=== PATIENT | female | born 1980 | race Caucasian/White ===

== ENCOUNTER 2023-02-09 20:13 | Outpatient (REF) | payer BC, MEDICAID, SELFPAY ==
[2023-02-12 09:09] LABS: Age Gdln ACOG Testing Note (.); HPV Aptima Negative (Negative); IGP, Aptima HPV, rfx 16/18,45 Note (.)
== END 2023-02-09 20:14 | disposition home or self-care (01) ==
LOC: LAB 20:13
PROVIDERS: PCP Internal Medicine; Visit Provider Physician Assistant
DX: Z12.4 Encounter for screening for malignant neoplasm of cervix (principal); Z11.51 Encounter for screening for human papillomavirus (HPV)
CPT/HCPCS: 87624; G0145

== ENCOUNTER 2023-09-07 14:41 | Outpatient (OUT) | payer BC, SELFPAY ==
--- NOTE | 2023-09-07 14:56 | CA_ITS ---
[facility] Test Date: 2023-09-22 Pat Name: GORDON REYNA Department: Room: - Gender: Female [employer]: : 1980 Requested By: MARISELA FAUSTIN Order Number: [id number] Reading MD: NOE GARCÍA Interpretive Statements Predominant rhythm is sinus with average rate of 81 bpm Tachycardia - max rate of 115 bpm - longest episode of 5min 11sec with rates between 112-115 bpm Bradycardia - min rate of 53 bpm - longest episode of 7sec with rates between 53-54 bpm Ventricular ectopy - 401 total (<1% ) Patient triggered events: 32 - no symptoms recorded - associated with NSR - associated with PVCs IMpression: Predominant rhythm is sinus with average rate of 81 bpm Fastest rate of 115 bpm and slowest rate of 53 bpm 401 PVC No atrial fibrillation No pauses or blocks Electronically Signed On 09-23-2023 7:08:00 EST by NOE GARCÍA
== END 2023-09-07 14:42 | disposition home or self-care (01) ==
LOC: CARD 14:41
PROVIDERS: PCP Internal Medicine; Visit Provider Internal Medicine
DX: R00.2 Palpitations (principal); I47.10 Supraventricular tachycardia, unspecified; I34.1 Nonrheumatic mitral (valve) prolapse
CPT/HCPCS: 93242

== ENCOUNTER 2024-05-05 19:24 | Outpatient (REF) | payer BC, SELFPAY ==
--- OUTSIDE RECORDS SUMMARY | 2024-05-05 19:28 | XMS_ITS | CCD ---
Author Organization [facility] Care Team Providers Care Pre Assembly Wirer Name Role Phone POOL, MANDI E Unavailable Unavailable MURO, KO B Unavailable Unavailable POOL, MANDI E Unavailable Unavailable MURO, KO B Unavailable Unavailable POOL, MANDI E Unavailable Unavailable MURO, KO B Unavailable Unavailable POOL, MANDI E Unavailable Unavailable MURO, KO B Unavailable Unavailable POOL, MANDI E Unavailable Unavailable MURO, KO B Unavailable Unavailable HILL BERGMAN, LANG F Unavailable Unavail able HILL BERGMAN, LANG F Unavailable Unavail able MURO, KO B Unavailable Unavailable POOL, MANDI E Unavailable Unavailable MURO, KO B Unavailable Unavailable GUICHO CHRISTIANSEN Admitting Unavailable GUICHO CHRISTIANSEN Consulting Unavailable GUICHO CHRISTIANSEN Attending Unavailable BHASKAR, DR ANTONIO Primary Care Unavailable BHASKAR, DR ANTONIO Primary Care Unavailable GÓMEZ, DR PARKER Admitting Unavailable GÓMEZ, DR PARKER Attending Unavailable ROSIE ABARCA Consulting Unavailable ZIGGY, DR WILLIAMSON Admitting Unavailable ZIGGY, DR WILLIAMSON Consulting Unavailable BHASKAR, DR ANTONIO Primary Care Unavailable ZIGGY, DR WILLIAMSON Attending Unavailable ZIGGY, DR WILLIAMSON Admitting Unavailable ZIGGY, DR WILLIAMSON Consulting Unavailable BHASKAR, DR ANTONIO Primary Care Unavailable ZIGGY, DR WILLIAMSON Attending Unavailable ZIGGY, DR WILLIAMSON Admitting Unavailable ZIGGY, DR WILLIAMSON Consulting Unavailable BHASKAR, DR ANTONIO Primary Care Unavailable ZIGGY, DR WILLIAMSON Attending Unavailable AGLUCY RENO Consulting Unavailable MAKSIM RODRÍGUEZ Consulting Unavailable ZIGGY, DR WILLIAMSON Admitting Unavailable BHASKAR, DR ANTONIO Primary Care Unavailable ZIGGY, DR WILLIAMSON Attending Unavailable ZIGGY, DR WILLIAMSON Admitting Unavailable ZIGGY, DR WILLIAMSON Consulting Unavailable BHASKAR, DR ANTONIO Primary Care Unavailable ZIGGY, DR WILLIAMSON Attending Unavailable NICOL BRITO Attending Unavailable NICOL BRITO Admitting Unavailable NICOL BRITO Consulting Unavailable BHASKAR, DR ANTONIO Primary Care Unavailable YO, DR ALLA Gu Attending Unavailable HEMKARENA, DR ALLA Gu Admitting Unavailable BHASKAR, DR ANTONIO Primary Care Unavailable JYOTI, DR MELINDA Teran Consulting Unavailable YO, DR ALLA Gu Consulting Unavailable ZIGGY, DR WILLIAMSON Attending Unavailable ZIGGY, DR WILLIAMSON Admitting Unavailable BHASKAR, DR ANTONIO Primary Care Unavailable LAUREL, DR LISETTE Navarro Consulting Unavailable ZIGGY, DR WILLIAMSON Consulting Unavailable Bhaskar, II Ko Primary Care Provider HARLEY Thacker Attending Provider Zuleima Thacker Unavailable Bhaskar, II Ko Primary Care Provider [phone] MICHAEL Naranjo Attending Provider DO Marlin Eisenberg Attending Provider BLANCHE SHABAZZ Attending Unavailable KO MURO Attending Unavailable ALLA RAM Attending Unavailable Marlin Eisenberg Admitting Unavailable Marlin Eisenberg Attending Unavailable Ko Muro Primary [facility] Unavailable Vin Naranjo Admitting Unavailable Vin Naranjo Attending Unavailable Ko Muro [facility] Unavailable Medications Current Medications Medication Drug Class(es) Dates Sig (Normalized) Sig (Original) ALPRAZolam 0.25 mg oral tablet (4 sources) Benzodiazepine Start: 10-20-2023 take 1 tablet by mouth once daily at bedtime Alprazolam (Xanax) 0.25 mg tablet Active 0.25 MG PO Daily at bedtime October 20, 2023 12:00am Xanax Active loratadine 10 mg oral tablet (1 source) take 1 tablet by mouth once daily Loratadine 10 MG take 1 tablet by mouth once daily Oral for 30 Active 24 hr metoprolol succinate 50 mg extended release oral tablet (6 sources) beta-Adrenergic Davian Start: 11-20-2023 take 50 mg by mouth once daily Metoprolol Succinate Active 50 MG PO Daily November 20, 2023 12:00am Start: 06-22-2018 End: 10-20-2023 take 50 mg by mouth every six hours Metoprolol Tartrate Discontinued 50 MG PO Q6H June 22, 2018 1:00am October 20, 2023 3:08pm Metoprolol Succi simba Active Wrist Splint/Right XL - (1 source) Start: 08-01-2022 Wrist Splint/R ight XL - as directed Jul, Active zolpidem tartrate 5 mg oral tablet (4 sources) gamma-Aminobuty izzy Acid-ergic Agonist Start: 10-20-2023 take 1 tablet by mouth once daily at bedtime Zolpidem (Ambien) 5 mg tablet Active 5 MG PO Daily at bedtime October 20, 2023 12:00am may repeat once if no response in 30-60 minutes Ambien Active Completed/Discontinued Medications Medication Drug Class(es) Dates Sig (Normalized) Sig (Original) acetaminophen 325 mg / HYDROcodone bitartrate 5 mg oral tablet (9 sources) Opioid Agonist Start: 07-08-2018 End: 07-15-2018 take 1 tablet by mouth every six hours Hydrocodone-Acetami nophen Discontinued 1 TAB PO Q6H 28 7 July 08, 2018 July 15, 2018 1:02am Start: 06-22-2018 Hydrocodone-Ac etaminophen Active 1 TAB PO As Directed June 22, 2018 1:00am adapalene 0.001 mg/mg topical gel (5 sources) Retinoid Start: 06-22-2018 End: 07-08-2018 Adapalene Discontinued 1 APPLIC TOPICAL Daily at bedtime June 22, 2018 1:00am July 08, 2018 8:35am Adapalene 0.1 % apply to affected area ON FACE at bedtime if needed External for 30 Active ibuprofen 200 mg oral tablet (4 sources) Nonsteroidal Anti-inflammatory Drug Start: 06-22-2018 End: 10-20-2023 take 600 mg by mouth three times daily Ibuprofen Discontinued 600 MG PO Three times daily June 22, 2018 1:00am October 20, 2023 3:08pm sertraline 25 mg oral tablet (3 sources) Serotonin Reuptake Inhibitor Start: 10-20-2023 End: 11-20-2023 take 25 mg by mouth once daily Sertraline Discontinued 25 MG PO Daily October 20, 2023 12:00am November 20, 2023 7:22am Problems Active Problems Problem Classification Problem Date Documented Da te Episodic/Chronic Anxiety disorders (1 source) Anxiety disorder, unspecified; Translations: [ANXIETY DISORDER UNSPECIFIED] Onset: 03-12-2022 Chronic Esophageal disorders (1 source) Gastro-esophageal reflux disease without esophagitis; Translations: [GERD WITHOUT ESOPHAGITIS] Onset: 03-12-2022 Chronic Genitourinary congenital anomalies (3 sources) Aplasia of body of uterus; Translations: [Agenesis and aplasia of uterus] 10-20-2023 Chronic Menstrual disorders (7 sources) Amenorrhea, unspecified; Translations: [Excessive and frequent menstruation with irregular cycle] Onset: 01-29-2017 Chronic Neoplasms of unspecified nature or uncertain behavior (1 source) Neoplastic disease; Translations: [Neoplasm of unspecified behavior of bone, soft tissue, and skin] Episodic Other female genital disorders (5 sources) Unspecified dyspareunia; Translations: [UNSPECIFIED DYSPAREUNIA] Onset: 03-05-2022 Chronic Other female genital disorders (4 sources) Abnormal uterine and vaginal bleeding, unspecified; Translations: [ABNORMAL UTERINE VAGINAL BLEED UNS] Onset: 11-04-2021 Chronic Other gastrointestinal disorders (3 sources) Constipation alternates with diarrhea; Translations: [Other specified symptoms and signs involving the digestive system and abdomen] 10-20-2023 Episodic Other gastrointestinal disorders (3 sources) H/O: abdominal hernia; Translations: [Personal history of other diseases of the digestive system] 10-20-2023 Episodic Other gastrointestinal disorders (1 source) Diarrhea, unspecified; Translations: [Diarrhea, unspecified] Onset: 11-20-2023 Episodic Other nervous system disorders (1 source) Carpal tunnel syndrome, right upper limb Chronic Other non-traumatic joint disorders (1 source) Pain in right wrist Episodic Substance-related disorders (1 source) Nicotine dependence, cigarettes, uncomplicated; Translations: [NICOTINE DEPEND CIGARETTES UNCOMP] Onset: 03-05-2022 Chronic Unclassified (4 sources) 13 weeks gestation of ; Translations: [27 weeks gestation of ] Onset: 02-24-2017 Unclassified (1 source) PERSONAL HISTORY OF COVID-19; Translations: [PERSONAL HISTORY OF COVID-19] Onset: 03-12-2022 Unclassified (1 source) CONTACT W/AND (SUSP) EXPOS COVID-19; Translations: [CONTACT W/AND (SUSP) EXPOS COVID-19] Onset: 03-02-2022 Unclassified (1 source) COUGH, UNSPECIFIED; Translations: [COUGH, UNSPECIFIED] Onset: 08-07-2021 Viral infection (1 source) COVID-19; Translations: [COVID-19] Onset: 07-23-2021 Past or Other Problems Problem Classification Problem Date Documented Da te Episodic/Chronic Abdominal pain (7 sources) Lower abdominal pain; Translations: [Lower abdominal pain, unspecified] Onset: 10-29-2023 10-20-2023 Episodic Contraceptive and procreative management (4 sources) Encounter for sterilization; Translations: [ENCOUNTER FOR STERILIZATION] Onset: 02-28-2022 Episodic Genitourinary symptoms and ill-defined conditions (2 sources) Dysuria; Translations: [Other symptoms and signs involving the genitourinary system] Onset: 09-30-2017 Episodic Nonspecific chest pain (4 sources) Chest pain, unspecified; Translations: [CHEST PAIN UNSPECIFIED] Onset: 07-31-2021 Episodic Normal and/or delivery (5 sources) Encounter for supervision of normal , unspecified, first trimester; Translations: [Encounter for full-term uncomplicated delivery] Onset: 01-29-2017 Episodic Other aftercare (1 source) Other salvage determiner (current) drug therapy; Translations: [OTH LONG-TERM CURRENT DRUG THERAPY] Onset: 03-12-2022 Episodic Other complications of (3 sources) Outcome of delivery, unspecified; Translations: [Supervision of other high risk pregnancies, third trimester] Onset: 06-10-2017 Episodic Other connective tissue disease (4 sources) Pain in right leg; Translations: [PAIN IN RIGHT LEG] Onset: 03-11-2022 Episodic Other gastrointestinal disorders (4 sources) Other specified symptoms and signs involving the digestive system and abdomen; Translations: [Other symptoms involving digestive system] Onset: 10-29-2023 10-20-2023 Episodic Other lower respiratory disease (1 source) Personal history of pneumonia (recurrent); Translations: [PERSONAL HX OF PNEUMONIA RECURRENT] Onset: 03-12-2022 Episodic Other upper respiratory infections (4 sources) Acute upper respiratory infection, unspecified; Translations: [ACUTE UP RESPIRATORY INFECTION UNS] Onset: 07-16-2021 Episodic Ovarian cyst (1 source) Other ovarian cyst, right side; Translations: [OTHER OVARIAN CYST RIGHT SIDE] Onset: 11-20-2021 Episodic Residual codes; unclassified (1 source) Other specified postprocedural states; Translations: [[facility] SPECIFIED POSTPROCEDURAL STATES] Onset: 03-12-2022 Episodic Results Test Name Value Interpretation Reference Range Facility HCG ( test) Alan d Ql (U)Ordered By: Marlin Eisenberg on 11-20-2023 HCG ( test) Ql (U) Negative [facility] HCG,Urineon 11-20-2023 Beta HCG ( test) Ql (U) Negative Normal [facility] Comment on above: Result Comment: PERF ORMED BY: [place] [address] PATHOLOGIST [employer] SHOBHA LANDIN M.D. Performed By: #### U HCG #### [address] Niranjan 11-20-2023 L Specimen: [id number] Received: 11/20/23 Status: ISSAC Capellan Num: [id number] Spec Type: Surgical Subm Dr: Marlin Eisenberg DO Tissues: A Colon Biopsy (RANDOM RT) B Colon Biopsy (RANDOM LT) C Colon Biopsy (SIGMOID POLYP) Procedures: HE/6, Gross/Micro L4/3 Age/ Patient Sex Location Account Attending Physician Gordon Reyna 43/F [id number] Marlin Eisenberg DO SPEC NUM: [id number] RECD: 11/20/23 STATUS: ISSAC CAPELLAN NUM: [id number] GOVIND: 11/20/23- SUBM DR: Marlin Eisenberg DO ENTERED: 11/20/[address] [facility] [address]: SPEC TYPE: Surgical DEPT: S ORDERED: HE/6, Gross/Micro L4/3 ORDERED: HE/6, Gross/Micro L4/3 Pathological Diagnosis A. Right colon, biopsies: - No active colitis, features of microscopic (lymphocytic) colitis, collagenous colitis or other diagnostic abnormalities. B. Left colon, biopsies: - No active colitis, features of microscopic (lymphocytic) colitis, collagenous colitis or other diagnostic abnormalities. C. Sigmoid polyp, polypectomy: - Hyperplastic polyp. Gross Description A. Received in formalin, labeled with the patient's name and random right colon BX are 3 mera mucosal tissue fragments ranging from 0.4 x 0.3 x 0.1 cm to 0.3 x 0.3 x 0.1 cm, entirely submitted in A1. B. Received in formalin, labeled with the patient's name and random left colon BX are 3 mera mucosal tissue fragments ranging from 0.6 x 0.3 x 0.1 cm to 0.4 x 0.3 x 0.1 cm, entirely submitted in B1. C. Received in formalin labeled with the patient's name and sigmoid polyp is a 0.3 x 0.2 x 0.2 cm mera polypoid tissue fragment, entirely submitted in C1. ---- Specimen: [id number] Received: 11/20/23 Status: ISSAC Capellan Num: [id number] Spec Type: Surgical Subm Dr: Marlin Eisenberg DO Tissues: A Colon Biopsy (RANDOM RT) B Colon Biopsy (RANDOM LT) C Colon Biopsy (SIGMOID POLYP) Procedures: HE/6, Irving/Jim L4/3 ---- Patient: Gordon Reyna [id number] (Continued) ---- Specimen: [id number] Received: 11/20/23 (Continued) Gross Description (Continued) Signed (signature on file) Lisette Cosby MD 11/23/23 1437 ---- Specimen: Received: 11/20/23 Status: ISSAC Matajohn Num: [id number] Spec Type: Surgical Subm Dr: Marlin Eisenberg DO Tissues: A Colon Biopsy (RANDOM RT) B Colon Biopsy (RANDOM LT) C Colon Biopsy (SIGMOID POLYP) Procedures: HE/Anders, Gross/Micro L4/3 ---- Patient: Gordon Reyna [id number] (Continued) ---- Specimen: Received: 11/20/23 (Continued) Gross Description (Continued) Clinical history: Constipation/diarrhea. Rule out microscopic colitis CPT Codes 96935u8 ---- ---- Specimen: [id number] Received: 11/20/23 Status: ISSAC Marilia Num: [id number] Spec Type: Surgical Subm Dr: Marlin Eisenberg DO Tissues: A Colon Biopsy (RANDOM RT) B Colon Biopsy (RANDOM LT) C Colon Biopsy (SIGMOID POLYP) Procedures: MICHELLE/Irving Mcnamara/Jim L4/3 ---- Patient: Gordon Reyna [id number] (Continued) ---- Signed (signature on file) Lisette Cosby MD 11/23/23 5118 Normal [facility] CT abdomen pelvis w mraisol CT abdomen pelvis w con [facility] [place] [address] [place] [address] CT Scan Report Signed Patient: Gordon Reyna MR#: [id number] : 1980 Acct:[id number] Age/Sex: 43 / F ADM Date: 10/29/23 Loc: CT Room: Type: [facility] Attending Dr: Vin Naranjo APRN Copies to: Vin Naranjo APRN Ordering Provider: Vin Naranjo APRN Date of Service: 10/29/23 CT/CT abdomen pelvis w con: R10.30 - Lower abdominal pain, unspecified CT ABDOMEN AND PELVIS WITH INTRAVENOUS CONTRAST: CLINICAL HISTORY: Bilateral lower abdominal pain. COMPARISON: None TECHNIQUE: Spiral images were obtained through the abdomen and pelvis following the administration of intravenous contrast. This CT exam was performed using one or more following dose reduction techniques: Automated exposure control, adjustment of the mA and/or kV according to patient size, or use of iterative reconstruction technique. FINDINGS: Lung Bases: [Mild bibasilar atelectasis/scarring.] Organs:Liver gallbladder portal vein spleen pancreas adrenal glands kidneys and aorta all appear unremarkable.[ GI: Stomach is grossly unremarkable. Small bowel appears nondilated. Appendix is normal. No acute colonic abnormality.[ Pelvis:[Urinary bladder is grossly unremarkable. Uterus is grossly unremarkable. No adnexal mass. Right ovarian cyst measuring 3.4 cm.] Peritoneum/Retroperito neum:No free air, free fluid or lymphadenopathy.[ Abd wall/Bones:Abdominal wall demonstrated no acute findings. Osseous structures demonstrate no acute bony process.[ CT/CT abdomen pelvis w con IMPRESSION: No acute findings. 3.4 cm right ovarian cyst. Impression dictated by: Tee Hall Jr., D.OWestley10/29/2023 2:04 PM Dictation Location: [id number] Transcribed By: [place] 10/29/23 1404 Dictated By: Tee Hall Jr, DO 10/29/23 1402 Signed By: 10/29/23 140 Normal [facility] XR wrist RT min 3V*on 2022 XR wrist RT min 3V* [facility] Other XR wrist RT min 3V* [facility] [place] [facility] Other XR wrist RT min 3V* [address] Other XR wrist RT min 3V* [place] [address] [facility] Other XR wrist RT min 3V* XRay Report [facility] Other XR wrist RT min 3V* Signed [facility] Other XR wrist RT min 3V* Patient: Gordon Reyna MR#: [id number] [facility] Other XR wrist RT min 3V* : 1980 Acct:[id number] [facility] Other XR wrist RT min 3V* Age/Sex: 41 / F ADM Date: 08/01/22 [facility] Other XR wrist RT min 3V* Loc: XDUCLY Room: Type: [facility] Other XR wrist RT min 3V* Attending Dr: Zuleima SOUZA [facility] Other XR wrist RT min 3V* Copies to: HARLEY Nichole [facility] Other XR wrist RT min 3V* Ordering Provider: HARLEY Nichole [facility] Other XR wrist RT min 3V* Date of Service: 08/01/22 [facility] Other XR wrist RT min 3V* XR/XR wrist RT min 3V*: Right wrist pain [facility] Other XR wrist RT min 3V* XR wrist RT min 3V* 08/01/2022 5:40 PM [facility] Other XR wrist RT min 3V* SIGNS AND SYMPTOMS: Fall with pain along the palmar aspect of the right wrist [facility] Other XR wrist RT min 3V* PROTOCOL: Frontal, lateral, and oblique radiographs of the right breast [facility] Other XR wrist RT min 3V* COMPARISON: None [facility] Other XR wrist RT min 3V* FINDINGS: [facility] Other XR wrist RT min 3V* The radiocarpal join t is preserved. There is no fracture or dislocation. No significant soft tissue [facility] Other XR wrist RT min 3V* swelling. [facility] Other XR wrist RT min 3V* XR/XR wrist RT min 3V* [facility] Other XR wrist RT min 3V* IMPRESSION: [facility] Other XR wrist RT min 3V* No acute bony injury or significant degenerative change. [facility] Other XR wrist RT min 3V* Impression dictated by: Maurilio Driver M.D.08/01/2022 5:57 PM [facility] Other XR wrist RT min 3V* Dictation Location: [place] [address] [facility] Other XR wrist RT min 3V* Transcribed By: JOEL 08/01/221756 [facility] Other XR wrist RT min 3V* Dictated By: Maurilio Driver II, MD 08/01/221754 [facility] Other XR wrist RT min 3V* Signed By: [facility] Other XR wrist RT min 3V* 08/01/221756 [facility] Other ESTRONEon 04-30-2022 Estrone, Serum 47 pg/mL Normal 27-231 [facility] Comment on above: Result Comment: Rang e Adult (Premenopausal) 27 - 231 Menstrual Cycle (1-10 days) 19 - 149 Menstrual Cycle (11-20 days) 32 - 176 Menstrual Cycle (21-30 days) 37 - 200 Performed By: #### R SPLUS #### [facility] [address] [place] [address] Dr. Johnny Johnson TESTOSTERONE, FREE,DIRECT, T OTALon 04-30-2022 Free Testosterone(Direct ) 3.2 pg/mL Normal 0.0-4.2 [facility] Comment on above: Result Comment: Perf ormed at: BN Performed By: #### R SPLUS #### [facility] [address] [place] [address] Dr. Johnny Johnson Testosterone [Mass/Vol] 41 ng/dL Normal 8-60 [facility] Comment on above: Result Comment: Perf ormed at: CB Performed By: #### R SPLUS #### [facility] [address] [place] [address] Dr. Johnny Johnson SEROTONINon 04-29-2022 Serotonin, Serum 185 ng/mL Normal 31-207 [facility] Comment on above: Performed By: #### R SPLUS #### [facility] [address] [place] [address] Dr. Johnny Johnson VIT D 1 25 DIHYDROXYon 04-28 Calcitriol(1,25 di-OH Vit D) 33.4 pg/mL Normal 24.8-81.5 [facility] Comment on above: Result Comment: Pl ease note reference interval change Performed By: #### H CGSUB #### [facility] [address] [place] [address] Dr. Johnny Johnson CORTISOLon 04-26-2022 Cortisol 18.0 ug/dL Normal [facility] Comment on above: Result Comment: Chris isol AM 6.2 - 19.4 Cortisol PM 2.3 - 11.9 Performed By: #### H CGSUB #### [facility] [address] [place] [address] Dr. Johnny Johnson DHEA-SULFATEon 04-26-2022 DHEA-Sulfate 124.0 ug/dL Normal 57.3-279.2 [facility] Comment on above: Performed By: #### D NAYLA #### [facility] [address] [place] [address] Dr. Johnny Johnson ESTRADIOLon 04-26-2022 Estradiol 111.0 pg/mL Normal [facility] Comment on above: Result Comment: Adul t Female: Follicular phase 12.5 - 166.0 Ovulation phase 85.8 - 498.0 Luteal phase 43.8 - 211.0 Postmenopausal <6.0 - 54.7 1st trimester 215.0 - >4300.0 Stacie ECLIA methodology Performed By: #### E CONNOR #### [facility] [address] [place] [address] Dr. Johnny Johnson INSULINon 04-26-2022 Insulin 12.0 uIU/mL Normal 2.6-24.9 [facility] Comment on above: Performed By: #### H CGSUB #### [facility] [address] [place] [address] Dr. Johnny Johnson PROGESTERONEon 04-26-2022 Progesterone 0.4 ng/mL Normal [facility] Comment on above: Result Comment: Foll icular phase 0.1 - 0.9 Luteal phase 1.8 - 23.9 Ovulation phase 0.1 - 12.0 First trimester 11.0 - 44.3 Second trimester 25.4 - 83.3 Third trimester 58.7 - 214.0 Postmenopausal 0.0 - 0.1 Performed By: #### P ARCHIEES #### [facility] [address] [place] [address] Dr. Johnny Johnson GLUCOSE BLOODon 04-25-2022 Glucose [Mass/Vol] 95 mg/dL Normal 74-106 [facility] Comment on above: Performed By: #### G MONO #### [facility] [address] [place] [address] Dr. Johnny Johnson HCG-BETA SUBUNIT QUANTon hCG,Beta Subunit,Qnt,Serum <1 Normal [facility] Comment on above: Result Comment: Fema le (Non-) 0 - 5 (Postmenopausal) 0 - 8 . Female () Weeks of Gestation 3 6 - 71 4 10 - 750 5 655 - 1282 6 085 - 39039 7 [phone] -[id number] 8 28694 -[phone] 9 50465 -812159 10 25910 -692047 12 57862 -784409 14 85305 - 67234 15 33574 - 33786 16 8385 - 52257 17 0698 - 16888 18 1569 - 51829 Stacie ECLIA methodology Performed By: #### H CGSUB #### [facility] [address] [place] [address] Dr. Johnny Johnsno CBC AUTO DIFFon 02-26-2022 BASO # 0.0 103/ul Normal 0.0-0.1 [facility] Comment on above: Performed By: #### R SPLUS #### [facility] [address] [place] [address] Dr. Johnny Johnson Basophils/100 WBC (Bld) 0.7 % Normal 0.2-2.0 [facility] Comment on above: Performed By: #### R SPLUS #### [facility] [address] [place] [address] Dr. Johnny Johnson EO # 0.1 103/ul Normal 0.0-0.7 [facility] Comment on above: Performed By: #### R SPLUS #### [facility] [address] [place] [address] Dr. Johnny Johnson Eosinophils/100 WBC (Bld) 1.7 % Normal 0.9-7.0 [facility] Comment on above: Performed By: #### R SPLUS #### [facility] [address] [place] [address] Dr. Johnny Johnson Erythrocyte distribution width (RBC) [Ratio] 13.4 % Normal 11.0-15.0 [facility] Comment on above: Performed By: #### R SPLUS #### [facility] [address] [place] [address] Dr. Johnny Johnson Hematocrit (Bld) [Volume fraction] 42.4 % Normal 36.0-48.0 [facility] Comment on above: Performed By: #### R SPLUS #### [facility] [address] [place] [address] Dr. Johnny Johnson Hemoglobin (Bld) [Mass/Vol] 14.0 g/dL Normal 12.0-16.0 [facility] Comment on above: Performed By: #### R SPLUS #### [facility] [address] [place] [address] Dr. Johnny Johnson IG # 0.01 10e3/ul Normal 0.00-0.03 [facility] Comment on above: Performed By: #### R SPLUS #### [facility] [address] [place] [address] Dr. Johnny Johnson IG % 0.2 % Normal 0.0-0.5 [facility] Comment on above: Performed By: #### R SPLUS #### [facility] Laboratory [address] [place] [address] Dr. Johnny Johnson LYMPH # 2.4 103/ul Normal 1.2-3.8 [facility] Comment on above: Performed By: #### R SPLUS #### [facility] Laboratory [address] [place] [address] Dr. Johnny Johnson Lymphocytes/100 WBC (Bld) 41.4 % Normal 20.5-60.0 [facility] Comment on above: Performed By: #### R SPLUS #### [facility] Laboratory [address] [place] [address] Dr. Johnny Johnson MANUAL DIFF REQ NO Normal [facility] Comment on above: Performed By: #### R SPLUS #### [facility] Laboratory [address] [place] [address] Dr. Johnny Johnson MCH (RBC) [Entitic mass] 29.9 pg Normal 26.7-34.0 [facility] Comment on above: Performed By: #### R SPLUS #### [facility] Laboratory [address] [place] [address] Dr. Johnny Johnson MCHC (RBC) [Mass/Vol] 33.0 g/dL Normal 29.9-35.2 [facility] Comment on above: Performed By: #### R SPLUS #### [facility] Laboratory [address] [address] [address] Johnny Johnson MCV (RBC) [Entitic vol] 90.6 fL Normal 81.0-99.0 [facility] Comment on above: Performed By: #### R SPLUS #### [facility] Laboratory [address] [address] [address] Johnny Johnson MONO # 0.4 103/ul Normal 0.3-0.8 [facility] Comment on above: Performed By: #### R SPLUS #### [facility] Laboratory [address] [address] [address] Johnny Johnson Monocytes/100 WBC (Bld) 6.6 % Normal 1.7-12.0 [facility] Comment on above: Performed By: #### R SPLUS #### [facility] Laboratory [address] [place] [address] Dr. Johnny Johnson NEUT # 2.9 103/ul Normal 1.4-6.5 [facility] Comment on above: Performed By: #### R SPLUS #### [facility] Laboratory [address] [place] [address] Dr. Johnny Johnson Neutrophils/100 WBC (Bld) 49.4 % Normal 43.0-75.0 [facility] Comment on above: Performed By: #### R SPLUS #### [facility] Laboratory [address] [place] [address] Dr. Johnny Johnson Platelet mean volume (Bld) [Entitic vol] 10.5 fL Normal 9.5-13.5 [facility] Comment on above: Performed By: #### R SPLUS #### [facility] Laboratory [address] [place] [address] Dr. Johnny Johnson PLT 221 103/ul Normal 150-450 [facility] Comment on above: Performed By: #### R SPLUS #### [facility] Laboratory [address] [place] [address] Dr. Johnny Johnson RBC 4.68 106/ul Normal 4.20-5.40 [facility] Comment on above: Performed By: #### R SPLUS #### [facility] Laboratory [address] [place], [place] [address] Dr. Johnny Johnson WBC 5.9 103/ul Normal 4.0-11.0 [facility] Comment on above: Performed By: #### R LIT #### [facility] [address] [place], [place] [address] Dr. Johnny Johnson Covid-19 PCR ([facility])on SARS-CoV-2 (COVID-19) RNA ANATOLY+probe Ql (Unsp spec) Not detected Normal NOT DETECTED [facility] Comment on above: Result Comment: This test is not yet approved or cleared by the [place] FDA. When there are no FDA-approved or cleared tests available, and other criteria are met, FDA can make tests available under an emergency access mechanism called an Emergency Use Authorization (EUA). The EUA for this test is supported by the Bottom[employer] Operator of Health and Human Service's (HHS's) declaration that circumstances exist to justify the emergency use of in vitro diagnostics for the detection and/or diagnosis of the virus that causes COVID-19. This EUA will remain in effect (meaning this test can be used) for the duration of the COVID-19 declaration justifying emergency of IVDs, unless it is terminated or revoked by FDA (after which the test may no longer be used). When diagnostic testing is negative, the possibility of a false negative should be considered in the context of a patient's recent exposures and the presence of clinical signs and symptoms consistent with SARS-CoV-2. Performed By: #### R LIT #### [facility] Laboratory [address] [place] [address] [id number] [address] Johnny Johnson US PELVIS AND TRANSVAGon US PELVIS AND TRANSVAG EXAMINATION: US PELVIS AND TRANSVAG HISTORY: Excessive menstruation with irregular cycle COMPARISON: 09/05/2019 FINDINGS: Transabdominal and transvaginal images The uterus is normal in size, contour and echotexture measuring 9.8 x 4.3 x 6.1 cm, anteverted. The endometrium measures 6.2 mm, normal. The right ovary is normal in size and contour measuring 3.9 x 2.3 x 3.9 cm. Area of anechoic echogenicity measuring 2.7 x 2.1 x 1.9 cm. Normal color and Doppler flow. Normal resistive index of 0.53. Left ovary is normal in appearance measuring 3.1 x 1.9 x 1.5 cm. Normal color Doppler flow. Normal resistive index of 0.62. IMPRESSION: 2.7 cm right ovarian simple cyst No ultrasound explanation for the patient's menorrhagia Electronically authenticated by: LISETTE HAIRSTON Date: 2021-11-18 17:12 Normal [facility] CBC AUTO DIFFon 11-15-2021 BASO # 0.0 103/ul Normal 0.0-0.1 [facility] Comment on above: Performed By: #### H CGSUB #### [facility] Laboratory [address] [place] [address] Dr. Johnny Johnson Basophils/100 WBC (Bld) 0.3 % Normal 0.2-2.0 [facility] Comment on above: Performed By: #### H CGSUB #### [facility] Laboratory [address] [place] [address] Dr. Johnny Johnson EO # 0.1 103/ul Normal 0.0-0.7 [facility] Comment on above: Performed By: #### H CGSUB #### [facility] Laboratory [address] [place] [address] Dr. Johnny Johnson Eosinophils/100 WBC (Bld) 1.1 % Normal 0.9-7.0 [facility] Comment on above: Performed By: #### H CGSUB #### [facility] Laboratory [address] [place] [address] Dr. Johnny Johnson Erythrocyte distribution width (RBC) [Ratio] 13.1 % Normal 11.0-15.0 [facility] Comment on above: Performed By: #### H CGSUB #### [facility] Laboratory [address] [place] [address] Dr. Johnny Johnson Hematocrit (Bld) [Volume fraction] 40.2 % Normal 36.0-48.0 [facility] Comment on above: Performed By: #### H CGSUB #### [facility] Laboratory [address] [place] [address] Dr. Johnny Johnson Hemoglobin (Bld) [Mass/Vol] 13.1 g/dL Normal 12.0-16.0 [facility] Comment on above: Performed By: #### H CGSUB #### [facility] [address] [place] [address] Dr. Johnny Johnson IG # 0.02 10e3/ul Normal 0.00-0.03 [facility] Comment on above: Performed By: #### H CGSUB #### [facility] [address] [place] [address] Dr. Johnny Johnson IG % 0.2 % Normal 0.0-0.5 [facility] Comment on above: Performed By: #### H CGSUB #### [facility] [address] [place] [address] Dr. Johnny Johnson LYMPH # 2.2 103/ul Normal 1.2-3.8 [facility] Comment on above: Performed By: #### H CGSUB #### [facility] [address] [place] [address] Dr. Johnny Johnson Lymphocytes/100 WBC (Bld) 25.1 % Normal 20.5-60.0 [facility] Comment on above: Performed By: #### H CGSUB #### [facility] [address] [place] [address] Dr. Johnny Johnson MANUAL DIFF REQ NO Normal [facility] Comment on above: Performed By: #### H CGSUB #### [facility] [address] [place] [address] Dr. Johnny Johnson MCH (RBC) [Entitic mass] 30.0 pg Normal 26.7-34.0 [facility] Comment on above: Performed By: #### H CGSUB #### [facility] Laboratory [address] [place] [address] Dr. Johnny Johnson MCHC (RBC) [Mass/Vol] 32.6 g/dL Normal 29.9-35.2 [facility] Comment on above: Performed By: #### H CGSUB #### [facility] Laboratory [address] [place] [address] Dr. Johnny Johnson MCV (RBC) [Entitic vol] 92.0 fL Normal 81.0-99.0 [facility] Comment on above: Performed By: #### H CGSUB #### [facility] Laboratory [address] [place] [address] Dr. Johnny Johnson MONO # 0.6 103/ul Normal 0.3-0.8 [facility] Comment on above: Performed By: #### H CGSUB #### [facility] Laboratory [address] [place] [address] Dr. Johnny Johnson Monocytes/100 WBC (Bld) 6.5 % Normal 1.7-12.0 [facility] Comment on above: Performed By: #### H CGSUB #### [facility] Laboratory [address] [place] [address] Dr. Johnny Johnson NEUT # 5.9 103/ul Normal 1.4-6.5 [facility] Comment on above: Performed By: #### H CGSUB #### [facility] [address] [place] [address] Dr. Johnny Johnson Neutrophils/100 WBC (Bld) 66.8 % Normal 43.0-75.0 [facility] Comment on above: Performed By: #### H CGSUB #### [facility] Laboratory [address] [place] [address] Dr. Johnny Johnson Platelet mean volume (Bld) [Entitic vol] 10.7 fL Normal 9.5-13.5 [facility] Comment on above: Performed By: #### H CGSUB #### [facility] Laboratory [address] [place] [address] Dr. Johnny Johnson PLT 222 103/ul Normal 150-450 [facility] Comment on above: Performed By: #### H CGSUB #### [facility] [address] [place] [address] Dr. Johnny Johnson RBC 4.37 106/ul Normal 4.20-5.40 [facility] Comment on above: Performed By: #### H CGSUB #### [facility] [address] [place] [address] Dr. Johnny Johnson WBC 8.8 103/ul Normal 4.0-11.0 [facility] Comment on above: Performed By: #### H CGSUB #### [facility] Laboratory [address] [place] [address] Dr. Johnny Johnson PREG QUANT HCGon 11-15-2021 HCG QUANT <1 Normal [facility] Comment on above: Performed By: #### T SH, PREGQNT #### [facility] Laboratory [address] [place] [address] Dr. Johnny Johnson HCG RANGE SEE BELOW Normal [facility] Comment on above: Result Comment: 5-50 0-1 WEEK 40-300 1-2 WEEKS 100-1,000 2-3 WEEKS 500-6,000 3-4 WEEKS 5,000-200,000 1-2 MONTHS 10,000-100,000 2-3 MONTHS 3,000-50,000 2ND TRIMESTER 1,000-50,000 3RD TRIMESTER Performed By: #### T SH, PREGQNT #### [facility] [address] [place] [address] Dr. Johnny Johnson PROTIMEon 11-15-2021 INR Coag (PPP) [Relative time] 0.99 {INR} Normal [facility] Comment on above: Performed By: #### P TT, PT #### [facility] Laboratory [address] [place] [address] Dr. Johnny Johnson INR GUIDELINES SEE BELOW Normal The [facility] Comment on above: Result Comment: JEANCARLOS RED INR: 2.0 - 3.0 CONDITIONS NOT LISTED BELOW 2.5 - 3.5 FOR PROSTHETIC HEART VALVE REPLACEMENT 2.5 - 3.5 RECURRENT THROMBOSIS Performed By: #### P TT, PT #### [facility] [address] [place] [address] Dr. Johnny Johnson PT Coag (PPP) [Time] 10.7 s Normal 9.0-11.6 [facility] Comment on above: Performed By: #### P TT, PT #### [facility] [address] [place] [address] Dr. Johnny Johnson PTTon 11-15-2021 aPTT Coag (Bld) [Time] 27.6 s Normal 22.3-36.2 [facility] Comment on above: Performed By: #### P TT, PT #### [facility] [address] [place] [address] Dr. Johnny Johnson TSHon 11-15-2021 TSH 2.349 uIU/mL Normal 0.470-4.680 [facility] Comment on above: Performed By: #### T SH, PREGQNT #### [facility] [address] [place] [address] Dr. Johnny Johnson TSH RANGE SEE BELOW Normal [facility] Comment on above: Result Comment: <0.3 4 UIU/ml HYPERTHYROID 0.34-5.60 UIU/ml EUTHYROID >5.60 UIU/ml HYPOTHYROID Performed By: #### T SH, PREGQNT #### [facility] Laboratory [address] [place] [address] Dr. Johnny Johnson CBC AUTO DIFFon 11-04-2021 BASO # 0.0 103/ul Normal 0.0-0.1 [facility] Comment on above: Performed By: #### R SPLUS #### [facility] Laboratory [address] [place] [address] Dr. Johnny Johnson Basophils/100 WBC (Bld) 0.4 % Normal 0.2-2.0 [facility] Comment on above: Performed By: #### R SPLUS #### [facility] [address] [place] [address] Dr. Johnny Johnson EO # 0.1 103/ul Normal 0.0-0.7 [facility] Comment on above: Performed By: #### R SPLUS #### [facility] [address] [place] [address] Dr. Johnny Johnson Eosinophils/100 WBC (Bld) 0.9 % Normal 0.9-7.0 [facility] Comment on above: Performed By: #### R SPLUS #### [facility] Laboratory [address] [place] [address] Dr. Johnny Johnson Erythrocyte distribution width (RBC) [Ratio] 13.1 % Normal 11.0-15.0 [facility] Comment on above: Performed By: #### R SPLUS #### [facility] [address] [address] [address] Johnny Johnson Hematocrit (Bld) [Volume fraction] 43.0 % Normal 36.0-48.0 [facility] Comment on above: Performed By: #### R SPLUS #### [facility] [address] [address] [address] Johnny Johnson Hemoglobin (Bld) [Mass/Vol] 13.8 g/dL Normal 12.0-16.0 [facility] Comment on above: Performed By: #### R SPLUS #### [facility] [address] [address] [address] Johnny Johnson IG # 0.02 10e3/ul Normal 0.00-0.03 [facility] Comment on above: Performed By: #### R SPLUS #### [facility] [address] [place] [address] Dr. Johnny Johnson IG % 0.3 % Normal 0.0-0.5 [facility] Comment on above: Performed By: #### R SPLUS #### [facility] [address] [address] [address] Johnny Johnson LYMPH # 2.0 103/ul Normal 1.2-3.8 [facility] Comment on above: Performed By: #### R SPLUS #### [facility] [address] [address] [address] Johnny Johnson Lymphocytes/100 WBC (Bld) 27.1 % Normal 20.5-60.0 [facility] Comment on above: Performed By: #### R SPLUS #### [facility] [address] [address] [address] Johnny Johnson MANUAL DIFF REQ NO Normal [facility] Comment on above: Performed By: #### R SPLUS #### [facility] [address] [place] [address] Dr. Johnny Johnson MCH (RBC) [Entitic mass] 29.3 pg Normal 26.7-34.0 [facility] Comment on above: Performed By: #### R SPLUS #### [facility] [address] [address] [address] Johnny Johnson MCHC (RBC) [Mass/Vol] 32.1 g/dL Normal 29.9-35.2 [facility] Comment on above: Performed By: #### R SPLUS #### [facility] [address] [place] [address] Dr. Johnny Johnson MCV (RBC) [Entitic vol] 91.3 fL Normal 81.0-99.0 [facility] Comment on above: Performed By: #### R SPLUS #### [facility] [address] [place] [address] Dr. Johnny Johnson MONO # 0.5 103/ul Normal 0.3-0.8 [facility] Comment on above: Performed By: #### R SPLUS #### [facility] [address] [place] [address] Dr. Johnny Johnson Monocytes/100 WBC (Bld) 6.4 % Normal 1.7-12.0 [facility] Comment on above: Performed By: #### R SPLUS #### [facility] [address] [place] [address] Dr. Johnny Johnson NEUT # 4.8 103/ul Normal 1.4-6.5 [facility] Comment on above: Performed By: #### R SPLUS #### [facility] [address] [place] [address] Dr. Johnny Johnson Neutrophils/100 WBC (Bld) 64.9 % Normal 43.0-75.0 [facility] Comment on above: Performed By: #### R SPLUS #### [facility] [address] [place] [address] Dr. Johnny Johnson Platelet mean volume (Bld) [Entitic vol] 10.9 fL Normal 9.5-13.5 [facility] Comment on above: Performed By: #### R SPLUS #### [facility] [address] [place] [address] Dr. Johnny Johnson PLT 218 103/ul Normal 150-450 [facility] Comment on above: Performed By: #### R SPLUS #### [facility] [address] [address] [address] Johnny Johnson RBC 4.71 106/ul Normal 4.20-5.40 [facility] Comment on above: Performed By: #### R SPLUS #### [facility] [address] [address] [address] Johnny Johnson WBC 7.5 103/ul Normal 4.0-11.0 [facility] Comment on above: Performed By: #### R SPLUS #### [facility] [address] [place] [address] Dr. Johnny Johnson URon 11-04-2021 , QUAL Negative Normal NEGATIVE [facility] Comment on above: Performed By: #### H CGSUB #### [facility] [address] [place] [address] Dr. Johnny Johnson PROF CHEM 8 (BAS METB)on Anion gap [Moles/Vol] 17.4 mmol/L Normal [facility] Comment on above: Performed By: #### R SPLUS #### [facility] [address] [place] [address] Dr. Johnny Johnson Calcium [Mass/Vol] 8.6 mg/dL Normal 8.5-10.1 [facility] Comment on above: Performed By: #### R SPLUS #### [facility] [address] [place] [address] Dr. Johnny Johnson Chloride [Moles/Vol] 104 mmol/L Normal 98-107 [facility] Comment on above: Performed By: #### R SPLUS #### [facility] Laboratory [address] [place] [address] Dr. Johnny Johnson CO2 [Moles/Vol] 21.4 mmol/L Critically low 22.0-30.0 [facility] Comment on above: Performed By: #### R SPLUS #### [facility] [address] [place] [address] Dr. Johnny Johnson Creatinine [Mass/Vol] 0.62 mg/dL Normal 0.52-1.04 [facility] Comment on above: Performed By: #### R SPLUS #### [facility] [address] [address] [address] Johnny Johnson EGFR-AF WALLISIAN >60 Normal >=60 [facility] Comment on above: Performed By: #### R SPLUS #### [facility] [address] [address] [address] Johnny Johnson EGFR-NON AF WALLISIAN >60 Normal >=60 [facility] Comment on above: Performed By: #### R SPLUS #### [facility] [address] [address] [address] Johnny Johnson Glucose [Mass/Vol] 101 mg/dL Normal 74-106 [facility] Comment on above: Performed By: #### R SPLUS #### [facility] [address] [address] [address] Johnny Johnson Potassium [Moles/Vol] 3.8 mmol/L Normal 3.4-5.0 [facility] Comment on above: Performed By: #### R SPLUS #### [facility] [address] [address] [address] Johnny Johnson Sodium [Moles/Vol] 139 mmol/L Normal 137-145 [facility] Comment on above: Performed By: #### R SPLUS #### [facility] [address] [address] [address] Johnny Johnson Urea nitrogen [Mass/Vol] 9.0 mg/dL Normal 7.0-18.0 [facility] Comment on above: Performed By: #### R SPLUS #### [facility] [address] [address] [address] Johnny Johnson Urea nitrogen/Creatinine [Mass ratio] 14.5 mg/mg Normal [facility] Comment on above: Performed By: #### R SPLUS #### [facility] Laboratory [address] [place] [address] Dr. Johnny Johnson XR CHEST 2 Von 07-31-2021 XR CHEST 2 V EXAMINATION: XR CHES T 2 V HISTORY: Chest pain COMPARISON: No relevant comparison available. FINDINGS: LUNGS: No significant pulmonary parenchymal abnormalities. VASCULATURE: No increased pulmonary vasculature. PLEURA: No pneumothorax, effusion, or pleural thickening. CARDIAC: No cardiomegaly or cardiac silhouette abnormality. MEDIASTINUM: No visible mass or adenopathy. BONES: No fracture or visible bone lesion. OTHER: Negative. IMPRESSION: 1. No acute cardiopulmonary process. Electronically authenticated by: MELINDA MONTES Date: 2021-07-31 14:00 Normal [facility] RESPIRATORY PANEL PLUSon Adenovirus Not detected Normal NOT DETECTED The [facility] Comment on above: Performed By: #### R SPLUS #### [facility] [address] [place] [address] Dr. Johnny Hollingsworth. Parapertusis Not detected Normal NOT DETECTED [facility] Comment on above: Performed By: #### R SPLUS #### [facility] [address] [place] [address] Dr. Johnny Hollingsworth. Pertussis Not detected Normal NOT DETECTED [facility] Comment on above: Performed By: #### R SPLUS #### [facility] [address] [place] [address] Dr. Johnny Johnson Chlamydia Pneumoniae Not detected Normal NOT DETECTED [facility] Comment on above: Performed By: #### R SPLUS #### [facility] [address] [place] [address] Dr. Johnny Johnson Coronavirus 229E Not detected Normal NOT DETECTED [facility] Comment on above: Performed By: #### R SPLUS #### [facility] [address] [place] [address] Dr. Johnny Johnson Coronavirus HKU1 Not detected Normal NOT DETECTED [facility] Comment on above: Performed By: #### R SPLUS #### [facility] [address] [place] [address] Dr. Johnny Johnson Coronavirus NL63 Not detected Normal NOT DETECTED [facility] Comment on above: Performed By: #### R SPLUS #### [facility] [address] [place] [address] Dr. Johnny Johnson Coronavirus OC43 Not detected Normal NOT DETECTED [facility] Comment on above: Performed By: #### R SPLUS #### [facility] [address] [address] [address] Johnny Johnson Influenza A H1 2009 Not detected Normal NOT DETECTED [facility] Comment on above: Performed By: #### R SPLUS #### [facility] [address] [address] [address] Johnny Johnson Influenza A H3 Not detected Normal NOT DETECTED [facility] Comment on above: Performed By: #### R SPLUS #### [facility] [address] [address] [address] Johnny Johnson Influenza B Not detected Normal NOT DETECTED [facility] Comment on above: Performed By: #### R SPLUS #### [facility] [address] [address] [address] Johnny Johnson Metapneumovirus Not detected Normal NOT DETECTED [facility] Comment on above: Performed By: #### R SPLUS #### [facility] [address] [place] [address] Dr. Johnny Johnson Mycoplas. Pneumoniae Not detected Normal NOT DETECTED [facility] Comment on above: Performed By: #### R SPLUS #### [facility] [address] [address] [address] Johnny Johnson Parainfluenza 1 Not detected Normal NOT DETECTED [facility] Comment on above: Performed By: #### R SPLUS #### [facility] [address] [place] [address] Dr. Johnny Johnson Parainfluenza 2 Not detected Normal NOT DETECTED [facility] Comment on above: Performed By: #### R SPLUS #### [facility] [address] [address] [address] Johnny Johnson Parainfluenza 3 Not detected Normal NOT DETECTED [facility] Comment on above: Performed By: #### R SPLUS #### [facility] [address] [place] [address] Dr. Johnny Johnson Parainfluenza 4 Not detected Normal NOT DETECTED [facility] Comment on above: Performed By: #### R SPLUS #### [facility] [address] [address] [address] Johnny Johnson Rhino/Enterovirus Not detected Normal NOT DETECTED [facility] Comment on above: Performed By: #### R SPLUS #### [facility] [address] [place] [address] Dr. Johnny Johnson RP2 Header 1 RESPIRATORY PANEL: VIRUSES Normal [facility] Comment on above: Performed By: #### R SPLUS #### [facility] [address] [place] [address] Dr. Johnny Johnson RP2 Header 2 RESPIRATORY PANEL: BACTERIA Normal [facility] Comment on above: Performed By: #### R SPLUS #### [facility] [address] [place] [address] Dr. Johnny Johnson RSV Not detected Normal NOT DETECTED The [facility] Comment on above: Performed By: #### R SPLUS #### [facility] [address] [place] [address] Dr. Johnny Johnson SARS-CoV-2 (COVID-19) RNA ANATOLY+probe Ql (Unsp spec) Detected Critically abnormal NOT DETECTED [facility] Comment on above: Performed By: #### R SPLUS #### [facility] [address] [place] [address] Dr. Johnny Johnson Cult,Urine,CCon 10-01-2017 Cult,Urine,CC Specimen Description .URINE Performed at [address] [place] [address] [phone] Special Requests NOT REPORTEDCulture NO GROWTH Performed at [address] [id number] [phone] Report Status FINAL 10/01/[address] [facility] Comment on above: Performed By: #### P RENAT ####[address] [phone] [place] [address] Discharge Summaryon 09-01-19 18 HIM IP Note OR Network Security Officer Normal [facility] Plan of Careon 09-01-2017 HIM IP Note OR Network Security Officer Normal [facility] HIM IP Note OR Network Security Officer Normal [facility] Progress Noteon 09-01-2017 HIM IP Note OR Network Security Officer Normal [facility] Labor and Delivery Noteon HIM IP Note OR Network Security Officer Normal [facility] Plan of Careon 08-31-2017 HIM IP Note OR Network Security Officer Normal [facility] Progress Noteon 08-31-2017 HIM IP Note OR Network Security Officer Normal [facility] HIM IP Note OR Network Security Officer Normal [facility] HIM IP Note OR Network Security Officer Normal [facility] HIM IP Note OR Network Security Officer Normal [facility] HIM IP Note OR Network Security Officer Normal [facility] RhIg Workup (RhoGam)on 08-31 RhIg Workup (RhoGam) Blood Component Type MANUFACTURED PRODUCT Units Ordered 0001 ABO/Rh(D) A NEGATIVE Antibody Screen NEGATIVE History Check ANEGATIVE Rhig Eligibility OK TO TRANSFUSE Brittney NEGATIVE Du Antigen NOT TESTED Unit Number [id number] Blood Component Type RHIG Unit Division 00 Status of Unit TRANSFUSED Transfusion Status OK TO TRANSFUSEPerformed at [address], [place] [id number] [phone] Normal [facility] Comment on above: Performed By: #### H IVCMB ####[address] [id number] CBC with Diffon 2017 Abs. Basophil 0.00 k/uL Normal 0.0-0.2 [facility] Comment on above: Result Comment: Perf ormed at [address], [place] [id number] [phone] Performed By: #### C PDAU ####[address] [place] [address] Abs.Neutrophil (Seg) 8.10 k/uL High 1.8-7.[address] [facility] Comment on above: Performed By: #### C PDAU ####[address] [place] [address] Basophils/100 WBC Auto (Bld) 0 % Normal 0-[address] [facility] Comment on above: Performed By: #### C PDAU ####[address] [place] [address] Eosinophils 0.10 10*3/uL Normal 0.0-0.4 [facility] Comment on above: Performed By: #### C PDAU ####[address] [place] [address] Eosinophils/100 leukocytes 1 % Normal 0-[address] [facility] Comment on above: Performed By: #### C PDAU ####[address] [place] [address] Erythrocyte distribution width Auto Ratio (RBC) 14.5 % Normal 12.1-15.[address] [facility] Comment on above: Performed By: #### C PDAU ####[address] [place] [address] Erythrocytes (RBC) 4.70 10*6/uL Normal 4.0-5.2 [facility] Comment on above: Performed By: #### C PDAU ####[address] [place] [address] Hematocrit (HCT) 40.9 % Normal 36-46 [facility] Comment on above: Performed By: #### C PDAU ####[address] [place] [address] Hemoglobin mass conc (Bld) 13.6 g/dL Normal 12.0-16.[address] [facility] Comment on above: Performed By: #### C PDAU ####[address] [place] [address] Lymphocytes 1.70 10*3/uL Normal 1.0-4.8 [facility] Comment on above: Performed By: #### C PDAU ####[address] [place] [address] Lymphocytes/100 leukocytes 17 % Low 24-[address] [facility] Comment on above: Performed By: #### C PDAU ####[address] [place] [address] MCH 28.8 pg Normal 26-[address] [facility] Comment on above: Performed By: #### C PDAU ####[address] [place] [address] MCHC mass conc (RBC) 33.2 g/dL Normal 31-[address] [facility] Comment on above: Performed By: #### C PDAU ####[address] [place] [address] MCV 87.0 fL Normal 80-[address] [facility] Comment on above: Performed By: #### C PDAU ####[address] [place] [address] Monocytes 0.50 10*3/uL Normal 0.0-1.[address] [facility] Comment on above: Performed By: #### C PDAU ####[address] [place] [address] Monocytes/100 leukocytes 5 % Normal 0-[address] [facility] Comment on above: Performed By: #### C PDAU ####[address] [place] [address] Neutrophil (Seg) 77 % High 36-66 [facility] Comment on above: Performed By: #### C PDAU ####[address] [place] [address] Platelet mean volume (PMV) 10.5 fL Normal 6.0-12.[address] [facility] Comment on above: Performed By: #### C PDAU ####[address] [place] [address] Platelets 169 10*3/uL Normal 140-[address] [facility] Comment on above: Performed By: #### C PDAU ####[address] [place] [address] WBC (Leukocytes) 10.4 10*3/uL Normal 3.5-11.[address] [facility] Comment on above: Performed By: #### C PDAU ####[address] [place] [address] Auto Diff Performed NOT REPORTED Normal [facility] Comment on above: Performed By: #### C PDAU ####[address] [place] [address] Erythrocyte morphology NOT REPORTED Normal [facility] Comment on above: Performed By: #### C PDAU ####[address] [place] [address] Erythrocytes (RBC) NOT REPORTED Normal [facility] Comment on above: Performed By: #### C PDAU ####[address] [place] [address] Granulocytes/100 WBC (Bld) NOT REPORTED Normal 0.00-0.[address] [facility] Comment on above: Performed By: #### C PDAU ####[address] [place] [address] Immature granulocytes #/vol (Bld) NOT REPORTED Normal [address] [facility] Comment on above: Performed By: #### C PDAU ####[address] [place] [address] Platelets NOT REPORTED Normal [facility] Comment on above: Performed By: #### C PDAU ####[address] [place] [address] WBC Morphology NOT REPORTED Normal [facility] Comment on above: Performed By: #### C PDAU ####[address] [place] [address] Drug Scr, Abuse, Uron 2017 Amphetamine(s),Ur Negative Normal NEG [facility] Comment on above: Performed By: #### C PDAU ####[address] [place] [address] Barbiturate(s),Ur Negative Normal NEG [facility] Comment on above: Performed By: #### C PDAU ####[address] [place] [address] Base excess Negative Normal NEG [facility] Comment on above: Performed By: #### C PDAU ####[address] [place] [address] Benzodiazepine(s) Negative Normal NEG [facility] Comment on above: Performed By: #### C PDAU ####[address] [place] [address] Buprenorphrine, Ur Negative Normal NEG [facility] Comment on above: Result Comment: Perf ormed at [address] [place] [address] Performed By: #### C PDAU ####[address] [place] [address] Cannabinoid(s),Ur Negative Normal [facility] Comment on above: Performed By: #### C PDAU ####[address] [place] [address] Methamphetamine, Ur Negative Normal NEG [facility] Comment on above: Performed By: #### C PDAU ####[address] [place] [address] Opiate(s), Ur Negative Normal NEG [facility] Comment on above: Performed By: #### C PDAU ####[address] [place] [address] Oxycodone, Urine Negative Normal NEG [facility] Comment on above: Performed By: #### C PDAU ####[address] [place] [address] Phencyclidine, Ur Negative Normal NEG [facility] Comment on above: Performed By: #### C PDAU ####[address] [place] [address] Propoxyphene,Urine Negative Normal NEG [facility] Comment on above: Performed By: #### C PDAU ####[address] [place] [address] Urine, methadone presence Negative Normal NEG [facility] Comment on above: Performed By: #### C PDAU ####[address] [place] [address] Urine, tricyclic antidepressants Negative Normal NEG [facility] Comment on above: Result Comment: Drug screen results are to be used for medical purposes only. All positive results are unconfirmed. Testing for employment or legal uses should be sent to a reference laboratory for confirmation. Performed By: #### C PDAU ####[address] [place] [address] Interpretive Info NOT REPORTED Normal [facility] Comment on above: Performed By: #### C PDAU ####[address] [place] [address] MDMA, Urine NOT REPORTED Normal NEG [facility] Comment on above: Performed By: #### C PDAU ####[address] [place] [address] History and Physicalon 08-30 HIM IP Note OR Network Security Officer Normal [facility] Progress Noteon 2017 HIM IP Note OR Network Security Officer Normal [facility] HIM IP Note OR Network Security Officer Normal [facility] HIM IP Note OR Network Security Officer [facility] Urinalysis, Routineon 2017 Acetaminophen mass conc Negative Normal NEG [facility] Comment on above: Performed By: #### C PDAU ####[address] [place] [address] Bilirubin (direct) Negative Normal NEG [facility] Comment on above: Performed By: #### C PDAU ####[address] [place] [address] Hemoglobin mass conc (Bld) 2+ Abnormal NEG [facility] Comment on above: Performed By: #### C PDAU ####[address] [place] [address] Nitrite,Ur Negative Normal NEG [facility] Comment on above: Performed By: #### C PDAU ####[address] [place] [address] Turbidity CLEAR Normal CLEAR [facility] Comment on above: Performed By: #### C PDAU ####[address] [place] [address] Urine, color YELLOW Normal YEL [facility] Comment on above: Performed By: #### C PDAU ####[address] [place] [address] Urine, glucose presence Negative Normal NEG [facility] Comment on above: Performed By: #### C PDAU ####[address] [place] [address] Urine, leukocyte esterase presence Negative Normal NEG [facility] Comment on above: Result Comment: Perf ormed at [facility] [address] [place] [address] Performed By: #### C PDAU ####[address] [place] [address] Urine, pH 6.5 [pH] Normal 5.0-9.[address] [facility] Comment on above: Performed By: #### C PDAU ####[address] [place] [address] Urine, protein presence Negative Normal NEG [facility] Comment on above: Performed By: #### C PDAU ####[address] [place] [address] Urine, specific gravity 1.010 Normal 1.010-1.[address] [facility] Comment on above: Performed By: #### C PDAU ####[address] [place] [address] Urobilinogen,Ur Normal Normal NORM [facility] Comment on above: Performed By: #### C PDAU ####[address] [place] [address] Comment NOT REPORTED Normal [facility] Comment on above: Performed By: #### C PDAU ####[address] [place] [address] Urinalysis,Microon 8 ----- Normal [facility] Comment on above: Performed By: #### C PDAU ####[address] [place] [address] Urine WBC's 0 TO 2 Normal 0-[address] [facility] Comment on above: Performed By: #### C PDAU ####[address] [place] [address] Urine, epithelial cells in sediment 0 TO 2 Normal 0-[address] [facility] Comment on above: Result Comment: Perf ormed at [address] [place] [address] Performed By: #### C PDAU ####[address] [place] [address] Urine, erythrocytes 0 TO 2 Normal 0-[address] [facility] Comment on above: Performed By: #### C PDAU ####[address] [place] [address] Epithelial, Renal NOT REPORTED Normal [address] [facility] Comment on above: Performed By: #### C PDAU ####[address] [place] [address] Mucus Strands NOT REPORTED Normal [facility] Comment on above: Performed By: #### C PDAU ####[address] [place] [address] Other Observations NOT REPORTED Normal NREQ [facility] Comment on above: Performed By: #### C PDAU ####[address] [place] [address] Trichomonas NOT REPORTED Normal NONE [facility] Comment on above: Performed By: #### C PDAU ####[address] [place] [address] Urine, amorphous sediment presence in sediment NOT REPORTED Normal [facility] Comment on above: Performed By: #### C PDAU ####[address] [place] [address] Urine, bacteria in sediment NOT REPORTED Normal NONE [facility] Comment on above: Performed By: #### C PDAU ####[address] [place] [address] Urine, casts in sediment NOT REPORTED Normal [facility] Comment on above: Performed By: #### C PDAU ####[address] [place] [address] Urine, crystals in sediment NOT REPORTED Normal [facility] Comment on above: Performed By: #### C PDAU ####[address] [place] [address] Urine, yeast presence in sediment NOT REPORTED Normal [facility] Comment on above: Performed By: #### C PDAU ####[address] [place] [address] Rule Out Grp.B Strepon 08-14 Rule Out Grp.B Strep Specimen Description .Vag/Rectal Performed at [address] [place] [address] Special Requests NOT REPORTEDCulture NEGATIVE FOR GROUP B STREPTOCOCCI Performed at [address] [place], [place] [id number] [phone] Report Status FINAL 08/14/2017 [facility] Comment on above: Performed By: #### R OGBS ####[address] [phone] [place] [address] Progress Noteon 08-11-2017 HIM IP Note OR Network Security Officer Normal [facility] Glucose Richard Scr 50gon 2016 Glucose mass conc 128 mg/dL Normal 70-135 [facility] Comment on above: Result Comment: Perf ormed at [address] [place] [address] Performed By: #### H GB, GLUSC ####[address] [place] [address] Glu Administered via Glucola Normal [facility] Comment on above: Performed By: #### H GB, GLUSC ####[address] [place] [address] Hemoglobinon 06-10-2017 Hemoglobin mass conc (Bld) 12.6 g/dL Normal 12.0-16.[address] [facility] Comment on above: Result Comment: Perf ormed at [address] [place], [place] [id number] [phone] Performed By: #### H GB, GLUSC ####[address] [place] [address] RhIg Workup (RhoGam)on 06-10 RhIg Workup (RhoGam) Blood Component Type MANUFACTURED PRODUCT Units Ordered 1 ABO/Rh(D) A NEGATIVE Antibody Screen NEGATIVE History Check ANEGATIVE Unit Number [id number] Blood Component Type RHIG Unit Division 00 Status of Unit TRANSFUSED Transfusion Status OK TO TRANSFUSEPerformed at [address] [place] [address] [facility] Comment on above: Performed By: #### T RHIGW ####[address] [place] [address] Chlamydia/GC DNA, Uron 02-26 Chlamydia Probe, Ur Negative Normal NEG [facility] Comment on above: Result Comment: CHLA MYDIA TRACHOMATIS DNA not detected by nucleic acid amplification. Performed By: #### U CGP ####[address] [address] Gonorrhea Probe, Ur Negative Normal NEG [facility] Comment on above: Result Comment: NEIS SERIA GONORRHOEAE DNA not detected by nucleic acid amplification.Performed at [address] [address] Performed By: #### U CGP ####[address] [address] Cult,Urine,CCon 01-31-2017 Cult,Urine,CC Specimen Description .URINE Performed at [address] [place] [address] Special Requests CCMS Performed at [address] [place] [address] Culture NO SIGNIFICANT GROWTH Performed at [address] [address] Report Status FINAL 01/30/[address] [facility] Comment on above: Performed By: #### C CHALINO ####[address] [phone] [place] [address] HIV Ag/Abon 01-30-2017 HIV Ag/Ab NONREACTIVE Normal NR [facility] Comment on above: Result Comment: No l aboratory evidence of HIV infection. If acute HIV infection is suspected, consider testing for HIV-1 RNA.This is an FDA approved immunoassay that detects HIV-1 and HIV-2 antibodies and HIV-1 p24 antigen to screen for infection with HIV-1 or HIV-2.Performed at [address] [address] Performed By: #### H IVCMB ####[address] [address] Profileon 7 T.pallidum Ab Screen NONREACTIVE Normal NR [facility] Comment on above: Result Comment: T. p allidum antibodies are not detected.There is no serological evidence of infection with T. pallidum (early primary syphilis cannot be excluded). Retest in 2-4 weeks if syphilis is clinically suspect.Performed at [address] [address] Performed By: #### P RENAT ####[address] [phone] [address] [place] [place] [id number] Hep B Surf Ag NONREACTIVE Normal NR [facility] Comment on above: Result Comment: Perf ormed at [address] [address] Performed By: #### P RENAT ####[address] [phone] [place] [address] Rubella Ab, IgG 213.4 IU/mL Normal [facility] Comment on above: Result Comment: REFE RENCE RANGE:<5.0 NON-REACTIVE (non- immune)5.0 TO 9.9 EQUIVOCAL>=10.0 REACTIVE (immune)NOTE: NEW REFERENCE RANGEPerformed at [address] [address] Performed By: #### P RENAT ####[address] [phone] [place] [address] Profileon 7 Abs. Basophil 0.00 k/uL Normal 0.0-0.2 [facility] Comment on above: Result Comment: Perf ormed at [address] [place] [address] Performed By: #### P RENAT ####[address] [phone] [place] [address] Abs.Neutrophil (Seg) 5.90 k/uL Normal 1.8-7.[address] [facility] Comment on above: Result Comment: Perf ormed at [address] [place] [address] Performed By: #### P RENAT ####[address] [phone] [place] [address] Basophils/100 WBC Auto (Bld) 0 % Normal [facility] Comment on above: Result Comment: Perf ormed at [address] [place] [address] Performed By: #### P RENAT ####[address] [phone] [place] [address] Eosinophils 0.10 10*3/uL Normal 0.0-0.4 [facility] Comment on above: Result Comment: Perf ormed at [address] [place] [address] Performed By: #### P RENAT ####[address] [phone] [place] [address] Eosinophils/100 leukocytes 1 % Normal [facility] Comment on above: Result Comment: Perf ormed at [address] [place] [address] Performed By: #### P RENAT ####[address] [phone] [place] [address] Erythrocyte distribution width Auto Ratio (RBC) 13.4 % Normal 12.1-15.[address] [facility] Comment on above: Result Comment: Perf ormed at [address] [place] [address] Performed By: #### P RENAT ####[address] [phone] [place] [address] Erythrocytes (RBC) 4.78 10*6/uL Normal 4.0-5.2 [facility] Comment on above: Result Comment: Perf ormed at [address] [place] [address] Performed By: #### P RENAT ####[address] [phone] [place] [address] Hematocrit (HCT) 42.6 % Normal 36-46 [facility] Comment on above: Result Comment: Perf ormed at [address] [place] [address] Performed By: #### P RENAT ####[address] [phone] [place] [address] Hemoglobin mass conc (Bld) 14.2 g/dL Normal 12.0-16.[address] [facility] Comment on above: Result Comment: Perf ormed at [address] [place] [address] Performed By: #### P RENAT ####[address] [place] [phone] [place] [address] Lymphocytes 1.90 10*3/uL Normal 1.0-4.8 [facility] Comment on above: Result Comment: Perf ormed at [address] [place] [address] Performed By: #### P RENAT ####[address] [phone] [place] [address] Lymphocytes/100 leukocytes 22 % Normal [facility] Comment on above: Result Comment: Perf ormed at [address] [place] [address] Performed By: #### P RENAT ####[address] [phone] [place] [address] MCH 29.6 pg Normal 26-[address] [facility] [facility] Comment on above: Result Comment: Perf ormed at [address] [place] [address] Performed By: #### P RENAT ####[address] [phone] [place] [address] MCHC mass conc (RBC) 33.3 g/dL Normal 31-[address] [facility] Comment on above: Result Comment: Perf ormed at [address] [place] [address] Performed By: #### P RENAT ####[address] [phone] [place] [address] MCV 89.1 fL Normal 80-[address] [facility] Comment on above: Result Comment: Perf ormed at [address] [place] [address] Performed By: #### P RENAT ####[address] [phone] [place] [address] Monocytes 0.40 10*3/uL Normal 0.0-1.[address] [facility] Comment on above: Result Comment: Perf ormed at [address] [place] [address] Performed By: #### P RENAT ####[address] [phone] [place] [address] Monocytes/100 leukocytes 5 % Normal [facility] Comment on above: Result Comment: Perf ormed at [address] [place] [address] Performed By: #### P RENAT ####[address] [phone] [place] [address] Neutrophil (Seg) 72 % Normal [facility] Comment on above: Result Comment: Perf ormed at [address] [place] [address] Performed By: #### P RENAT ####[address] [phone] [place] [address] , [place] [address] Platelets 206 10*3/uL Normal 140-[address] [facility] Comment on above: Result Comment: Perf ormed at [address] [place] [address] Performed By: #### P RENAT ####[address] [phone] [place] [address] WBC (Leukocytes) 8.4 10*3/uL Normal 3.5-11.0 [facility] Comment on above: Result Comment: Perf ormed at [address] [place] [address] Performed By: #### P RENAT ####[address] [phone] [place] [address] , [place] [address] Auto Diff Performed NOT REPORTED Normal [facility] Comment on above: Performed By: #### P RENAT ####[address] [phone] [place] [address] , [place] [address] Erythrocyte morphology NOT REPORTED Normal [facility] Comment on above: Performed By: #### P RENAT ####[facility] [address] [place] [phone] [place] [address] Platelet mean volume (PMV) NOT REPORTED Normal 6.0-12.[address] [facility] Comment on above: Performed By: #### P RENAT ####[address] [phone] [place] [address] Platelets NOT REPORTED Normal [facility] Comment on above: Performed By: #### P RENAT ####[address] [phone] [place] [address] WBC Morphology NOT REPORTED Normal [facility] Comment on above: Performed By: #### P RENAT ####[address] [phone] [place] [address] Type + Scrnon 01-29 Type + Scrn ABO/Rh(D) A NEGATIVE Antibody Screen NEGATIVE Performed at [address] [place] [address] [facility] Comment on above: Performed By: #### P RTYS ####[address] [place] [address] Toxicology Scree, Urineon Amphetamine(s),Ur Negative Normal NEG [facility] Comment on above: Performed By: #### C PDAU ####[address] [place] [address] Barbiturate(s),Ur Negative Normal NEG [facility] Comment on above: Performed By: #### C PDAU ####[address] [place] [address] Base excess Negative Normal NEG [facility] Comment on above: Performed By: #### C PDAU ####[address] [place] [address] Benzodiazepine(s) Negative Normal NEG [facility] Comment on above: Performed By: #### C PDAU ####[address] [place] [address] Buprenorphrine, Ur Negative Normal NEG [facility] Comment on above: Result Comment: Perf ormed at [facility] of [address] [place] [address] Performed By: #### C PDAU ####[address] [place] [address] Cannabinoid(s),Ur Negative Normal NEG [facility] Comment on above: Performed By: #### C PDAU ####[address] [place] [address] Methamphetamine, Ur Negative Normal NEG [facility] Comment on above: Performed By: #### C PDAU ####[address] [place] [address] Opiate(s), Ur Negative Normal NEG [facility] Comment on above: Performed By: #### C PDAU ####[address] [place] [address] Oxycodone, Urine Negative Normal NEG [facility] Comment on above: Performed By: #### C PDAU ####[address] [place] [address] Phencyclidine, Ur Negative Normal NEG [facility] Comment on above: Performed By: #### C PDAU ####[address] [place] [address] Propoxyphene,Urine Negative Normal NEG [facility] Comment on above: Performed By: #### C PDAU ####[address] [place] [address] Urine, methadone presence Negative Normal NEG [facility] Comment on above: Performed By: #### C PDAU ####[address] [place] [address] Urine, tricyclic antidepressants Negative Normal NEG [facility] Comment on above: Result Comment: Drug screen results are to be used for medical purposes only. All positive results are unconfirmed. Testing for employment or legal uses should be sent to a reference laboratory for confirmation. Performed By: #### C PDAU ####[address] [place] [address] Interpretive Info NOT REPORTED Normal [facility] Comment on above: Performed By: #### C PDAU ####[facility] [place] , [place] [address] MDMA, Urine NOT REPORTED Normal NEG [facility] Comment on above: Performed By: #### C PDAU ####[address] [place] [address] Vital Signs Date Time Vital Sign Value Performing Clinician Facility 11-20-2023 08:46-0400 Diastolic blood pressure 71 mm[Hg] II Ko Muro Work Phone: [facility] 11-20-2023 08:46-0400 Heart rate 69 /min II Koyuliana Muro Work Phone: [facility] 11-20-2023 08:46-0400 Respiratory rate 16 /min II Koyuliana Muro Work Phone: [facility] 11-20-2023 08:46-0400 SaO2% (BldA) [Mass fraction] 99 % II Ko Muro Work Phone: [facility] 11-20-2023 08:46-0400 Systolic blood pressure 116 mm[Hg] II Koyuliana Muro Work Phone: [facility] 11-20-2023 07:22-0400 Body height 165.1 cm II Ko Muro Work Phone: [facility] 11-20-2023 07:22-0400 Body weight 77.11 kg II Koyuliana Muro Work Phone: [facility] 10-20-2023 15:05-0400 Body height 165.1 cm [facility] 10-20-2023 15:05-0400 Body mass index (BMI) [Ratio] 28.3 kg/m2 [facility] 10-20-2023 15:05-0400 Body weight 77.11 kg [facility] 08-01-2022 18:10-0500 Body height 165.1 cm Zuleima Thacker Other [facility] Other 08-01-2022 18:10-0500 Body mass index (BMI) [Ratio] 28.29 kg/m2 Zuleima Kirstie Other [facility] Other 08-01-2022 18:10-0500 Body temperature 97.6 [degF] Zuleima Kirstie Other [facility] Other 08-01-2022 18:10-0500 Body weight 77.11 kg Zuleima Buttmond Other [facility] Other 08-01-2022 18:10-0500 Diastolic blood pressure 79 mm[Hg] Zuleima Kirstie Other [facility] Other 08-01-2022 18:10-0500 Respiratory rate 18 /min Zuleima Kirstie Other [facility] Other 08-01-2022 18:10-0500 SaO2% (BldA) [Mass fraction] 99 % Zuleima Kirstie Other [facility] Other 08-01-2022 18:10-0500 Systolic blood pressure 130 mm[Hg] Zuleima Kirstie Other [facility] Other Encounters Encounter Date Encounter Type Care Provider Facility Start: 02-09-2024 End: 02-09-2024 ambulatory ALLA RAM Not Available Start: 11-20-2023 Non-patient / Non-visit II Maurilio Muro Work Phone: [facility] Work Phone: Start: 11-20-2023 End: 11-20-2023 Admission to same day surgery center II Ko Muro Work Phone: [facility] Work Phone: Start: 11-20-2023 End: 11-20-2023 ambulatory II Ko Muro Work Phone: [facility] Work Phone: Start: 10-29-2023 End: 10-29-2023 Patient encounter procedure II Ko Muro Work Phone: [facility] [place] Work Phone: Start: 10-29-2023 End: 10-29-2023 ambulatory II Ko Muro Work Phone: [facility] Work Phone: Start: 10-20-2023 End: 10-20-2023 ambulatory [facility] Work Phone: Start: 10-20-2023 End: 10-20-2023 Patient encounter procedure [facility] Work Phone: Start: 08-26-2023 End: 08-26-2023 ambulatory KO MURO Not Available Start: 08-06-2023 End: 08-06-2023 ambulatory BLANCHE SHABAZZ Not Available Start: 08-01-2022 End: 08-01-2022 Patient encounter procedure II Ko Muro Work Phone: [facility] Work Phone: Start: 08-01-2022 End: 08-01-2022 ambulatory II Ko Muro Work Phone: [facility] Work Phone: Start: 08-01-2022 Office outpatient ne w 20 minutes Zuleima Thacker [facility] Start: 04-25-2022 End: 04-26-[address] NBA SCHERER Facility:[facility]1 Start: 04-22-[address] NBA SCHERER Facility :[facility]1 Start: 03-11-2022 End: 03-11-[address] KO MURO Facility:[facility] Start: 03-02-2022 Encounter for preprocedural laboratory examination DR NBA SCHERER [facility] Start: 02-28-2022 End: 02-28-[address] NBA SCHERER Facility:[facility]1 Start: 02-26-2022 End: 02-27-[address] NBA SCHERER Facility:[facility] Start: 02-26-2022 End: 02-27-2022 Encounter for preprocedural laboratory examination DR NBA SCHERER Facility:[facility]1 Start: 02-25-2022 Encounter for preprocedural cardiovascular examination DR NBA SCHERER [facility] Start: 02-20-2022 End: 02-21-[address] NBA SCHERER Facility:[facility]1 Start: 02-20-2022 End: 02-21-2022 Encounter for preprocedural cardiovascular examination DR NBA SCHERER Facility:[facility]1 Start: 11-15-2021 End: 11-16-[address] NBA SCHERER Facility:[facility] Start: 11-04-2021 End: 11-04-2021 ambulatory GUICHO CHRISTIANSEN Facility:[facility]1 Start: 07-31-2021 End: 08-01-[address] ALLA RAM Facility:[facility]1 Start: 07-16-2021 End: 07-16-2021 ambulatory NICOL BRITO Facility:[facility]1 Start: 09-30-2017 End: 10-01-2017 Ambulatory MANDI E POOL [facility] Start: 2017 End: 09-01-2017 Evaluation and management of inpatient LANG ALEJANDRE [facility] Start: 08-10-2017 End: 08-11-2017 [facility] Start: 06-11-2017 End: 06-12-2017 [facility] Start: 06-10-2017 End: 06-11-2017 [facility] Start: 02-24-2017 End: 02-25-2017 Ambulatory MANDI E POOL [facility] Start: 01-29-2017 End: 01-30-2017 Ambulatory MANDI E POOL [facility] Procedures Date Procedure Procedure Detail Performing Clinician Start: 11-20-2023 Colonoscopy II Ko Muro Work Phone: Start: 10-29-2023 Computed tomography of abdomen and pelvis with contrast II Ko Muro Work Phone: Start: 08-01-2022 Plain X-ray of right wrist II Ko Muro Work Phone: Start: 09-30-2017 URINE CULTURE CLEAN CATCH MANDI POOL Start: 09-01-2017 DISCHARGE PATIENT KATHL EEN POOL Start: 08-31-2017 RHOGAM KATHL EEN POOL Start: 08-31-2017 ADVANCE DIET RICHARDE RATED (NURSING COMMUNICATION) MANDI POOL Start: 08-31-2017 AMBULATE PATIENT KATHLE EN POOL Start: 08-31-2017 ASSESS MANDI P OOL Start: 08-31-2017 DIET GENERAL MANDI P OOL Start: 08-31-2017 ICE TO AFFECTED AREA KA ALLISONLEEN POOL Start: 08-31-2017 NOTIFY PHYSICIAN (SPECIFY) MANDI POOL Start: 08-31-2017 SALINE LOCK IV MANDI POOL Start: 08-31-2017 STRAIGHT CATH MANDI POOL Start: 08-31-2017 VITAL SIGNS MANDI P OOL Start: 08-31-2017 FULL CODE MANDI P OOL Start: 08-31-2017 TRANSFER PATIENT KATHLE EN POOL Start: 2017 CBC WITH AUTO DIFFERENTIAL MANDI POOL Start: 2017 PATIENT STATUS (DIRECT) MANDI POOL Start: 2017 nonstress test KA THLEEN POOL Start: 2017 Microscopic urinalysis MANDI POOL Start: 2017 Urinalysis MANDI P OOL Start: 2017 URINE DRUG SCREEN KATHL EEN POOL Start: 08-10-2017 STREP B SCREEN, VAGI NAL / RECTAL MANDI POOL Start: 06-10-2017 Blood count hemoglobin MANDI POOL Start: 06-10-2017 GLUCOSE TOLERANCE, 1 HOUR MANDI POOL Start: 06-10-2017 RHOGAM ANTEPARTUM KATHL EEN POOL Start: 02-24-2017 C.TRACHOMATIS N.GONORRHOEAE DNA, URINE MANDI POOL Start: 01-29-2017 HIV SCREEN MANDI P OOL Start: 01-29-2017 TYPE AND SCREEN MANDI POOL Start: 01-29-2017 URINE CULTURE CLEAN CATCH MANDI POOL Start: 01-29-2017 URINE DRUG SCREEN, COMPREHENSIVE MANDI POOL Start: 01-29-2017 PROFILE I JAVON BHARDWAJ POOL H/O: tubal ligation History of b ilateral tubal ligation Plan of Treatment Date Care Activity Detail Author Start: 11-20-[address] [facility] [address] Abdomen and Pelvi s W contrast IV [facility] Patient Education Hemorrhoids (D C) Colon Polypectomy (DC) [facility] Work Phone: Payers Date Payer Category Payer Self-pay [id number] 2023 Unknown [id number] 2022 Medicaid [id number] 2017 Private Health Insurance [id number] 2015 Unknown [id number] 1982 Unknown [id number] 1982 Unknown [id number] .[id number] 1982 Unknown [id number] [id number] 1982 Unknown [id number] .[id number] 1982 Unknown [id number] 2.1.617751.3.579.2.59 1982 Unknown [id number] 1982 Unknown [id number] 1982 Unknown [id number] 2.16.840.1.510292.3.579.2.593 1982 Unknown [id number] 2.16.840.1.268435.3.579.2.593 1982 Unknown [id number] 2.16.840.1.662868.3.579.2.593 1982 Unknown [id number] 2.16.840.1.147717.3.579.2.125 9 1982 Unknown [id number] 2.16.840.1.142163.3.579.2.125 9 1982 Unknown [id number] 2.16.840.1.303873.3.579.2.125 9 1959 Self-pay [id number] 1959 Unknown [id number] 1959 Unknown [id number] Medicaid [place] Advantage [id number] Unknown [id number] [id number] Unknown [id number] [id number] Social History Date Type Detail Facility Start: 07-08-2018 End: 11-20-2023 Tobacco smoking status RIIS Smoker (finding) [facility] Start: 1980 Sex Assigned At Female F [facility] Sex Assigned At Sex Assigned At [facility] [place] Other Goals Date Patient Goal Desired Activity /State Procedure note 11-20-2023 Note Date & Type Note Facility 11-20-2023 Procedure note [facility] Evaluation note 08-01-2022 Note Date & Type Note Facility 08-01-2022 Evaluation note Encounter Date Diagnosis Assessment Notes Jul, Right wrist pain (ICD-10 - M25.531) Jul, Carpal tunnel syndrome, right (ICD-10 - G56.01) Carpal tunnel syndrome home care material was printed Drink plenty fluids, get plenty of rest. Wear the wrist splint is much as possible. Take ibuprofen as needed for pain. Follow-up with your family physician or an orthopedic physician if no improvement in 5 to 7 days. [facility] Other Clinical Note 02-28-2022 Note Date & Type Note Facility 02-28-2022 Note OPERATIVE NOTE OPERATION DATE: 02/28/2022 PROCEDURE: Yue endometrial ablation with hysteroscopy with bilateral laparoscopic salpingectomy. PREOPERATIVE DIAGNOSIS: Menorrhagia, dysmenorrhea, desires permanent sterilization, multiparity. POSTOPERATIVE DIAGNOSIS: Menorrhagia, dysmenorrhea, desires permanent sterilization, multiparity. ANESTHESIA: General. SURGEON: Nba Scherer D.O. CLINICAL TRANSFORMATION SPECIALIST: MO Graham URINE OUTPUT: Yellow and clear. SPECIMEN: Bilateral tubes. FINDINGS: Normal appearing ovary, uterus and tubes. Normal appearing uterine thickness. No gross evidence of polyps, fibroids or malignancy. PROCEDURE NOTE: The patient was taken back to the OR where she was prepped and draped in the normal sterile fashion after being placed in the dorsal lithotomy position, after being placed under general anesthesia without difficulty. a weighted speculum was then placed into the vagina. The anterior lip was grasped with a single tooth tenaculum. The patient was then sounded to approximately 8 cm. The patient was gently sounded using Hegar dilators and the hysteroscope was passed through the cervix into the uterus where both ostia were seen. No gross evidence of polyps, fibroids or malignancy. The cervical length was noted to be 4 cm. The Yue ablation apparatus was set to approximately 4 cm in length. This was placed in through the cervix and into the uterus. After the seal was tested, at that time the total ablation of 120 seconds was performed with the Yue without difficulty. All instruments were removed from the vagina. A wet sponge stick was placed into the patient's vagina. Attention was then turned to the patient's abdomen, where a scalpel was used to make a small infraumbilical incision. The S retractors were then used to dissect the underlying layers until the fascia could be seen. The fascia was then grasped with Bryant clamps and tented up. A knife was then used to make a small incision to the fascia. The muscle was identified, at that time two sutures of #0 Vicryl on a GI needle was then used and placed through the fascia. The peritoneum was then identified and entered bluntly. The 10-4 Jeaneth was then placed into the patient's abdomen. This was confirmed with direct visualization of the bowel, using the laparoscope. The patient's abdomen was then insufflated using approximately 4 liters of CO2 gas. Survey of the patient's abdomen demonstrated normal appearing ovaries, uterus and tubes. A second and third lateral ports, which was 7-8 in size and 5 mm in size, was then placed laterally after incision was made in the skin under direct visualization. The patient's tube on the patient's right side was identified. The tube was then tented up using a grasper. The LigaSure was used to transect and coagulate the mesosalpinx from the fimbriated end to the insertion at the uterus, the tube was amputated and removed in its entirety. Excellent hemostasis was noted. This was performed on the contralateral side as well. The lateral ports were then moved under direct visualization with excellent hemostasis. The abdomen was desufflated. All instruments were removed from the patient's abdomen. The fascia was closed using the #0 Vicryl on GI needle. The skin was closed using 4- 0 Vicryl subcuticularly. All instruments were removed from the patient's vagina as well. The patient was taken out of the dorsal lithotomy position and placed in the supine position and taken to recovery in stable condition. Sponge, lap and needle counts were correct x2. Omental adhesions were removed from the anterior abdominal wall using the LigaSure. ??? [facility] Evaluation note Note Date & Type Note Facility Evaluation note No assessment information availa [facility] Work Phone: Evaluation note Note Date & Type Note Facility Evaluation note Diagnosis Onset Date Alternating constipation and diarrhea acute Lower abdominal pain acute [facility] Work Phone: History and physical note Note Date & Type Note Facility History and physical note Note Date/Time November 20, 2023 7:46am [facility] [address] [place] [address] Gastroenterology H&P Signed Patient: Gordon Reyna MR#: [id number] : 1980 Acct:[id number] Age/Sex: 43 / F Adm Date: 4 Loc: Room: Type: [facility] Attending Dr: Marlin Eisenberg DO Copies to: DO Ko Noyola II, MD~ Date of Service: 11/20/2023 HISTORY & PHYSICAL: Patient's history with special attention to the cardiovascular, pulmonary systems and the current problem was reviewed with the patient immediately prior to the procedure. Present medications and doses reviewed in the EMR. Allergies and pertinent laboratory tests were also reviewedat this time in the EMR. The physical examination, as below, was then performed. Indication, assessment and HPI: 3-year-old female who presents for colonoscopy for irregular bowel movements alternating between diarrhea and constipation. No prior colonoscopy. Family history of GI malignancy? No PHYSICAL EXAMINATION General appearance: cooperative, NAD Skin: No jaundice, no rash or lesions Head: NCAT Eyes: Anicteric Neck: Supple Lungs: Normal respiratory effort, no use of accessory muscles Abdomen: Soft, nondistended Neuro: No focal deficits, Ox3. REVIEW OF SYSTEMS Constitutional: Denies malaise, fevers Cardiovascular: Denies chest pain, palpitations Respiratory: Denies shortness of breath, wheezing Gastrointestinal: As per HPI Genitourinary: Denies dysuria, polyuria Musculoskeletal: Denies joint swelling, joint stiffness Neurological: Denies confusion, numbness, tingling Endocrine: Denies fatigue Written informed consent obtained from the patient. Risks (including but not limited to perforation, infection, bloating, bleeding, need for emergent surgeryand loss of life), benefits and alternatives explained and questions answered. The patient verbalized understanding. Based on history patient is an appropriate candidate for the procedure. Marlin Eisenberg DO Documented By: Marlin Eisenberg DO 11/20/23 0745 Signed By: <Electronically signed by Marlin Eisenberg DO> 11/20/23 0746 [facility] Work Phone: History general Narrative - Reported Note Date & Type Note Facility History general Narrative - Reported Type Medical History mitral valve prolapse Medical History anxiety Medical History tachycardia Surgical History wisdom teeth Surgical History cyst removed from right arm [facility] Other Summary Purpose Family History No Family History Records Found Relationship Condition Age at Onset Recorded Date/T bruna Not Specified Diabetes mellitus Unknown Heart disease Unknown Hypertension Unknown Relationship Condition Age at Onset Recorded Date/T bruna grandparent Diabetes mellitus Unknown Not Specified Heart disease Unknown grandparent Hypertension Unknown Advance Directives No Advanced Directives Records Found Advance Directive Response Recorded Date/ Time Advance Directives No May 1:02pm Advance Directive Response Recorded Date/ Time Advance Directives No May 2:02pm Chief Complaint and Reason for Visit Chief Complaint REF BY DR. ZIGGY LOMELI IN BOWEL HABIT/PELVIC PAIN Reason for Visit Alternating constipa tion and diarrhea Lower abdominal pain Chief Complaint REF BY DR. ZIGGY LOMELI IN BOWEL HABIT/PELVIC PAIN R10.30 R19.8 Reason for Visit Alternating constipa tion and diarrhea Lower abdominal pain Chief Complaint REF BY DR. ZIGGY LOMELI IN BOWEL HABIT/PELVIC PAIN R10.30 R19.8 alternating diarrhea and constipation alternating diarrhea and constipation Reason for Visit Alternating constipa tion and diarrhea Lower abdominal pain Additional Source Comments INFORMATION SOURCE (unrecogn ized section and content) DATE CREATED AUTHOR 01/15/2018 [facility] DATE CREATED AUTHOR AUTHOR'S ORGANIZ ATION 07/03/2022 [facility] DATE CREATED AUTHOR AUTHOR'S ORGANIZ ATION 02/13/2024 [facility] EPIC DATE CREATED AUTHOR AUTHOR'S ORGANIZ ATION 02/14/2024 [facility] Care Teams (unrecognized sec tion and content) Team Status: Inactive Member Role Status Dates Ko Muro II MD Primary Care Provider Active HARLEY Mora Attending Provider Active Team Status: Active Member Role Status Dates Ko Muro II MD Primary Care Provider Active Team Status: Inactive Member Role Status Dates Ko Muro II MD Primary Care Provider Active Start: October 20, 2023 End: October 20, 2023 Vin Naranjo APRN Attending Provider Active Start: October 20, 2023 End: October 20, 2023 Team Status: Inactive Member Role Status Dates Ko Muro II MD Primary Care Provider Active Start: October 29, 2023 End: October 29, 2023 Vin Naranjo APRN Attending Provider Active Start: October 29, 2023 End: October 29, 2023 Team Status: Inactive Member Role Status Dates Ko Muro II MD Primary Care Provider Active Start: November 20, 2023 End: November 20, 2023 Marlin Eisenberg DO Attending Provider Active St art: November 20, 2023 End: November 20, 2023 Team Status: Active Member Role Status Dates Ko Muro II MD Primary Care Provider Active Start: November 20, 2023 Marlin Eisenberg DO Attending Provider, Other Provider Active Start: November 20, 2023 Goals (unrecognized section and content) Goals may be documented in a n alternate sectionNo InformationGoals may be documented in an alternate sectionGoals may be documented in an alternate section REASON FOR VISIT (unrecogniz ed section and content) RIGHT WRIST INJURY X2 WEEKS FOR RECORDS PERTAINING TO PATIENTS WHO ARE OR HAVE BEEN ENROLLED IN A CHEMICAL DEPENDENCY/SUBSTANCEABUSE PROGRAM, SOME INFORMATION MAY BE OMITTED. This clinical summary was aggregated from multiple sources. Caution should be exercised in using it in the provision of clinical care. This summary normalizes information from multiple sources, and as a consequence, information in this document may materially change the coding, format and clinical context of patient data. In addition, data may be omitted in some cases. CLINICAL DECISIONS SHOULD BE BASED ON THE PRIMARY CLINICAL RECORDS. [employer] provides no warranty or guarantee of the accuracy or completeness of information in this document.
== END 2024-05-05 19:25 | disposition home or self-care (01) ==
LOC: LAB 19:24
PROVIDERS: PCP Internal Medicine; Visit Provider Physician Assistant
DX: Z01.419 Encounter for gynecological examination (general) (routine) without abnormal findings (principal)
CPT/HCPCS: 87624; 88175

== ENCOUNTER 2024-05-24 14:36 | Outpatient (OUT) | payer BC, SELFPAY ==
--- NOTE | 2024-05-24 14:38 | MM_ITS ---
Patient Name: GORDON REYNA MR#: [id number] : 1980 Exam Date: 05/24/2024 Ordering Doctor: DR MARISELA FAUSTIN M.D. RADIOLOGY REPORT PROCEDURE: MM TOMOSYNTHESIS SCREENING BI COMPARISON: MG MAMM JENNI DIAG W CAD, 07/11/2019. MM TOMOSYNTHESIS SCREENING BI, 02/16/2023. INDICATIONS: Screening Calculator Name NCI Breast Cancer Risk Assessment Tool 5 Year Breast Cancer Risk 0.60% Lifetime Breast Cancer Risk 10.10% Personal Breast Cancer No Personal Ovarian Cancer No Treatments None Family Cancers None LOCATION: [facility] BREAST COMPOSITION: There are scattered areas of fibroglandular density. FINDINGS: DIAGNOSTIC CATEGORY 2--BENIGN FINDING. NO CHANGE FROM COMPARISON. Scattered benign-appearing calcifications are present. Scattered benign-appearing lymph nodes are present. RIGHT BREAST: No significant suspicious finding. LEFT BREAST: No significant suspicious finding. RECOMMENDATIONS: ROUTINE MAMMOGRAM AND CLINICAL EVALUATION IN 12 MONTHS. PLEASE NOTE: A NORMAL MAMMOGRAM DOES NOT EXCLUDE THE POSSIBILITY OF BREAST CANCER. A CLINICALLY SUSPICIOUS PALPABLE LUMP SHOULD BE BIOPSIED. Dictated by: Chai Jaimes MD on 06/07/2024 at 09:44 Approved by: Chai Jaimes MD on 06/07/2024 at 09:45
--- OUTSIDE RECORDS SUMMARY | 2024-05-24 14:41 | XMS_ITS | CCD ---
Author Organization [facility] Care Team Providers Care Clinical Trainer Name Role Phone POOL, MANDI E Unavailable [...] Unavailable GUICHO CHRISTIANSEN Attending Unavailable BHASKAR, DR CONNELL Primary Care Unavailable BHASKAR, DR CONNELL Primary Care Unavailable GÓMEZ, DR PARKER Admitting Unavailable GÓMEZ, DR PARKER Attending Unavailable ROSIE ABARCA Consulting Unavailable ZIGGY, DR WILLIAMSON Admitting Unavailable ZIGGY, DR WILLIAMSON Consulting Unavailable BHASKAR, DR CONNELL Primary Care Unavailable ZIGGY, DR WILLIAMSON Attending Unavailable ZIGGY, DR WILLIAMSON Admitting Unavailable ZIGGY, DR WILLIAMSON Consulting Unavailable BHASKAR, DR CONNELL Primary Care Unavailable ZIGGY, DR WILLIAMSON Attending Unavailable ZIGGY, DR WILLIAMSON Admitting Unavailable ZIGGY, DR WILLIAMSON Consulting Unavailable BHASKAR, DR CONNELL Primary Care Unavailable ZIGGY, DR WILLIAMSON Attending Unavailable LUCY CARRIZALES Consulting Unavailable MAKSIM RODRÍGUEZ Consulting Unavailable ZIGGY, DR WILLIAMSON Admitting Unavailable BHASKAR, DR CONNELL Primary Care Unavailable ZIGGY, DR WILLIAMSON Attending Unavailable ZIGGY, DR WILLIAMSON Admitting Unavailable ZIGGY, DR WILLIAMSON Consulting Unavailable BHASKAR, DR CONNELL Primary Care Unavailable ZIGGY, DR WILLIAMSON Attending Unavailable NICOL BRITO Attending Unavailable NICOL BRITO Admitting Unavailable NICOL BRITO Consulting Unavailable BHASKAR, DR CONNELL Primary Care Unavailable HEMKARENA, DR ELANA Gu Attending Unavailable HEMKARENA, DR ELANA Gu Admitting Unavailable BHASKAR, DR CONNELL Primary Care Unavailable JYOTI, DR MELINDA Teran Consulting Unavailable HEMKARENA, DR ELANA Gu Consulting Unavailable ZIGGY, DR WILLIAMSON Attending Unavailable ZIGGY, DR WILLIAMSON Admitting Unavailable BHASKAR, DR CONNELL Primary Care Unavailable [place], DR LISETTE Navarro Consulting Unavailable ZIGGY, DR WILLIAMSON Consulting Unavailable Muro, GEOVANY Connell Primary Care Provider HARLEY Thacker Attending Provider [phone] Zuleima Thacker Unavailable Bhaskar, GEOVANY Connell Primary Care Provider [phone] MICHAEL Naranjo Attending Provider LyDO Marlin Attending Provider Marlin Eisenberg Admitting Unavailable Marlin Eisenberg Attending Unavailable Ko Muro Primary [facility] [place] Unavailable Vin Naranjo Admitting Unavailable Vin Naranjo Attending Unavailable Ko Muro [facility] Unavailable Ko Muro MD Primary Care Provider Ko Muro MD Unavailable [phone] BLANCHE SHABAZZ Attending Unavailable KO MURO Attending Unavailable ELANA RAM Attending Unavailable JOSELYN ABARCA Attending Unavailable ELANA RAM Attending Unavailable Allergies Allergy Classification Reported Allergen(s) Allergy Type Date of Onset Reaction(s) Facility (6 sources) busPIRone Drug Allergy 2 Unknown [facility] Work Phone: (6 sources) varenicline Drug Allergy 3 [facility] Work Phone: (6 sources) Other Propensity to adverse reactions 2 Unknown [facility] Medications Current Medications Medication Drug Class(es) Dates Sig (Normalized) Sig (Original) acetaminophen 325 mg / HYDROcodone bitartrate 5 mg oral tablet (16 sources) Opioid Agonist Start: 04-11-2024 End: 06-15-2024 take 1 tablet by mouth every six hours for pain HYDROcodone-aceta minophen ([place]ancock) 5-325 MG tablet Indications: Spinal stenosis in cervical region Take 1 tablet by mouth every 6 (six) hours if needed for severe pain 120 tablet 05/16/2024 06/15/2024 Active Start: 07-08-2018 End: 07-15-2018 take 1 tablet by mouth every six hours Hydrocodone-Acetaminophen Discontinued 1 TAB PO Q6H 28 July 08, 2018 July 15, 2018 1:02am Start: 06-22-2018 Hydrocodone-Ac etaminophen Active 1 TAB PO As Directed June 22, 2018 1:00am ALPRAZolam 0.25 mg oral tablet (12 sources) Benzodiazepine Start: 04-11-2024 End: 06-15-2024 take 1 tablet by mouth once ALPRAZolam (Xanax) 0.25 MG tablet Indications: Generalized anxiety disorder (CMS/HCC) Take 1 tablet (0.25 mg) by mouth every 12 (twelve) hours if needed for anxiety 60 tablet 05/16/2024 06/15/2024 Active Start: 10-20-2023 take 1 tablet by bolivar th once daily at bedtime Alprazolam (Xanax) 0.25 mg tablet Active 0.25 MG PO Daily at bedtime October 20, 2023 12:00am Xanax Active cetirizine hydrochloride 10 mg oral tablet (6 sources) Histamine-1 Receptor Antagonist Start: 03-21-2024 take 1 tablet by mouth once daily cetirizine (ZyrTEC) 10 MG tablet Indications: Seasonal allergies TAKE 1 TABLET BY MOUTH DAILY at the same time each day 100 tablet 3 03/21/2024 Active loratadine 10 mg oral tablet (1 source) take 1 tablet by mouth once daily Loratadine 10 MG take 1 tablet by mouth once daily Oral for 30 Active 24 hr metFORMIN hydrochloride 500 mg extended release oral tablet (5 sources) Biguanide Start: 05-05-2024 End: 08-03-2024 take 1 tablet by mouth every twenty-four hours at mealtime metFORMIN XR (Glucophage-XR) 500 MG 24 hr tablet Indications: Encounter for weight management Take 1 tablet (500 mg) by mouth in the evening. Take with meals Do not crush, chew, or split. 90 tablet 1 05/05/2024 08/03/2024 Active 24 hr metoprolol succinate 50 mg extended release oral tablet (12 sources) beta-Adrenergic Davian Start: 12-09-2023 take 3 tablets by mouth once daily metoprolol succinate XL (Toprol-XL) 50 MG 24 hr tablet Indications: Supraventricular tachycardia (CMS/HCC) take 3 tablet by mouth once daily 180 tablet 3 12/09/2023 Active Start: 11-20-2023 take 50 mg by mouth once daily Metoprolol Succinate Active 50 MG PO Daily November 20, 2023 12:00am Start: 06-22-2018 End: 10-20-2023 take 50 mg by mouth every six hours Metoprolol Tartrate Discontinued 50 MG PO Q6H June 22, 2018 1:00am October 20, 2023 3:08pm Metoprolol Succi simba Active 12 hr orphenadrine citrate 100 mg extended release oral tablet (6 sources) Muscle Relaxant Start: 03-14-2024 take 1 tablet by mouth twice daily as needed for muscle spasms orphenadrine (Norflex) 100 MG 12 hr tablet Indications: Spinal stenosis in cervical region Take 1 tablet (100 mg) by mouth 2 (two) times a day as needed for muscle spasms Do not crush, chew, or split. 60 tablet 1 03/14/2024 Active Wrist Splint/Right XL - (1 source) Start: 08-01-2022 Wrist Splint/R ight XL - as directed Jul, Active zolpidem tartrate 10 mg oral tablet (10 sources) gamma-Aminobutyr ic Acid-ergic Agonist Start: 03-14-2024 zolpidem (Ambien) 10 MG tablet Indications: Primary insomnia Take 1 tablet (10 mg) by mouth as needed at bedtime for sleep 30 tablet 2 03/14/2024 Active Start: 10-20-2023 take 1 tablet by bolivar th once daily at bedtime Zolpidem (Ambien) 5 mg tablet Active 5 MG PO Daily at bedtime October 20, 2023 12:00am may repeat once if no response in 30-60 minutes Ambien Active Completed/Discontinued Medications Medication Drug Class(es) Dates Sig (Normalized) Sig (Original) adapalene 0.001 mg/mg topical gel (5 sources) Retinoid Start: 06-22-2018 End: 07-08-2018 Adapalene Discontinued 1 APPLIC TOPICAL Daily at bedtime June 22, 2018 1:00am July 08, 2018 8:35am Adapalene 0.1 % apply to affected area ON FACE at bedtime if needed External for 30 Active doxycycline hyclate 100 mg oral capsule (4 sources) Tetracycline-class Drug Start: 05-05-2024 End: 05-16-2024 doxycycline (Vibramycin) 100 MG capsule Indications: Cervicitis and endocervicitis Take 1 capsule (100 mg) by mouth in the morning and 1 capsule (100 mg) before bedtime. Do all this for 7 days. Take with at least 8 ounces (large glass) of water, do not lie down for 30 minutes after. 14 capsule 05/05/2024 05/16/2024 Discontinued (Therapy completed) fluconazole 150 mg oral tablet (4 sources) Azole Antifungal Start: 05-13-2024 End: 05-16-2024 fluconazole (Diflucan) 150 MG tablet Indications: Candidiasis Take 1 tablet (150 mg) by mouth Daily for 1 day, THEN 1 tablet (150 mg) Daily for 1 day. Take doses 3 days apart. 2 tablet 05/13/2024 05/16/2024 Discontinued (Therapy completed) ibuprofen 200 mg oral tablet (4 sources) Nonsteroidal Anti-inflammatory Drug Start: 06-22-2018 End: 10-20-2023 take 600 mg by mouth three times daily Ibuprofen Discontinued 600 MG PO Three times daily June 22, 2018 1:00am October 20, 2023 3:08pm naloxone hydrochloride 40 mg/ml nasal spray (3 sources) Opioid Antagonist Start: 07-14-2022 End: 05-05-2024 naloxone (Narcan) 4 mg/0.1 mL nasal spray Administer 4 mg into affected nostril(s) if needed. 07/14/2022 05/05/2024 Discontinued 24 hr nicotine 0.875 mg/hr transdermal system (3 sources) Cholinergic Nicotinic Agonist Start: 04-27-2023 End: 05-05-2024 apply 1 dose transdermal route every twenty-four hours nicotine (Nicoderm CQ) 21 MG/24HR patch Indications: Tobacco dependence Place 1 patch over 24 hours on the skin 1 (one) time each day at the same time. 42 patch 04/27/2023 05/05/2024 Discontinued sertraline 25 mg oral tablet (3 sources) Serotonin Reuptake Inhibitor Start: 10-20-2023 End: 11-20-2023 take 25 mg by mouth once daily Sertraline Discontinued 25 MG PO Daily October 20, 2023 12:00am November 20, 2023 7:22am Problems Active Problems Problem Classification Problem Date Documented Da te Episodic/Chronic Abdominal pain (9 sources) Lower abdominal pain; Translations: [Lower abdominal pain, unspecified] Onset: 4 10-20-2023 Episodic Administrative/social admission (2 sources) Patient encounter status; Translations: [Persons encountering health services in other specified circumstances] 05-05-2024 Episodic Anxiety disorders (20 sources) Anxiety disorder, unspecified; Translations: [Generalized anxiety disorder] Onset: 2 12-16-2022 Chronic Cardiac dysrhythmias (12 sources) Supraventricular tachycardia; Translations: [Supraventricular tachycardia] Onset: 3 12-24-2022 Chronic Esophageal disorders (1 source) Gastro-esophageal reflux disease without esophagitis; Translations: [GERD WITHOUT ESOPHAGITIS] Onset: 2 Chronic Genitourinary congenital anomalies (5 sources) Aplasia of body of uterus; Translations: [Agenesis and aplasia of uterus] Onset: 4 10-20-2023 Chronic Heart valve disorders (6 sources) Mitral valve prolapse; Translations: [Nonrheumatic mitral (valve) prolapse] Onset: 3 04-08-2023 Chronic Inflammatory diseases of female pelvic organs (2 sources) Cervicitis and endocervicitis; Translations: [Inflammatory disease of cervix uteri] 05-05-2024 Episodic Malaise and fatigue (6 sources) Fatigue; Translations: [Chronic fatigue, unspecified] Onset: 3 12-24-2022 Chronic Menstrual disorders (7 sources) Amenorrhea, unspecified; Translations: [Excessive and frequent menstruation with irregular cycle] Onset: Chronic Mood disorders (6 sources) Moderate major depression ; Translations: [Major depressive disorder, single episode, moderate] Onset: 3 12-24-2022 Chronic Neoplasms of unspecified nature or uncertain behavior (1 source) Neoplastic disease; Translations: [Neoplasm of unspecified behavior of bone, soft tissue, and skin] Episodic Nonspecific chest pain (12 sources) Chest pain, unspecified; Translations: [Chest pain] Onset: 2 Episodic Osteoarthritis (6 sources) Arthritis; Translations: [Unspecified osteoarthritis, unspecified site] Onset: 3 12-24-2022 Chronic Other ear and sense organ disorders (6 sources) Hearing loss; Translations: [Unspecified hearing loss, unspecified ear] Onset: 3 12-24-2022 Chronic Other female genital disorders (5 sources) Unspecified dyspareunia; Translations: [UNSPECIFIED DYSPAREUNIA] Onset: 2 Chronic Other female genital disorders (4 sources) Abnormal uterine and vaginal bleeding, unspecified; Translations: [ABNORMAL UTERINE VAGINAL BLEED UNS] Onset: 2 Chronic Other female genital disorders (6 sources) Abnormal uterine bleeding; Translations: [Other specified abnormal uterine and vaginal bleeding] Onset: 3 12-24-2022 Chronic Other female genital disorders (6 sources) Abnormal vaginal bleeding; Translations: [Abnormal uterine and vaginal bleeding, unspecified] Onset: 1 04-08-2023 Chronic Other gastrointestinal disorders (5 sources) Constipation alternates with diarrhea; Translations: [Other specified symptoms and signs involving the digestive system and abdomen] Onset: 4 10-20-2023 Episodic Other gastrointestinal disorders (5 sources) H/O: abdominal hernia; Translations: [Personal history of other diseases of the digestive system] Onset: 4 10-20-2023 Episodic Other gastrointestinal disorders (1 source) Diarrhea, unspecified; Translations: [Diarrhea, unspecified] Onset: 4 Episodic Other nervous system disorders (1 source) Carpal tunnel syndrome, right upper limb Chronic Other non-traumatic joint disorders (1 source) Pain in right wrist Episodic Other upper respiratory disease (6 sources) Seasonal allergy; Translations: [Other seasonal allergic rhinitis] Onset: 3 12-24-2022 Chronic Spondylosis; intervertebral disc disorders; other back problems (6 sources) Degeneration of cervical intervertebral disc; Translations: [Other cervical disc degeneration, unspecified cervical region] Onset: 3 12-24-2022 Chronic Spondylosis; intervertebral disc disorders; other back problems (8 sources) Spinal stenosis in cervical region; Translations: [Spinal stenosis, cervical region] Onset: 3 12-24-2022 Episodic Substance-related disorders (7 sources) Nicotine dependence, cigarettes, uncomplicated; Translations: [Tobacco dependence syndrome] Onset: 2 12-24-2022 Chronic Unclassified (4 sources) 13 weeks gestation of ; Translations: [27 weeks gestation of ] Onset: 7 Unclassified (1 source) PERSONAL HISTORY OF COVID-19; Translations: [PERSONAL HISTORY OF COVID-19] Onset: 2 Unclassified (1 source) CONTACT W/AND (SUSP) EXPOS COVID-19; Translations: [CONTACT W/AND (SUSP) EXPOS COVID-19] Onset: 2 Unclassified (1 source) COUGH, UNSPECIFIED; Translations: [COUGH, UNSPECIFIED] Onset: 2 Viral infection (1 source) COVID-19; Translations: [COVID-19] Onset: 1 Past or Other Problems Problem Classification Problem Date Documented Da te Episodic/Chronic Abdominal hernia (6 sources) Umbilical hernia; Translations: [Umbilical hernia without obstruction or gangrene] Onset: 12-24-2022 12-24-2022 Episodic Cardiac dysrhythmias (12 sources) Palpitations; Translations: [Palpitations] Onset: 10-22-2021 04-08-2023 Episodic Contraceptive and procreative management (4 sources) Encounter for sterilization; Translations: [ENCOUNTER FOR STERILIZATION] Onset: 02-28-2022 Episodic Genitourinary symptoms and ill-defined conditions (2 sources) Dysuria; Translations: [Other symptoms and signs involving the genitourinary system] Onset: 09-30-2017 Episodic Mood disorders (6 sources) Mood disorders Onset: 12-24-2022 12-24-2022 Normal and/or delivery (5 sources) Encounter for supervision of normal , unspecified, first trimester; Translations: [Encounter for full-term uncomplicated delivery] Onset: 01-29-2017 Episodic Other aftercare (1 source) Other long wall mining machine tender (current) drug therapy; Translations: [OTH TABLE WORKER PACKAGER CURRENT DRUG THERAPY] Onset: 03-12-2022 Episodic Other complications of (3 sources) Outcome of delivery, unspecified; Translations: [Supervision of other high risk pregnancies, third trimester] Onset: 06-10-2017 Episodic Other connective tissue disease (4 sources) Pain in right leg; Translations: [PAIN IN RIGHT LEG] Onset: 03-11-2022 Episodic Other connective tissue disease (6 sources) Ganglion cyst of right wrist; Translations: [Ganglion, right wrist] Onset: 12-24-2022 12-24-2022 Episodic Other ear and sense organ disorders (6 sources) Bilateral tinnitus; Translations: [Tinnitus, bilateral] Onset: 12-24-2022 12-24-2022 Episodic Other gastrointestinal disorders (4 sources) Other specified symptoms and signs involving the digestive system and abdomen; Translations: [Other symptoms involving digestive system] Onset: 10-29-2023 10-20-2023 Episodic Other lower respiratory disease (1 source) Personal history of pneumonia (recurrent); Translations: [PERSONAL HX OF PNEUMONIA RECURRENT] Onset: 03-12-2022 Episodic Other lower respiratory disease (6 sources) Cough; Translations: [Cough] Onset: 04-08-2023 04-08-2023 Episodic Other nutritional; endocrine; and metabolic disorders (6 sources) Overweight; Translations: [Overweight] Onset: 12-24-2022 12-24-2022 Episodic Other screening for suspected conditions (not mental disorders or infectious disease) (8 sources) Echocardiogram abnormal; Translations: [Abnormal findings on diagnostic imaging of heart and coronary circulation] Onset: 04-08-2023 04-08-2023 Episodic Other upper respiratory infections (4 sources) Acute upper respiratory infection, unspecified; Translations: [ACUTE UP RESPIRATORY INFECTION UNS] Onset: 07-16-2021 Episodic Ovarian cyst (1 source) Other ovarian cyst, right side; Translations: [OTHER OVARIAN CYST RIGHT SIDE] Onset: 11-20-2021 Episodic Residual codes; unclassified (1 source) Other specified postprocedural states; Translations: [OTH SPECIFIED POSTPROCEDURAL STATES] Onset: 03-12-2022 Episodic Residual codes; unclassified (6 sources) Insomnia; Translations: [Insomnia, unspecified] Onset: 12-24-2022 12-24-2022 Episodic Residual codes; unclassified (6 sources) Family history of cardiac disorder; Translations: [Family history of ischemic heart disease and other diseases of the circulatory system] Onset: 02-09-2024 02-09-2024 Episodic Results Test Name Value Interpretation Reference Range Facility IGP,APTIMA HPV,AGE GDLNon AGE GDLN ACOG TESTING Note . [facility] Comment on above: TESTS RESULT FLAG UN ITS REF RANGE LAB Clinician Provided Cytology Information Source.............Cervix;Endocervix No. of containers..01 ThinPrep Vial Age Algo ACOG Shanae... 32 FLAG LEGEND: L-Low Normal,H-High Normal,LL-Alert Low,HH-Alert High <-Panic Low,>-Panic High,A-Abnormal,AA-Critical Abnormal Performed at: 01 =[address] [place] [address] Claire Pinedo MD, HPV APTIMA Negative Negative [facility] Comment on above: This nucleic acid am plification test detects fourteen high- risk HPV types (16,18,31,33,35,39,45,51,52,56,58,59,66,68) without differentiation. Performed at: =[address] [id number] Manager Furniture: Claire Pinedo MD, Phone: [phone] Performed at: [address] [id number] Manager Furniture: Claire Pinedo MD, Phone: [phone] IGP, APTIMA HPV, RFX 16/18,45 Note . [facility] Comment on above: TESTS RESULT FLAG UN ITS REF RANGE LAB DIAGNOSIS: 02 NEGATIVE FOR INTRAEPITHELIAL LESION OR MALIGNANCY. REACTIVE CELLULAR CHANGES AND/OR REPAIR ARE PRESENT. Specimen adequacy: 02 Satisfactory for evaluation. Endocervical and/or squamous metaplastic cells (endocervical component) are present. Performed by: Jyoti Garner, Back Order Clerk (ASCP) Electronically si... Ingris Piper MD, Pathologist . 02 Note: Note 02 The Pap smear is a screening test designed to aid in the detection of premalignant and malignant conditions of the uterine cervix. It is not a diagnostic procedure and should not be used as the sole means of detecting cervical cancer. Both false-positive and false-negative reports do occur. Test Methodology: Note 02 This liquid based ThinPrep(R) pap test was screened with the use of an image guided system. HPV Genotype Reflex Note 02 Criteria not met, HPV Genotype not performed. FLAG LEGEND: L-Low Normal,H-High Normal,LL-Alert Low,HH-Alert High <-Panic Low,>-Panic High,A-Abnormal,AA-Critical Abnormal Performed at: [address] [facility] [address] [place] [address] Claire Pinedo MD, BRUSH-SPATULA CERVIX ENDOCERVIX [facility] Healthcar e HCG ( test) IA.rapi d Ql (U)Ordered By: Marlin Eisenberg on 11-20-2023 HCG ( test) Ql (U) Negative [facility] HCG,Urineon 11-20-2023 Beta HCG ( test) Ql (U) Negative Normal [facility] Comment on above: Result Comment: PERF ORMED BY: [place] [address] PATHOLOGIST NETWORK DIAGNOSTIC SUPPORT SPECIALIST SHOBHA LANDIN M.D. Performed By: #### U HCG #### [address] Niranjan 11-20-2023 L Specimen: [id number] Received: 11/20/23 Status: ISSAC Capellan Num: [id number] Spec Type: Surgical Subm Dr: Marlin Eisenberg DO Tissues: A Colon Biopsy (RANDOM RT) B Colon Biopsy (RANDOM LT) C Colon Biopsy (SIGMOID POLYP) Procedures: HE/6, Gross/Micro L4/3 Age/ Patient Sex Location Account Attending Physician Kate Hazel 43/F [id number] Marlin Eisenberg DO SPEC NUM: RECD: 11/20/23 STATUS: ISSAC CAPELLAN NUM: [id number] GOVIND: 11/20/23- SUBM DR: Marlin Eisenberg DO ENTERED: 11/20/[address]: SPEC TYPE: Surgical DEPT: S ORDERED: [...] fragment, entirely submitted in C1. ---- Specimen: [id number] Received: 11/20/23 Status: ISSAC [place]ellan Num: [id number] Spec Type: Surgical Subm Dr: Marlin Eisenberg, Tissues: A Colon Biopsy (RANDOM RT) B Colon Biopsy (RANDOM LT) C Colon Biopsy (SIGMOID POLYP) Procedures: HE/6, Gross/Micro L4/3 ---- Patient: Kate Hazel [id number] (Continued) ---- Specimen: [id number] Received: 11/20/23 (Continued) Gross Description (Continued) Signed (signature on file) Lisette Cosby MD 11/23/23 1437 ---- Specimen: [id number] Received: 11/20/23 Status: ISSAC [place]ellan Num: [id number] Spec Type: Surgical Subm Dr: Marlin Eisenberg DO Tissues: A Colon Biopsy (RANDOM RT) B Colon Biopsy (RANDOM LT) C Colon Biopsy (SIGMOID POLYP) Procedures: HE/6, Gross/Micro L4/3 ---- Patient: Kate Hazel [id number] (Continued) ---- Specimen: [id number] Received: 11/20/23 (Continued) Gross Description (Continued) Clinical history: Constipation/diarrhea. Rule out microscopic colitis CPT Codes 90938a0 ---- ---- Specimen: [id number] Received: 11/20/23 Status: ISSAC Capellan Num: [id number] Spec Type: Surgical Subm Dr: Marlin Eisenberg DO Tissues: A Colon Biopsy (RANDOM RT) B Colon Biopsy (RANDOM LT) C Colon Biopsy (SIGMOID POLYP) Procedures: HE/6, Gross/Micro L4/3 ---- Patient: Kate Hazel [id number] (Continued) ---- Signed (signature on file) Lisette Cosby MD 11/23/23 8211 Normal [facility] CT abdomen pelvis w marisol CT abdomen pelvis w [address] [address] [address] Scan Report Signed Patient: Kate Hazel MR#: [id number] : 1980 Acct:[id number] Age/Sex: 43 / F ADM Date: 10/29/23 Loc: CT Room: Type: [facility] Attending Dr: Vin Naranjo APRN Copies to: [...] Hall Jr., D.OWestley10/29/2023 2:04 PM Dictation Location: [place] [address] Transcribed By: [facility] 10/29/23 1404 Dictated By: Tee Hall Jr, DO 10/29/23 1402 Signed By: 10/29/23 1404 Normal [facility] XR wrist RT min 3V*on 2022 XR wrist RT min 3V* [facility] [employer] Other XR wrist RT min 3V* [facility] [employer] Other XR wrist RT min 3V* [address] [facility] [employer] Other XR wrist RT min 3V* [place] [address] [place] [employer] Other XR wrist RT min 3V* XRay Report Babak [employer] Other XR wrist RT min 3V* Signed [employer] Other XR wrist RT min 3V* Patient: Kate Hazel MR#: [id number] [employer] Other XR wrist RT min 3V* : 1980 Acct:[id number] [employer] Other XR wrist RT min 3V* Age/Sex: 41 / F ADM Date: 08/01/22 [employer] Other XR wrist RT min 3V* Loc: XDUCLY Room: Type: [facility] [employer] Other XR wrist RT min 3V* Attending Dr: Zuleima SOUZA [employer] Other XR wrist RT min 3V* Copies to: HARLEY Nichole [employer] Other XR wrist RT min 3V* Ordering Provider: HARLEY Nichole [employer] Other XR wrist RT min 3V* Date of Service: 08/01/22 [employer] Other XR wrist RT min 3V* XR/XR wrist RT min 3V*: Right wrist pain [employer] Other XR wrist RT min 3V* XR wrist RT min 3V* 08/01/2022 5:40 PM [employer] Other XR wrist RT min 3V* SIGNS AND SYMPTOMS: Fall with pain along the palmar aspect of the right wrist [employer] Other XR wrist RT min 3V* PROTOCOL: Frontal, lateral, and oblique radiographs of the right breast [employer] Other XR wrist RT min 3V* COMPARISON: None [employer] Other XR wrist RT min 3V* FINDINGS: [employer] Other XR wrist RT min 3V* The radiocarpal join t is preserved. There is no fracture or dislocation. No significant soft tissue [employer] Other XR wrist RT min 3V* swelling. [employer] Other XR wrist RT min 3V* XR/XR wrist RT min 3V* [employer] Other XR wrist RT min 3V* IMPRESSION: [place] Other XR wrist RT min 3V* No acute bony injury or significant degenerative change. [employer] Other XR wrist RT min 3V* Impression dictated by: Maurilio Driver M.D.08/01/2022 5:57 PM [employer] Other XR wrist RT min 3V* Dictation Location: [place] [address] [employer] Other XR wrist RT min 3V* Transcribed By: JOEL 08/01/22 175 [employer] Other XR wrist RT min 3V* Dictated By: Maurilio Driver II, MD 08/01/22 175 [employer] Other XR wrist RT min 3V* Signed By: [employer] Other XR wrist RT min 3V* 08/01/221756 No [facility] Other ESTRONEon 04-30-2022 Estrone, Serum 47 pg/mL Normal 27-231 [facility] Comment on above: Result Comment: Rang e Adult (Premenopausal) 27 - 231 Menstrual Cycle (1-10 days) 19 - 149 Menstrual Cycle (11-20 days) 32 - 176 Menstrual Cycle (21-30 days) 37 - 200 Performed By: #### R SPLUS #### [facility] [address] [place] [address] Dr. Johnny Johnson TESTOSTERONE, FREE,DIRECT, T OTALon 04-30-2022 Free Testosterone(Direct ) 3.2 pg/mL Normal 0.0-4.2 [facility] Comment on above: Result Comment: Perf ormed at: BN Performed By: #### R SPLUS #### [facility] [address] [place] [address] Dr. Johnny Johnson Testosterone [Mass/Vol] 41 ng/dL Normal 8-60 [facility] Comment on above: Result Comment: Perf ormed at: CB Performed By: #### R SPLUS #### [facility] [address] [place] [address] Dr. Johnny Johnson SEROTONINon 04-29-2022 Serotonin, Serum 185 ng/mL Normal 31-207 [facility] Comment on above: Performed By: #### R SPLUS #### [facility] [address] [place] [address] Dr. Johnny Johnson VIT D 1 25 DIHYDROXYon 04-28 Calcitriol(1,25 di-OH Vit D) 33.4 pg/mL Normal 24.8-81.5 [facility] Comment on above: Result Comment: Pl ease note reference interval change Performed By: #### H CGSUB #### [facility] [address] [place] [address] Dr. Johnny Johnson CORTISOLon 04-26-2022 Cortisol 18.0 ug/dL Normal [facility] Comment on above: Result Comment: Chris isol AM 6.2 - 19.4 Cortisol PM 2.3 - 11.9 Performed By: #### H CGSUB #### [facility] [address] [place] [address] Dr. Johnny Johnson DHEA-SULFATEon 04-26-2022 DHEA-Sulfate 124.0 ug/dL Normal 57.3-279.2 [facility] Comment on above: Performed By: #### D HESOWMYA #### [facility] [address] [address] [address] Johnny Johnson ESTRADIOLon 04-26-2022 Estradiol 111.0 pg/mL Normal [facility] Comment on above: Result Comment: Adul t Female: Follicular phase 12.5 - 166.0 Ovulation phase 85.8 - 498.0 Luteal phase 43.8 - 211.0 Postmenopausal <6.0 - 54.7 1st trimester 215.0 - >4300.0 Stacie ECLIA methodology Performed By: #### E STRADI #### [facility] [address] [place] [address] Dr. Johnny Johnson INSULINon 04-26-2022 Insulin 12.0 uIU/mL Normal 2.6-24.9 [facility] Comment on above: Performed By: #### H CGSUB #### [facility] [address] [place] [address] Dr. Johnny Johnson PROGESTERONEon 04-26-2022 Progesterone 0.4 ng/mL Normal [facility] Comment on above: Result Comment: Foll icular phase 0.1 - 0.9 Luteal phase 1.8 - 23.9 Ovulation phase 0.1 - 12.0 First trimester 11.0 - 44.3 Second trimester 25.4 - 83.3 Third trimester 58.7 - 214.0 Postmenopausal 0.0 - 0.1 Performed By: #### P ROGES #### [facility] [address] [place] [address] Dr. Johnny Johnson GLUCOSE BLOODon 04-25-2022 Glucose [Mass/Vol] 95 mg/dL Normal 74-106 [facility] Comment on above: Performed By: #### G MONO #### [facility] [address] [place] [address] Dr. Johnny Johnson HCG-BETA SUBUNIT QUANTon hCG,Beta Subunit,Qnt,Serum <1 Normal [facility] Comment on above: Result Comment: Fema le (Non-) 0 - 5 (Postmenopausal) 0 - 8 . Female () Weeks of Gestation 3 6 - 71 4 10 - 750 5 038 - 5157 6 917 - 85391 7 3675 -[id number] 8 10049 -336467 9 67243 -463975 10 89643 -332318 12 21471 -888952 14 77076 - 65609 15 36606 - 36646 16 3559 - 49276 17 5681 - 00136 18 2074 - 23256 Stacie ECLIA methodology Performed By: #### H CGSUB #### [facility] [address] [place] [address] Dr. Johnny Johnson CBC AUTO DIFFon 02-26-2022 BASO # 0.0 103/ul Normal 0.0-0.1 [facility] Comment on above: Performed By: #### R SPLUS #### [facility] [address] [place] [address] Dr. Johnny Johnson Basophils/100 WBC (Bld) 0.7 % Normal 0.2-2.0 [facility] Comment on above: Performed By: #### R SPLUS #### [facility] [address] [place] [address] Dr. Johnny Johnson EO # 0.1 103/ul Normal 0.0-0.7 [facility] Comment on above: Performed By: #### R SPLUS #### [facility] [address] [place] [address] Dr. Johnny Johnson Eosinophils/100 WBC (Bld) 1.7 % Normal 0.9-7.0 [facility] Comment on above: Performed By: #### R SPLUS #### [facility] [address] [place] [address] Dr. Johnny Johnson Erythrocyte distribution width (RBC) [Ratio] 13.4 % Normal 11.0-15.0 [facility] Comment on above: Performed By: #### R SPLUS #### [facility] [address] [place] [address] Dr. Johnny Johnson Hematocrit (Bld) [Volume fraction] 42.4 % Normal 36.0-48.0 [facility] Comment on above: Performed By: #### R SPLUS #### [facility] [address] [place] [address] Dr. Johnny Johnson Hemoglobin (Bld) [Mass/Vol] 14.0 g/dL Normal 12.0-16.0 [facility] Comment on above: Performed By: #### R SPLUS #### [facility] [address] [place] [address] Dr. Johnny Johnson IG # 0.01 10e3/ul Normal 0.00-0.03 [facility] Comment on above: Performed By: #### R SPLUS #### [facility] [address] [place] [address] Dr. Johnny Johnson IG % 0.2 % Normal 0.0-0.5 [facility] Comment on above: Performed By: #### R SPLUS #### [facility] [address] [place] [address] Dr. Johnny Johnson LYMPH # 2.4 103/ul Normal 1.2-3.8 [facility] Comment on above: Performed By: #### R SPLUS #### [facility] [address] [place] [address] Dr. Johnny Johnson Lymphocytes/100 WBC (Bld) 41.4 % Normal 20.5-60.0 [facility] Comment on above: Performed By: #### R SPLUS #### [facility] [address] [place] [address] Dr. Johnny Johnson MANUAL DIFF REQ NO Normal [facility] Comment on above: Performed By: #### R SPLUS #### [facility] [address] [place] [address] Dr. Johnny Johnson MCH (RBC) [Entitic mass] 29.9 pg Normal 26.7-34.0 [facility] Comment on above: Performed By: #### R SPLUS #### [facility] [address] [place] [address] Dr. Johnny Johnson MCHC (RBC) [Mass/Vol] 33.0 g/dL Normal 29.9-35.2 [facility] Comment on above: Performed By: #### R SPLUS #### [facility] [address] [place] [address] Dr. Johnny Johnson MCV (RBC) [Entitic vol] 90.6 fL Normal 81.0-99.0 [facility] Comment on above: Performed By: #### R SPLUS #### [facility] [address] [place] [address] Dr. Johnny Johnson MONO # 0.4 103/ul Normal 0.3-0.8 [facility] Comment on above: Performed By: #### R SPLUS #### [facility] [address] [place] [address] Dr. Johnny Johnson Monocytes/100 WBC (Bld) 6.6 % Normal 1.7-12.0 [facility] Comment on above: Performed By: #### R SPLUS #### [facility] [address] [place] [address] Dr. Johnny Johnson NEUT # 2.9 103/ul Normal 1.4-6.5 [facility] Comment on above: Performed By: #### R SPLUS #### [facility] [address] [place] [address] Dr. Johnny Johnson Neutrophils/100 WBC (Bld) 49.4 % Normal 43.0-75.0 [facility] Comment on above: Performed By: #### R SPLUS #### [facility] [address] [place] [address] Dr. Johnny Johnson Platelet mean volume (Bld) [Entitic vol] 10.5 fL Normal 9.5-13.5 [facility] Comment on above: Performed By: #### R SPLUS #### [facility] [address] [place] [address] Dr. Johnny Johnson PLT 221 103/ul Normal 150-450 [facility] Comment on above: Performed By: #### R SPLUS #### [facility] [address] [place] [address] Dr. Johnny Johnson RBC 4.68 106/ul Normal 4.20-5.40 [facility] Comment on above: Performed By: #### R SPLUS #### [facility] [address] [place] [address] Dr. Johnny Johnson WBC 5.9 103/ul Normal 4.0-11.0 [facility] Comment on above: Performed By: #### R SPLUS #### [facility] [address] [place], [place] [address] Dr. Johnny Johnson Covid-19 PCR ([facility])on SARS-CoV-2 (COVID-19) RNA ANATOLY+probe Ql (Unsp spec) Not detected Normal NOT DETECTED [facility] Comment on above: Result Comment: This test is not yet approved or cleared by the [place] FDA. When there are no FDA-approved or cleared tests available, and other criteria are met, FDA can make tests available under an emergency access mechanism called an Emergency Use Authorization (EUA). The EUA for this test is supported by the [employer] of Health and Human Service's (HHS's) declaration [...] consistent with SARS-CoV-2. Performed By: #### R SPLUS #### [facility] [address] [place], [place] [address] Dr. Johnny Johnson US PELVIS AND TRANSVAGon [...] LISETTE HAIRSTON Date: 2021-11-18 17:12 Normal [facility] CBC AUTO DIFFon 11-15-2021 BASO # 0.0 103/ul Normal 0.0-0.1 [facility] Comment on above: Performed By: #### H CGSUB #### [facility] [address] [place] [address] Dr. Johnny Johnson Basophils/100 WBC (Bld) 0.3 % Normal 0.2-2.0 [facility] Comment on above: Performed By: #### H CGSUB #### [facility] [address] [place] [address] Dr. Johnny Johnson EO # 0.1 103/ul Normal 0.0-0.7 [facility] Comment on above: Performed By: #### H CGSUB #### [facility] [address] [place] [address] Dr. Johnny Johnson Eosinophils/100 WBC (Bld) 1.1 % Normal 0.9-7.0 [facility] Comment on above: Performed By: #### H CGSUB #### [facility] [address] [place] [address] Dr. Johnny Johnson Erythrocyte distribution width (RBC) [Ratio] 13.1 % Normal 11.0-15.0 [facility] Comment on above: Performed By: #### H CGSUB #### [facility] [address] [place] [address] Dr. Johnny Johnson Hematocrit (Bld) [Volume fraction] 40.2 % Normal 36.0-48.0 [facility] Comment on above: Performed By: #### H CGSUB #### [facility] [address] [place] [address] Dr. Johnny Johnson Hemoglobin (Bld) [Mass/Vol] 13.1 g/dL Normal 12.0-16.0 [facility] Comment on above: Performed By: #### H CGSUB #### [facility] [address] [place] [address] Dr. Johnny Johnson IG # 0.02 10e3/ul Normal 0.00-0.03 [facility] Comment on above: Performed By: #### H CGSUB #### [facility] [address] [place] [address] Dr. Johnny Johnson IG % 0.2 % Normal 0.0-0.5 [facility] Comment on above: Performed By: #### H CGSUB #### [facility] [address] [place] [address] Dr. Johnny Johnson LYMPH # 2.2 103/ul Normal 1.2-3.8 [facility] Comment on above: Performed By: #### H CGSUB #### [facility] [address] [place] [address] Dr. Johnny Johnson Lymphocytes/100 WBC (Bld) 25.1 % Normal 20.5-60.0 [facility] Comment on above: Performed By: #### H CGSUB #### [facility] [address] [place] [address] Dr. Johnny Johnson MANUAL DIFF REQ NO Normal [facility] Comment on above: Performed By: #### H CGSUB #### [facility] [address] [place] [address] Dr. Johnny Johnson MCH (RBC) [Entitic mass] 30.0 pg Normal 26.7-34.0 [facility] Comment on above: Performed By: #### H CGSUB #### [facility] [address] [place] [address] Dr. Johnny Johnson MCHC (RBC) [Mass/Vol] 32.6 g/dL Normal 29.9-35.2 [facility] Comment on above: Performed By: #### H CGSUB #### [facility] [address] [place] [address] Dr. Johnny Johnson MCV (RBC) [Entitic vol] 92.0 fL Normal 81.0-99.0 [facility] Comment on above: Performed By: #### H CGSUB #### [facility] [address] [place] [address] Dr. Johnny Johnson MONO # 0.6 103/ul Normal 0.3-0.8 [facility] Comment on above: Performed By: #### H CGSUB #### [facility] [address] [place] [address] Dr. Johnny Johnson Monocytes/100 WBC (Bld) 6.5 % Normal 1.7-12.0 [facility] Comment on above: Performed By: #### H CGSUB #### [facility] [address] [place] [address] Dr. Johnny Johnson NEUT # 5.9 103/ul Normal 1.4-6.5 [facility] Comment on above: Performed By: #### H CGSUB #### [facility] [address] [place] [address] Dr. Johnny Johnson Neutrophils/100 WBC (Bld) 66.8 % Normal 43.0-75.0 [facility] Comment on above: Performed By: #### H CGSUB #### [facility] [address] [place] [address] Dr. Johnny Johnson Platelet mean volume (Bld) [Entitic vol] 10.7 fL Normal 9.5-13.5 [facility] Comment on above: Performed By: #### H CGSUB #### [facility] [address] [place] [address] Dr. Johnny Johnson PLT 222 103/ul Normal 150-450 [facility] Comment on above: Performed By: #### H CGSUB #### [facility] [address] [place] [address] Dr. Johnny Johnson RBC 4.37 106/ul Normal 4.20-5.40 [facility] Comment on above: Performed By: #### H CGSUB #### [facility] [address] [place] [address] Dr. Johnny Johnson WBC 8.8 103/ul Normal 4.0-11.0 [facility] Comment on above: Performed By: #### H CGSUB #### [facility] [address] [address] [address] Johnny Johnson PREG QUANT HCGon 11-15-2021 HCG QUANT <1 Normal [facility] Comment on above: Performed By: #### T SH, PREGQNT #### [facility] [address] [address] [address] Johnny Johnson HCG RANGE SEE BELOW Normal [facility] Comment on above: Result Comment: 5-50 0-1 WEEK 40-300 1-2 WEEKS 100-1,000 2-3 WEEKS 500-6,000 3-4 WEEKS 5,000-200,000 1-2 MONTHS 10,000-100,000 2-3 MONTHS 3,000-50,000 2ND TRIMESTER 1,000-50,000 3RD TRIMESTER Performed By: #### T SH, PREGQNT #### [facility] [address] [place] [address] Dr. Johnny Johnson PROTIMEon 11-15-2021 INR Coag (PPP) [Relative time] 0.99 {INR} Normal [facility] Comment on above: Performed By: #### P TT, PT #### [facility] [address] [place] [address] Dr. Johnny Johnson INR GUIDELINES SEE BELOW Normal [facility] Comment on above: Result Comment: JEANCARLOS RED INR: 2.0 - 3.0 CONDITIONS NOT LISTED BELOW 2.5 - 3.5 FOR PROSTHETIC HEART VALVE REPLACEMENT 2.5 - 3.5 RECURRENT THROMBOSIS Performed By: #### P TT, PT #### [facility] [address] [place] [address] Dr. Johnny Johnson PT Coag (PPP) [Time] 10.7 s Normal 9.0-11.6 [facility] Comment on above: Performed By: #### P TT, PT #### [facility] [address] [place] [address] Dr. Johnny Johnson PTTon 11-15-2021 aPTT Coag (Bld) [Time] 27.6 s Normal 22.3-36.2 [facility] Comment on above: Performed By: #### P TT, PT #### [facility] [address] [place] [address] Dr. Johnny Johnson TSHon 11-15-2021 TSH 2.349 uIU/mL Normal 0.470-4.680 [facility] Comment on above: Performed By: #### T EUGENE, PREGQNT #### [facility] [address] [place] [address] Dr. Johnny Johnson TSH RANGE SEE BELOW Normal [facility] Comment on above: Result Comment: <0.3 4 UIU/ml HYPERTHYROID 0.34-5.60 UIU/ml EUTHYROID >5.60 UIU/ml HYPOTHYROID Performed By: #### T EUGENE, PREGQNT #### [facility] [address] [place] [address] Dr. Johnny Johnson CBC AUTO DIFFon 11-04-2021 BASO # 0.0 103/ul Normal 0.0-0.1 [facility] Comment on above: Performed By: #### R SPLUS #### [facility] [address] [place] [address] Dr. Johnny Johnson Basophils/100 WBC (Bld) 0.4 % Normal 0.2-2.0 [facility] Comment on above: Performed By: #### R SPLUS #### [facility] [address] [place] [address] Dr. Johnny Johnson EO # 0.1 103/ul Normal 0.0-0.7 [facility] Comment on above: Performed By: #### R SPLUS #### [facility] [address] [place] [address] Dr. Johnny Johnson Eosinophils/100 WBC (Bld) 0.9 % Normal 0.9-7.0 [facility] Comment on above: Performed By: #### R SPLUS #### [facility] [address] [place] [address] Dr. Johnny Johnson Erythrocyte distribution width (RBC) [Ratio] 13.1 % Normal 11.0-15.0 [facility] Comment on above: Performed By: #### R SPLUS #### [facility] [address] [place] [address] Dr. Johnny Johnson Hematocrit (Bld) [Volume fraction] 43.0 % Normal 36.0-48.0 [facility] Comment on above: Performed By: #### R SPLUS #### [facility] [address] [place] [address] Dr. Johnny Johnson Hemoglobin (Bld) [Mass/Vol] 13.8 g/dL Normal 12.0-16.0 [facility] Comment on above: Performed By: #### R SPLUS #### [facility] [address] [place] [address] Dr. Johnny Johnson IG # 0.02 10e3/ul Normal 0.00-0.03 [facility] Comment on above: Performed By: #### R SPLUS #### [facility] [address] [place] [address] Dr. Johnny Johnson IG % 0.3 % Normal 0.0-0.5 [facility] Comment on above: Performed By: #### R SPLUS #### [facility] [address] [place] [address] Dr. Johnny Johnson LYMPH # 2.0 103/ul Normal 1.2-3.8 [facility] Comment on above: Performed By: #### R SPLUS #### [facility] [address] [place] [address] Dr. Johnny Johnson Lymphocytes/100 WBC (Bld) 27.1 % Normal 20.5-60.0 [facility] Comment on above: Performed By: #### R SPLUS #### [facility] [address] [place] [address] Dr. Johnny Johnson MANUAL DIFF REQ NO Normal [facility] Comment on above: Performed By: #### R SPLUS #### [facility] [address] [place] [address] Dr. Johnny Johnson MCH (RBC) [Entitic mass] 29.3 pg Normal 26.7-34.0 [facility] Comment on above: Performed By: #### R SPLUS #### [facility] [address] [place] [address] Dr. Johnny Johnson MCHC (RBC) [Mass/Vol] 32.1 g/dL Normal 29.9-35.2 [facility] Comment on above: Performed By: #### R SPLUS #### [facility] [address] [place] [address] Dr. Johnny Johnson MCV (RBC) [Entitic vol] 91.3 fL Normal 81.0-99.0 [facility] Comment on above: Performed By: #### R SPLUS #### [facility] [address] [place] [address] Dr. Johnny Johnson MONO # 0.5 103/ul Normal 0.3-0.8 [facility] Comment on above: Performed By: #### R SPLUS #### [facility] [address] [place] [address] Dr. Johnny Johnson Monocytes/100 WBC (Bld) 6.4 % Normal 1.7-12.0 [facility] Comment on above: Performed By: #### R SPLUS #### [facility] [address] [place] [address] Dr. Johnny Johnson NEUT # 4.8 103/ul Normal 1.4-6.5 [facility] Comment on above: Performed By: #### R SPLUS #### [facility] [address] [place] [address] Dr. Johnny Johnson Neutrophils/100 WBC (Bld) 64.9 % Normal 43.0-75.0 [facility] Comment on above: Performed By: #### R SPLUS #### [facility] [address] [place] [address] Dr. Johnny Johnson Platelet mean volume (Bld) [Entitic vol] 10.9 fL Normal 9.5-13.5 [facility] Comment on above: Performed By: #### R SPLUS #### [facility] [address] [place] [address] Dr. Johnny Johnson PLT 218 103/ul Normal 150-450 [facility] Comment on above: Performed By: #### R SPLUS #### [facility] [address] [place] [address] Dr. Johnny Johnson RBC 4.71 106/ul Normal 4.20-5.40 [facility] Comment on above: Performed By: #### R SPLUS #### [facility] [address] [place] [address] Dr. Johnny Johnson WBC 7.5 103/ul Normal 4.0-11.0 [facility] Comment on above: Performed By: #### R SPLUS #### [facility] [address] [place] [address] Dr. Johnny Johnson URon 11-04-2021 , QUAL Negative Normal NEGATIVE [facility] Comment on above: Performed By: #### H CGSUB #### [facility] [address] [place] [address] Dr. Johnny Johnson PROF CHEM 8 (BAS METB)on Anion gap [Moles/Vol] 17.4 mmol/L Normal [facility] Comment on above: Performed By: #### R SPLUS #### [facility] [address] [place] [address] Dr. Johnny Johnson Calcium [Mass/Vol] 8.6 mg/dL Normal 8.5-10.1 [facility] Comment on above: Performed By: #### R SPLUS #### [facility] [address] [place] [address] Dr. Johnny Johnson Chloride [Moles/Vol] 104 mmol/L Normal 98-107 [facility] Comment on above: Performed By: #### R SPLUS #### [facility] [address] [place] [address] Dr. Johnny Johnson CO2 [Moles/Vol] 21.4 mmol/L Critically low 22.0-30.0 [facility] Comment on above: Performed By: #### R SPLUS #### [facility] [address] [place] [address] Dr. Johnny Johnson Creatinine [Mass/Vol] 0.62 mg/dL Normal 0.52-1.04 [facility] [facility] Comment on above: Performed By: #### R SPLUS #### [facility] [address] [place] [address] Dr. Johnny Johnson EGFR-AF CITIZEN OF [place] >60 Normal >=60 [facility] Comment on above: Performed By: #### R SPLUS #### [facility] [address] [place] [address] Dr. Johnny Johnson EGFR-NON AF CITIZEN OF [place] >60 Normal >=60 [facility] Comment on above: Performed By: #### R SPLUS #### [facility] [address] [address] [address] Johnny Johnson Glucose [Mass/Vol] 101 mg/dL Normal 74-106 [facility] Comment on above: Performed By: #### R SPLUS #### [facility] [address] [place] [address] Dr. Johnny Johnson Potassium [Moles/Vol] 3.8 mmol/L Normal 3.4-5.0 [facility] Comment on above: Performed By: #### R SPLUS #### [facility] [address] [place] [address] Dr. Johnny Johnson Sodium [Moles/Vol] 139 mmol/L Normal 137-145 [facility] Comment on above: Performed By: #### R SPLUS #### [facility] [address] [place] [address] Dr. Johnny Johnson Urea nitrogen [Mass/Vol] 9.0 mg/dL Normal 7.0-18.0 [facility] Comment on above: Performed By: #### R SPLUS #### [facility] [address] [place] [address] Dr. Johnny Johnson Urea nitrogen/Creatinine [Mass ratio] 14.5 mg/mg Normal [facility] Comment on above: Performed By: #### R SPLUS #### [facility] [address] [place] [address] Dr. Johnny Johnson XR CHEST 2 Von [...] MELINDA MONTES Date: 2021-07-31 14:00 Normal [facility] RESPIRATORY PANEL PLUSon Adenovirus Not detected Normal NOT DETECTED The [facility] Comment on above: Performed By: #### R SPLUS #### [facility] [address] [place] [address] Dr. Johnny Hollingsworth. Parapertusis Not detected Normal NOT DETECTED [facility] Comment on above: Performed By: #### R SPLUS #### [facility] [address] [place] [address] Dr. Johnny Shankar Pertussis Not detected Normal NOT DETECTED [facility] Comment on above: Performed By: #### R SPLUS #### [facility] [address] [place] [address] Dr. Johnny Johnson Chlamydia Pneumoniae Not detected Normal NOT DETECTED [facility] Comment on above: Performed By: #### R SPLUS #### [facility] [address] [place] [address] Dr. Johnny Johnson Coronavirus 229E Not detected Normal NOT DETECTED [facility] Comment on above: Performed By: #### R SPLUS #### [facility] [address] [place] [address] Dr. Johnny Johnson Coronavirus HKU1 Not detected Normal NOT DETECTED [facility] Comment on above: Performed By: #### R SPLUS #### [facility] [address] [place] [address] Dr. Johnny Johnson Coronavirus NL63 Not detected Normal NOT DETECTED [facility] Comment on above: Performed By: #### R SPLUS #### [facility] [address] [place] [address] Dr. Johnny Johnson Coronavirus OC43 Not detected Normal NOT DETECTED [facility] Comment on above: Performed By: #### R SPLUS #### [facility] [address] [place] [address] Dr. Johnny Johnson Influenza A H1 2009 Not detected Normal NOT DETECTED [facility] Comment on above: Performed By: #### R SPLUS #### [facility] [address] [address] [address] Johnny Johnson Influenza A H3 Not detected Normal NOT DETECTED [facility] Comment on above: Performed By: #### R SPLUS #### [facility] [address] [place] [address] Dr. Johnny Johnson Influenza B Not detected Normal NOT DETECTED [facility] Comment on above: Performed By: #### R SPLUS #### [facility] [address] [place] [address] Dr. Johnny Johnson Metapneumovirus Not detected Normal NOT DETECTED [facility] Comment on above: Performed By: #### R SPLUS #### [facility] [address] [place] [address] Dr. Johnny Johnson Mycoplas. Pneumoniae Not detected Normal NOT DETECTED [facility] Comment on above: Performed By: #### R SPLUS #### [facility] [address] [place] [address] Dr. Johnny Johnson Parainfluenza 1 Not detected Normal NOT DETECTED [facility] Comment on above: Performed By: #### R SPLUS #### [facility] [address] [place] [address] Dr. Johnny Johnson Parainfluenza 2 Not detected Normal NOT DETECTED [facility] Comment on above: Performed By: #### R SPLUS #### [facility] [address] [place] [address] Dr. Johnny Johnson Parainfluenza 3 Not detected Normal NOT DETECTED [facility] Comment on above: Performed By: #### R SPLUS #### [facility] [address] [place] [address] Dr. Johnny Johnson Parainfluenza 4 Not detected Normal NOT DETECTED [facility] Comment on above: Performed By: #### R SPLUS #### [facility] [address] [place] [address] Dr. Johnny Johnson Rhino/Enterovirus Not detected Normal NOT DETECTED [facility] Comment on above: Performed By: #### R SPLUS #### [facility] [address] [address] [address] Johnny Johnson RP2 Header 1 RESPIRATORY PANEL: VIRUSES Normal [facility] Comment on above: Performed By: #### R SPLUS #### [facility] [address] [address] [address] Johnny Johnson RP2 Header 2 RESPIRATORY PANEL: BACTERIA Normal [facility] Comment on above: Performed By: #### R SPLUS #### [facility] [address] [address] [address] Johnny Johnson RSV Not detected Normal NOT DETECTED [facility] Comment on above: Performed By: #### R SPLUS #### [facility] [address] [address] [address] Johnny Johnson SARS-CoV-2 (COVID-19) RNA ANATOLY+probe Ql (Unsp spec) Detected Critically abnormal NOT DETECTED [facility] Comment on above: Performed By: #### R SPLUS #### [facility] [address] [place] [address] Dr. Johnny Johnson Cytology Cervical or vaginal smear or scraping studyon 05-28-2021 [facility] Cult,Urine,CCon 10-01-2017 Cult,Urine,CC Specimen Description .URINE Performed at [address] [place] [address] ([phone] Special Requests NOT REPORTEDCulture NO GROWTH Performed at [address] [id number] [phone] Report Status FINAL 10/01/2017 [facility] Comment on above: Performed By: #### P RENAT ####[address] [phone] [place] [address] Discharge Summaryon 09-01-19 18 HIM IP Note OR Cook Dinner Normal [facility] Plan of Careon 09-01-2017 HIM IP Note OR Cook Dinner Normal [facility] HIM IP Note OR Cook Dinner Normal [facility] Progress Noteon 09-01-2017 HIM IP Note OR Cook Dinner Normal [facility] Labor and Delivery Noteon HIM IP Note OR Cook Dinner Normal [facility] Plan of Careon 08-31-2017 HIM IP Note OR Cook Dinner Normal [facility] Progress Noteon 08-31-2017 HIM IP Note OR Cook Dinner Normal [facility] HIM IP Note OR Cook Dinner Normal [facility] HIM IP Note OR Cook Dinner Normal [facility] HIM IP Note OR Cook Dinner Normal [facility] HIM IP Note OR Cook Dinner Normal [facility] RhIg Workup (RhoGam)on 08-31 RhIg Workup (RhoGam) Blood Component Type MANUFACTURED PRODUCT Units Ordered 0001 ABO/Rh(D) A NEGATIVE Antibody Screen NEGATIVE History Check ANEGATIVE Rhig Eligibility OK TO TRANSFUSE Brittney NEGATIVE Du Antigen NOT TESTED Unit Number [id number] Blood Component Type RHIG Unit Division 00 Status of Unit TRANSFUSED Transfusion Status OK TO TRANSFUSEPerformed at [address] [place], [place] [id number] [phone] Normal [facility] Comment on above: Performed By: #### H IVCMB ####[id number] [place], [place] [id number] CBC with Diffon 2017 Abs. Basophil 0.00 k/uL Normal 0.0-0.2 [facility] Comment on above: Result Comment: Perf ormed at [address] [place], [place] [id number] [phone] Performed By: #### C PDAU ####[address] [place] [address] Abs.Neutrophil (Seg) 8.10 k/uL High 1.8-7.7 [facility] Comment on above: Performed By: #### C PDAU ####[address] [place] [address] Basophils/100 WBC Auto (Bld) 0 % Normal 0-2 [facility] Comment on above: Performed By: #### C PDAU ####[address] [place] [address] Eosinophils 0.10 10*3/uL Normal 0.0-0.4 [facility] Comment on above: Performed By: #### C PDAU ####[address] [place] [address] Eosinophils/100 leukocytes 1 % Normal 0-8 [facility] Comment on above: Performed By: #### C PDAU ####[address] [place] [address] Erythrocyte distribution width Auto Ratio (RBC) 14.5 % Normal 12.1-15.2 [facility] Comment on above: Performed By: #### C PDAU ####[address] [place] [address] Erythrocytes (RBC) 4.70 10*6/uL Normal 4.0-5.2 [facility] Comment on above: Performed By: #### C PDAU ####[address] [place] [address] Hematocrit (HCT) 40.9 % Normal 36-46 [facility] Comment on above: Performed By: #### C PDAU ####[address] [place] [address] Hemoglobin mass conc (Bld) 13.6 g/dL Normal 12.0-16.0 [facility] Comment on above: Performed By: #### C PDAU ####[address] [place] [address] Lymphocytes 1.70 10*3/uL Normal 1.0-4.8 [facility] Comment on above: Performed By: #### C PDAU ####[address] [place] [address] Lymphocytes/100 leukocytes 17 % Low 24-44 [facility] Comment on above: Performed By: #### C PDAU ####[address] [place] [address] MCH 28.8 pg Normal 26-34 [facility] Comment on above: Performed By: #### C PDAU ####[address] [place] [address] MCHC mass conc (RBC) 33.2 g/dL Normal 31-37 [facility] Comment on above: Performed By: #### C PDAU ####[address] [place] [address] MCV 87.0 fL Normal 80-100 [facility] Comment on above: Performed By: #### C PDAU ####[address] [place] [address] Monocytes 0.50 10*3/uL Normal 0.0-1.0 [facility] Comment on above: Performed By: #### C PDAU ####[address] [place] [address] Monocytes/100 leukocytes 5 % Normal 0-12 [facility] Comment on above: Performed By: #### C PDAU ####[address] [place] [address] Neutrophil (Seg) 77 % High 36-66 [facility] Comment on above: Performed By: #### C PDAU ####[address] [place] [address] Platelet mean volume (PMV) 10.5 fL Normal 6.0-12.0 [facility] Comment on above: Performed By: #### C PDAU ####[address] [place] [address] Platelets 169 10*3/uL Normal 140-450 [facility] Comment on above: Performed By: #### C PDAU ####[address] [place] [address] WBC (Leukocytes) 10.4 10*3/uL Normal 3.5-11.0 [facility] Comment on above: Performed By: #### C PDAU ####[address] [place] [address] Auto Diff Performed NOT REPORTED Normal [facility] Comment on above: Performed By: #### C PDAU ####[address] [place] [address] Erythrocyte morphology NOT REPORTED Normal [facility] Comment on above: Performed By: #### C PDAU ####[address] [place] [address] Erythrocytes (RBC) NOT REPORTED Normal [facility] Comment on above: Performed By: #### C PDAU ####[address] [place] [address] Granulocytes/100 WBC (Bld) NOT REPORTED Normal 0.00-0.30 [facility] Comment on above: Performed By: #### C PDAU ####[address] [place] [address] Immature granulocytes #/vol (Bld) NOT REPORTED Normal 0 [facility] Comment on above: Performed By: #### C PDAU ####[address] [place] [address] Platelets NOT REPORTED Normal [facility] Comment on above: Performed By: #### C PDAU ####[address] [place] [address] WBC Morphology NOT REPORTED Normal [facility] Comment on above: Performed By: #### C PDAU ####[address] [place] [address] Drug Scr, Abuse, Uron 2017 Amphetamine(s),Ur Negative Normal NEG [facility] Comment on above: Performed By: #### C PDAU ####[address] [place] [address] Barbiturate(s),Ur Negative Normal NEG [facility] Comment on above: Performed By: #### C PDAU ####[address] [place] [address] Base excess Negative Normal NEG [facility] Comment on above: Performed By: #### C PDAU ####[address] [place] [address] Benzodiazepine(s) Negative Normal NEG [facility] Comment on above: Performed By: #### C PDAU ####[address] [place] [address] Buprenorphrine, Ur Negative Normal NEG [facility] Comment on above: Result Comment: Perf ormed at [address] [place] [address] Performed By: #### C PDAU ####[address] [place] [address] Cannabinoid(s),Ur Negative Normal NEG [facility] Comment on above: Performed By: #### C PDAU ####[address] [place] [address] Methamphetamine, Ur Negative Normal NEG [facility] Comment on above: Performed By: #### C PDAU ####[address] [place] [address] Opiate(s), Ur Negative Normal NEG [facility] Comment on above: Performed By: #### C PDAU ####[address] [place] [address] Oxycodone, Urine Negative Normal NEG [facility] Comment on above: Performed By: #### C PDAU ####[address] [place] [address] Phencyclidine, Ur Negative Normal NEG [facility] Comment on above: Performed By: #### C PDAU ####[address] [place] [address] Propoxyphene,Urine Negative Normal NEG [facility] Comment on above: Performed By: #### C PDAU ####[address] [place] [address] Urine, methadone presence Negative Normal NEG [facility] Comment on above: Performed By: #### C PDAU ####[address] [place] [address] Urine, tricyclic antidepressants Negative Normal NEG [facility] Comment on above: Result Comment: Drug screen results are to be used for medical purposes only. All positive results are unconfirmed. Testing for employment or legal uses should be sent to a reference laboratory for confirmation. Performed By: #### C PDAU ####[address] [place] [address] Interpretive Info NOT REPORTED Normal [facility] Comment on above: Performed By: #### C PDAU ####[address] [place] [address] MDMA, Urine NOT REPORTED Normal NEG [facility] Comment on above: Performed By: #### C PDAU ####[address] [place] [address] History and Physicalon 08-30 HIM IP Note OR Cook Dinner Normal [facility] Progress Noteon 2017 HIM IP Note OR Cook Dinner Normal [facility] HIM IP Note OR Cook Dinner Normal [facility] HIM IP Note OR Cook Dinner Normal [facility] Urinalysis, Routineon 2017 Acetaminophen mass conc Negative Normal NEG [facility] Comment on above: Performed By: #### C PDAU ####[address] [place] [address] Bilirubin (direct) Negative Normal NEG [facility] Comment on above: Performed By: #### C PDAU ####[address] [place] [address] Hemoglobin mass conc (Bld) 2+ Abnormal NEG [facility] Comment on above: Performed By: #### C PDAU ####[address] [place] [address] Nitrite,Ur Negative Normal NEG [facility] Comment on above: Performed By: #### C PDAU ####[address] [place] [address] Turbidity CLEAR Normal CLEAR [facility] Comment on above: Performed By: #### C PDAU ####[address] [place] [address] Urine, color YELLOW Normal YEL [facility] Comment on above: Performed By: #### C PDAU ####[address] [place] [address] Urine, glucose presence Negative Normal NEG [facility] Comment on above: Performed By: #### C PDAU ####[address] [place] [address] Urine, leukocyte esterase presence Negative Normal NEG [facility] Comment on above: Result Comment: Perf ormed at [address] [place] [address] Performed By: #### C PDAU ####[address] [place] [address] Urine, pH 6.5 [pH] Normal 5.0-9.0 [facility] Comment on above: Performed By: #### C PDAU ####[address] [place] [address] Urine, protein presence Negative Normal NEG [facility] Comment on above: Performed By: #### C PDAU ####[address] [place] [address] Urine, specific gravity 1.010 Normal 1.010-1.020 [facility] Comment on above: Performed By: #### C PDAU ####[address] [place] [address] Urobilinogen,Ur Normal Normal NORM [facility] Comment on above: Performed By: #### C PDAU ####[address] [place] [address] Comment NOT REPORTED Normal [facility] Comment on above: Performed By: #### C PDAU ####[address] [place] [address] Urinalysis,Microon 8 ----- Normal [facility] Comment on above: Performed By: #### C PDAU ####[address] [place] [address] Urine WBC's 0 TO 2 Normal 0-5 [facility] Comment on above: Performed By: #### C PDAU ####[address] [place] [address] Urine, epithelial cells in sediment 0 TO 2 Normal 0-25 [facility] Comment on above: Result Comment: Perf ormed at [address] [place] [address] Performed By: #### C PDAU ####[address] [place] [address] Urine, erythrocytes 0 TO 2 Normal 0-2 [facility] Comment on above: Performed By: #### C PDAU ####[address] [place] [address] Epithelial, Renal NOT REPORTED Normal 0 [facility] Comment on above: Performed By: #### C PDAU ####[address] [place] [address] Mucus Strands NOT REPORTED Normal NONE [facility] Comment on above: Performed By: #### C PDAU ####[address] [place] [address] Other Observations NOT REPORTED [facility] on above: Performed By: #### C PDAU ####[address] [place] [address] Trichomonas NOT REPORTED Normal NONE [facility] Comment on above: Performed By: #### C PDAU ####[address] [place] [address] Urine, amorphous sediment presence in sediment NOT REPORTED Normal [facility] Comment on above: Performed By: #### C PDAU ####[address] [place] [address] Urine, bacteria in sediment NOT REPORTED Normal NONE [facility] Comment on above: Performed By: #### C PDAU ####[address] [place] [address] Urine, casts in sediment NOT REPORTED Normal [facility] Comment on above: Performed By: #### C PDAU ####[address] [place] [address] Urine, crystals in sediment NOT REPORTED Normal [facility] Comment on above: Performed By: #### C PDAU ####[address] [place] [address] Urine, yeast presence in sediment NOT REPORTED Normal [facility] Comment on above: Performed By: #### C PDAU ####[address] [place] [address] Rule Out Grp.B Strepon 08-14 Rule Out Grp.B Strep Specimen Description .Vag/Rectal Performed at [address] [place] [address] Special Requests NOT REPORTEDCulture NEGATIVE FOR GROUP B STREPTOCOCCI Performed at [facility] [address] [place], [place] [address] [phone] Report Status FINAL 08/14/2017 [facility] Comment on above: Performed By: #### R OGBS ####[address] [place], [place] [phone] [place] [address] Progress Noteon 08-11-2017 HIM IP Note OR Cook Dinner Normal [facility] Glucose Blake Scr 50gon 2016 Glucose mass conc 128 mg/dL Normal 70-135 [facility] Comment on above: Result Comment: Perf ormed at [address] [place], [place] [id number] [phone] Performed By: #### H GB, GLUSC ####[address] [place] [address] Glu Administered via Glucola Normal [facility] Comment on above: Performed By: #### H GIULIANA, GLUSC ####[address] [place] [address] Hemoglobinon 06-10-2017 Hemoglobin mass conc (Bld) 12.6 g/dL Normal 12.0-16.0 [facility] Comment on above: Result Comment: Perf ormed at [address] [place] [address] Performed By: #### H GIULIANA, GLUSC ####[address] , [place] [id number] RhIg Workup (RhoGam)on 06-10 RhIg Workup (RhoGam) Blood Component Type MANUFACTURED PRODUCT Units Ordered 1 ABO/Rh(D) A NEGATIVE Antibody Screen NEGATIVE History Check ANEGATIVE Unit Number [id number] Blood Component Type RHIG Unit Division 00 Status of Unit TRANSFUSED Transfusion Status OK TO TRANSFUSEPerformed at [address] [place] [address] Normal [facility] Comment on above: Performed By: #### T RHIGW ####[address] [place] [address] Chlamydia/GC DNA, Uron 02-26 Chlamydia Probe, Ur Negative Normal NEG [facility] Comment on above: Result Comment: CHLA MYDIA TRACHOMATIS DNA not detected by nucleic acid amplification. Performed By: #### U CGP ####[address] [address] Gonorrhea Probe, Ur Negative Normal NEG [facility] Comment on above: Result Comment: NEIS SERIA GONORRHOEAE DNA not detected by nucleic acid amplification.Performed at [address] [address] Performed By: #### U CGP ####[address] [address] Cult,Urine,CCon 01-31-2017 Cult,Urine,CC Specimen Description .URINE Performed at [address] [place] [address] Special Requests CCMS Performed at [address] [place] [address] Culture NO SIGNIFICANT GROWTH Performed at [address] [address] Report Status FINAL 01/30/2017 Normal [facility] Comment on above: Performed By: #### C CHALINO ####[address] [phone] [place] [address] HIV Ag/Abon 01-30-2017 HIV Ag/Ab NONREACTIVE Normal NR [facility] Comment on above: Result Comment: No l aboratory evidence of HIV infection. If acute HIV infection is suspected, consider testing for HIV-1 RNA.This is an FDA approved immunoassay that detects HIV-1 and HIV-2 antibodies and HIV-1 p24 antigen to screen for infection with HIV-1 or HIV-2.Performed at [address] [address] Performed By: #### H IVCMB ####[address] [address] Profileon 7 T.pallidum Ab Screen NONREACTIVE Normal NR [facility] Comment on above: Result Comment: T. p allidum antibodies are not detected.There is no serological evidence of infection with T. pallidum (early primary syphilis cannot be excluded). Retest in 2-4 weeks if syphilis is clinically suspect.Performed at [address] [address] Performed By: #### P RENAT ####[address] [phone] [place] [address] Hep B Surf Ag NONREACTIVE Normal NR [facility] Comment on above: Result Comment: Perf ormed at [address] [address] Performed By: #### P RENAT ####[address] [phone] [place] [address] Rubella Ab, IgG 213.4 IU/mL Normal [facility] Comment on above: Result Comment: REFE RENCE RANGE:<5.0 NON-REACTIVE (non- immune)5.0 TO 9.9 EQUIVOCAL>=10.0 REACTIVE (immune)NOTE: NEW REFERENCE RANGEPerformed at [address] [address] Performed By: #### P RENAT ####[address] [phone] [place] [address] Profileon 7 Abs. Basophil 0.00 k/uL Normal 0.0-0.2 [facility] Comment on above: Result Comment: Perf ormed at [address] [place] [address] Performed By: #### P RENAT ####[address] [phone] [place] [address] Abs.Neutrophil (Seg) 5.90 k/uL Normal 1.8-7.7 [facility] Comment on above: Result Comment: Perf ormed at [address] [place] [address] Performed By: #### P RENAT ####[address] [phone] [place] [address] Basophils/100 WBC Auto (Bld) 0 % Normal [facility] Comment on above: Result Comment: Perf ormed at [address] [place] [address] Performed By: #### P RENAT ####[address] [phone] [place] [address] Eosinophils 0.10 10*3/uL Normal 0.0-0.4 [facility] Comment on above: Result Comment: Perf ormed at [address] [place] [address] Performed By: #### P RENAT ####[address] [phone] [place] [address] Eosinophils/100 leukocytes 1 % Normal [facility] Comment on above: Result Comment: Perf ormed at [address] [place] [address] Performed By: #### P RENAT ####[address] [phone] [place] [address] Erythrocyte distribution width Auto Ratio (RBC) 13.4 % Normal 12.1-15.2 [facility] Comment on above: Result Comment: Perf ormed at [address] [place] [address] Performed By: #### P RENAT ####[address] [phone] [place] [address] Erythrocytes (RBC) 4.78 10*6/uL Normal 4.0-5.2 [facility] Comment on above: Result Comment: Perf ormed at [address] [place] [address] Performed By: #### P RENAT ####[address] [phone] [place] [address] Hematocrit (HCT) 42.6 % Normal 36-46 [facility] Comment on above: Result Comment: Perf ormed at [address] [place] [address] Performed By: #### P RENAT ####[address] [phone] [place] [address] Hemoglobin mass conc (Bld) 14.2 g/dL Normal 12.0-16.0 [facility] Comment on above: Result Comment: Perf ormed at [address] [place] [address] Performed By: #### P RENAT ####[address] [phone] [place] [address] Lymphocytes 1.90 10*3/uL Normal 1.0-4.8 [facility] Comment on above: Result Comment: Perf ormed at [address] [place] [address] Performed By: #### P RENAT ####[address] [phone] [place] [address] Lymphocytes/100 leukocytes 22 % Normal [facility] Comment on above: Result Comment: Perf ormed at [address] [place] [address] Performed By: #### P RENAT ####[address] [phone] [place] [address] [place] [address] MCH 29.6 pg Normal 26-34 [facility] Comment on above: Result Comment: Perf ormed at [address] [place] [address] Performed By: #### P RENAT ####[address] [phone] [place] [address] MCHC mass conc (RBC) 33.3 g/dL Normal 31-37 [facility] Comment on above: Result Comment: Perf ormed at [address] [place] [address] Performed By: #### P RENAT ####[address] [place] [phone] [place] [address] MCV 89.1 fL Normal 80-100 [facility] Comment on above: Result Comment: Perf ormed at [address] [place] [address] Performed By: #### P RENAT ####[address] [phone] [place] [address] Monocytes 0.40 10*3/uL Normal 0.0-1.0 [facility] Comment on above: Result Comment: Perf ormed at [address] [place] [address] Performed By: #### P RENAT ####[address] [phone] [place] [address] Monocytes/100 leukocytes 5 % Normal [facility] Comment on above: Result Comment: Perf ormed at [address] [place] [address] Performed By: #### P RENAT ####[address] [phone] [place] [address] Neutrophil (Seg) 72 % Normal [facility] Comment on above: Result Comment: Perf ormed at [address] [place] [address] Performed By: #### P RENAT ####[address] [phone] [place] [address] Platelets 206 10*3/uL Normal 140-450 [facility] Comment on above: Result Comment: Perf ormed at [address] [place] [address] Performed By: #### P RENAT ####[address] [phone] [place] [address] WBC (Leukocytes) 8.4 10*3/uL Normal 3.5-11.0 [facility] Comment on above: Result Comment: Perf ormed at [address] [place] [address] Performed By: #### P RENAT ####[address] [phone] [place] [address] [place] [address] Auto Diff Performed NOT REPORTED Normal [facility] Comment on above: Performed By: #### P RENAT ####[address] [phone] [place] [address] , [place] [address] Erythrocyte morphology NOT REPORTED Normal [facility] Comment on above: Performed By: #### P RENAT ####[address] [phone] [place] [address] , [place] [address] Platelet mean volume (PMV) NOT REPORTED Normal 6.0-12.0 [facility] Comment on above: Performed By: #### P RENAT ####[address] [phone] [place] [address] Platelets NOT REPORTED Normal [facility] Comment on above: Performed By: #### P RENAT ####[address] [place] [phone] [place] [address] WBC Morphology NOT REPORTED Normal [facility] Comment on above: Performed By: #### P RENAT ####[address] [place] [phone] [place] [address] Type + Scrnon 01-29 Type + Scrn ABO/Rh(D) A NEGATIVE Antibody Screen NEGATIVE Performed at [address] [place] [address] Normal [facility] Comment on above: Performed By: #### P RTYS ####[address] [place] [address] Toxicology Scree, Urineon Amphetamine(s),Ur Negative Normal NEG [facility] Comment on above: Performed By: #### C PDAU ####[address] [place] [address] Barbiturate(s),Ur Negative Normal NEG [facility] Comment on above: Performed By: #### C PDAU ####[address] [place] [address] Base excess Negative Normal NEG [facility] Comment on above: Performed By: #### C PDAU ####[address] [place] [address] Benzodiazepine(s) Negative Normal NEG [facility] Comment on above: Performed By: #### C PDAU ####[address] [place] [address] Buprenorphrine, Ur Negative Normal NEG [facility] Comment on above: Result Comment: Perf ormed at [address] [place] [address] Performed By: #### C PDAU ####[address] [place] [address] Cannabinoid(s),Ur Negative Normal NEG [facility] Comment on above: Performed By: #### C PDAU ####[address] [place] [address] Methamphetamine, Ur Negative Normal NEG [facility] Comment on above: Performed By: #### C PDAU ####[address] [place] [address] Opiate(s), Ur Negative Normal NEG [facility] Comment on above: Performed By: #### C PDAU ####[address] [place] [address] Oxycodone, Urine Negative Normal NEG [facility] Comment on above: Performed By: #### C PDAU ####[address] [place] [address] Phencyclidine, Ur Negative Normal NEG [facility] Comment on above: Performed By: #### C PDAU ####[address] [place] [address] Propoxyphene,Urine Negative Normal NEG [facility] Comment on above: Performed By: #### C PDAU ####[address] [place] [address] Urine, methadone presence Negative Normal NEG [facility] Comment on above: Performed By: #### C PDAU ####[address] [place] [address] Urine, tricyclic antidepressants Negative Normal NEG [facility] Comment on above: Result Comment: Drug screen results are to be used for medical purposes only. All positive results are unconfirmed. Testing for employment or legal uses should be sent to a reference laboratory for confirmation. Performed By: #### C PDAU ####[address] , [place] [address] Interpretive Info NOT REPORTED Normal [facility] Comment on above: Performed By: #### C PDAU ####[address] , [place] 140[address] MDMA, Urine NOT REPORTED Normal NEG [facility] Comment on above: Performed By: #### C PDAU ####[address] , [place] [address]83 Vital Signs Date Time Vital Sign Value Performing Clinician Facility 05-16-2024 14:50-0400 Body height 165.1 cm Elana Hemmer PA Work Phone: [facility] 05-16-2024 14:50-0400 Body mass index (BMI) [Ratio] 29.15 kg/m2 Elana Hemmer PA Work Phone: [facility] 05-16-2024 14:50-0400 Body weight 79.47 kg Elana Hemmer PA Work Phone: [facility] 05-16-2024 14:50-0400 Diastolic blood pressure 74 mm[Hg] Elana Hemmer PA Work Phone: [facility] 05-16-2024 14:50-0400 Heart rate 80 /min Elana Hemmer PA Work Phone: [facility] 05-16-2024 14:50-0400 Respiratory rate 16 /min Elana Hemmer PA Work Phone: [facility] 05-16-2024 14:50-0400 SaO2% (BldA) [Mass fraction] 98 % Elana Hemmer PA Work Phone: [facility] 05-16-2024 14:50-0400 Systolic blood pressure 116 mm[Hg] Elana Hemmer PA Work Phone: [facility] 05-05-2024 14:55-0400 Body mass index (BMI) [Ratio] 28.92 kg/m2 Joselyn Alonsoey PA Work Phone: [facility] 05-05-2024 14:55-0400 Body weight 78.83 kg Joselyn Abarca PA Work Phone: [facility] 05-05-2024 14:55-0400 Diastolic blood pressure 70 mm[Hg] Joselyn Abarca PA Work Phone: [facility] 05-05-2024 14:55-0400 Systolic blood pressure 120 mm[Hg] Joselyn Abarca PA Work Phone: [facility] 11-20-2023 08:46-0400 Diastolic blood pressure 71 mm[Hg] II Ko Muro Work Phone: [facility] 11-20-2023 08:46-0400 Heart rate 69 /min II Ko Muro Work Phone: [facility] 11-20-2023 08:46-0400 Respiratory rate 16 /min II Ko Muro Work Phone: [facility] 11-20-2023 08:46-0400 SaO2% (BldA) [Mass fraction] 99 % II Ko Muro Work Phone: [facility] 11-20-2023 08:46-0400 Systolic blood pressure 116 mm[Hg] II Ko Muro Work Phone: [facility] 11-20-2023 07:22-0400 Body height 165.1 cm II Ko Muro Work Phone: [facility] 11-20-2023 07:22-0400 Body weight 77.11 kg II Ko Muro Work Phone: [facility] 10-20-2023 15:05-0400 Body height 165.1 cm [facility] 10-20-2023 15:05-0400 Body mass index (BMI) [Ratio] 28.3 kg/m2 [facility] 10-20-2023 15:05-0400 Body weight 77.11 kg [facility] 08-01-2022 18:10-0500 Body height 165.1 cm Zuleima Thacker Other [facility] Other 08-01-2022 18:10-0500 Body mass index (BMI) [Ratio] 28.29 kg/m2 Zuleima Thacker Other [facility] Other 08-01-2022 18:10-0500 Body temperature 97.6 [degF] Zuleima Thacker Other [facility] Other 08-01-2022 18:10-0500 Body weight 77.11 kg Zuleima Thacker Other [facility] Other 08-01-2022 18:10-0500 Diastolic blood pressure 79 mm[Hg] Zuleima Thacker Other [facility] Other 08-01-2022 18:10-0500 Respiratory rate 18 /min Zuleima Thacker Other [facility] Other 08-01-2022 18:10-0500 SaO2% (BldA) [Mass fraction] 99 % Zuleima Thacker Other [facility] Other 08-01-2022 18:10-0500 Systolic blood pressure 130 mm[Hg] Zuleima Thacker Other [employer] Other Encounters Encounter Date Encounter Type Care Provider Facility Start: 05-16-2024 End: 05-16-2024 Office outpatient visit 15 minutes Elana Ram PA Work Phone: [facility] Comment on above: Spinal stenosis in c ervical region (Primary Dx); Generalized anxiety disorder (CMS/HCC); Chest pain, unspecified type Start: 05-16-2024 End: 05-16-2024 ambulatory ELANA RAM Not Available Start: 05-05-2024 End: 05-05-2024 Patient encounter procedure Joselyn Abarca PA Work Phone: [facility] Work Phone: Start: 05-05-2024 End: 05-05-2024 Periodic preventive med est patient 40-64yrs Joselyn VELEZ Work Phone: [facility] Comment on above: Well woman exam with routine gynecological exam; Breast cancer screening by mammogram; Cervicitis and endocervicitis; Encounter for weight management Start: 05-05-2024 End: 05-05-2024 ambulatory JOSELYN ABARCA Not Available Start: 05-05-2024 End: 05-05-2024 Bamboo flowsheet Joselyn VELEZ Work Phone: [facility] Start: 05-05-2024 End: 05-13-2024 Bamboo flowsheet Joselyn VELEZ Work Phone: [facility] Start: 05-05-2024 End: 05-13-2024 Clinisync Result Encounter Generic External Data Provider [facility] Department Unsolicited Start: 02-09-2024 End: 02-09-2024 ambulatory ELANA Gu YO Not Available Start: 11-20-2023 Non-patient / Non-visit II Maurilio socrates Muro Work Phone: [facility] Work Phone: Start: 11-20-2023 End: 11-20-2023 Admission to same day surgery center II Ko Muro Work Phone: [facility] Work Phone: Start: 11-20-2023 End: 11-20-2023 ambulatory II Ko Muro Work Phone: [facility] Work Phone: Start: 10-29-2023 End: 10-29-2023 Patient encounter procedure II Ko Muro Work Phone: [facility] [place] Work Phone: Start: 10-29-2023 End: 10-29-2023 ambulatory II Ko Muro Work Phone: [facility] Work Phone: Start: 10-20-2023 End: 10-20-2023 ambulatory [facility] Work Phone: Start: 10-20-2023 End: 10-20-2023 Patient encounter procedure [facility] Work Phone: Start: 08-26-2023 End: 08-26-2023 ambulatory KO MURO Not Available Start: 08-06-2023 End: 08-06-2023 ambulatory BLANCHE SHABAZZ Not Available Start: 08-01-2022 End: 08-01-2022 Patient encounter procedure II Ko Muro Work Phone: [facility] [place] Work Phone: Start: 08-01-2022 End: 08-01-2022 ambulatory II Ko Muro Work Phone: [facility] Work Phone: Start: 08-01-2022 Office outpatient ne w 20 minutes Zuleima Thacker [facility] [place] Start: 04-25-2022 End: 04-26-[address] NBA SCHERER Facility:[facility] Start: 04-22-[address] NBA SCHERER Facility :[facility] Start: 03-11-2022 End: 03-11-[address] KO MURO Facility:[facility] Start: 03-02-2022 Encounter for preprocedural laboratory examination DR NBA SCHERER [facility] Start: 02-28-2022 End: 02-28-[address] NBA SCHERER Facility:[facility] Start: 02-26-2022 End: 02-27-[address] NBA SCHERER Facility:[facility] Start: 02-26-2022 End: 02-27-2022 Encounter for preprocedural laboratory examination DR NBA SCHERER Facility:[facility] Start: 02-25-2022 Encounter for preprocedural cardiovascular examination DR NBA SCHERER [facility] Start: 02-20-2022 End: 02-21-[address] NBA SCHERER Facility:[facility] Start: 02-20-2022 End: 02-21-2022 Encounter for preprocedural cardiovascular examination DR NBA SCHERER Facility:[facility] Start: 11-15-2021 End: 11-16-[address] NBA SCHERER Facility:[facility] Start: 11-04-2021 End: 11-04-2021 ambulatory GUICHO CHRISTIANSEN Facility:[facility] Start: 07-31-2021 End: 08-01-[address] ELANA RAM Facility:[facility] Start: 07-16-2021 End: 07-16-2021 ambulatory NICOL BRITO Facility:[facility] Start: 09-30-2017 End: 10-01-2017 Ambulatory [facility]ANDI E POOL [facility] Start: 2017 End: 09-01-2017 Evaluation and management of inpatient LANG [facility] Start: 08-10-2017 End: 08-11-2017 Ambulatory MANDI E POOL [facility] Start: 06-11-2017 End: 06-12-2017 Ambulatory MANDI E POOL [facility] Start: 06-10-2017 End: 06-11-2017 Ambulatory MANDI E POOL [facility] Start: 02-24-2017 End: 02-25-2017 Ambulatory MANDI E POOL [facility] Start: 01-29-2017 End: 01-30-2017 Ambulatory MANDI E POOL [facility] Procedures Date Procedure Procedure Detail Performing Clinician Start: 05-16-2024 H/O: tubal ligation History of bilateral tubal ligation Elana VELEZ Work Phone: Start: 05-05-2024 IGP,APTIMA HPV,AGE GDLN Joselyn VELEZ Work Phone: Start: 05-05-2024 Microscopic observat ion [Identifier] in Cervix by Cyto stain Elana VELEZ Work Phone: Start: 11-20-2023 Colonoscopy II Ko Muro Work Phone: Start: 10-29-2023 Computed tomography of abdomen and pelvis with contrast II Ko Bhaskar Work Phone: Start: 02-16-2023 Mammography Joselyn VELEZ Work Phone: Start: 08-01-2022 Plain X-ray of right wrist II Ko Muro Work Phone: Start: 05-28-2021 Microscopic observat ion [Identifier] in Cervix by Cyto stain Joselyn VELEZ Work Phone: Start: 05-28-2021 Cytp cerv/vag auto t hin layer prep mnl screen Ko Muro MD Work Phone: Start: 09-30-2017 URINE CULTURE CLEAN CATCH MANDI POOL Start: 09-01-2017 DISCHARGE PATIENT KATHL EEN POOL Start: 08-31-2017 RHOGAM KATHL EEN POOL Start: 08-31-2017 ADVANCE DIET TOLE RATED (NURSING COMMUNICATION) MANDI POOL Start: 08-31-2017 AMBULATE PATIENT KASEYE EN POOL Start: 08-31-2017 ASSESS MANDI P OOL Start: 08-31-2017 DIET GENERAL MANDI P OOL Start: 08-31-2017 ICE TO AFFECTED AREA BRIAN COOPERLEEN POOL Start: 08-31-2017 NOTIFY PHYSICIAN (SPECIFY) MANDI POOL Start: 08-31-2017 SALINE LOCK IV MANDI POOL Start: 08-31-2017 STRAIGHT CATH MANDI POOL Start: 08-31-2017 VITAL SIGNS MANDI P OOL Start: 08-31-2017 FULL CODE MANDI P OOL Start: 08-31-2017 TRANSFER PATIENT DEMETRIOHLE EN POOL Start: 2017 CBC WITH AUTO [...] HOUR MANDI POOL Start: 06-10-2017 RHOGAM ANTEPARTUM KASEY TINEO POOL Start: 02-24-2017 C.TRACHOMATIS N.GONORRHOEAE DNA, URINE MANDI POOL Start: 01-29-2017 HIV SCREEN MANDI P OOL Start: 01-29-2017 TYPE AND SCREEN MANDI POOL Start: 01-29-2017 URINE CULTURE CLEAN CATCH MANDI POOL Start: 01-29-2017 URINE DRUG SCREEN, COMPREHENSIVE AMNDI POOL Start: 01-29-2017 PROFILE I JAVON BHARDWAJ POOL H/O: tubal ligation History of b ilateral tubal ligation Plan of Treatment Date Care Activity Detail Author Start: 05-05-2029 Screening for malignant neoplasm of cervix [facility] Start: 05-28-2026 Screening for malignant neoplasm of cervix [facility] Start: 05-09-2025 End: 05-09-2025 Patient encounter procedure 05/09/2025 3:00 PM EDT Office Visit [facility] [address] [place] [id number] Joselyn Abarca PA [address] [place] [address] [facility] Start: 01-23-2025 Influenza vaccination Influenza Vacc ine (#1) [facility] Comment on above: Postponed from 03/27 (Patient Refused) Start: 08-16-2024 End: 08-16-2024 Patient encounter procedure 08/16/2024 3:00 PM EST Office Visit [facility] [address] [facility] [address] [place] [address] Elana Ram PA [address] [place] [address] [facility] Start: 05-16-2024 End: 05-16-2024 Patient encounter procedure 05/16/2024 3:00 PM EDT Office Visit [facility] [address] [place] [address] Elana Ram PA [address] [place] [address] [facility] Start: 05-12-2024 End: 05-12-2024 Patient encounter procedure 05/12/2024 11:30 AM EDT Office Visit [facility] [address] [facility] [address] [place] [address] Elana Ram PA [address] [place] [address] [facility] Start: 05-05-2024 End: 05-05-2024 Patient encounter procedure 05/05/2024 3:00 PM EDT Office Visit [facility] [address] [place] [address] Joselyn Abarca PA [address] [place], [place] [address] Arrived [facility] Comment on above: Arrived Start: 05-05-2024 End: 07-05-2025 MG Breast - bilateral Screening Bilateral screening mammogram Imaging Routine Breast cancer screening by mammogram Expected: 05/05/2024 (Approximate), Expires: 07/05/2025 [facility] Work Phone: Comment on above: Expected: 05/05/2024 (Approximate), Expires: 07/05/2025 Start: 03-27-2024 Influenza vaccination Influenza Vacc ine (#1) [facility] Start: 02-17-2024 Screening for malignant neoplasm of breast Mammogram [facility] Start: 11-20-[address] [facility] [address] Abdomen and Pelvi s W contrast IV [facility] Patient Education Hemorrhoids (D C) Colon Polypectomy (DC) [facility] Work Phone: THIN PREP TIS PAP AN D HR HPV DNA THIN PREP TIS PAP AND HR HPV DNA Pathology and Cytology Routine Well woman exam with routine gynecological exam Ordered: 05/05/2024 [facility] Comment on above: Ordered: 05/05/2024 Immunizations Immunization Date Immunization Notes Care Provider Fa cility 05-05-2018 pneumococcal polysaccharide vaccine, 23 valent Joselyn VELEZ Work Phone: [facility] 07-21-2017 tetanus toxoid, redu nik diphtheria toxoid, and acellular pertussis vaccine, adsorbed Joselyn VELEZ Work Phone: [facility] Payers Date Payer Category Payer Self-pay [id number] 2023 Unknown [id number] 2022 Medicaid [id number] 2022 [facility] BCBS Memb er Subscriber Plan / Payer (Effective 2022-Present) Name: Kate Hazel Relation to Subscriber: Self Name: Kate Hazel Payer ID: Not on file Type: Not on file Address: [address] [id number] 2022 Unknown BCBS BCBS xxxxxx [id number] 2022-Present [phone] [address] [id number] 2017 Private Health Insurance [id number] 2015 Unknown [id number] 1982 Unknown [id number] 09.11.840.1.546152.3.579.2. 593 1982 Unknown [id number] 840.1.466433.3.579.2. 593 1982 Unknown [id number] 16.840.1.983664.3.579.2. 593 1982 Unknown [id number] 09.11.840.1.076786.3.579.2. 593 1982 Unknown [id number] 2.16.840.1.586796.3.579.2. 593 1982 Unknown [id number] 2.16.840.1.464987.3.579.2. 593 1982 Unknown [id number] 2.16.840.1.590712.3.579.2. 593 1982 Unknown [id number] 2.16840.1.632125.3.579.2. 593 1982 Unknown [id number] 2.16840.1.989809.3.579.2. 593 1982 Unknown [id number] 2.840.1.065025.3.579.2. 593 1982 Unknown [id number] 2.840.1.360988.3.579.2. 1259 1982 Unknown [id number] 09.11.830.1.479572.3.579.2. 1259 1982 Unknown [id number] .840.1.830562.3.579.2. 1259 1982 Unknown [id number] 840.1.817005.3.579.2. 9 1982 Unknown [id number] .840.1.542883.3.579.2. 1259 1959 Self-pay [id number] 1959 Unknown [id number] 1959 Unknown [id number] Medicaid [employer] [id number] Unknown [id number]. 531 Unknown [id number]. 531 Social History Date Type Detail Facility Start: 07-08-2018 End: 11-20-2023 Tobacco smoking status SCIS Smoker (finding) [facility] Start: 1980 Sex Assigned At Female F [facility] Start: 12-24-2022 End: 05-05-2024 Sex Assigned At [facility] Other Start: 04-07-2023 End: 05-16-2024 Tobacco smoking status NHIS Smokes tobacco daily [facility] History of tobacco use Cigarette Smoker [facility] Start: 04-07-2023 End: 05-16-2024 Tobacco use and exposure Smokeless tobacco non-user [facility] Start: 02-09-2024 End: 05-16-2024 Alcoholic beverage intake Current drinker of alcohol (finding) [facility] Start: 02-09-2024 End: 05-05-2024 Alcoholic beverage intake [facility] How often to you hav e a drink containing alcohol? 2-3 time sa week [facility] How many standard drinks containing alcohol do you have on a typical day? 1 or 2 [facility] How often do you hav e 6 or more drinks on 1 occasion? Never [facility] Start: 12-24-2022 Tobacco Comment Would like to discuss medication to help quit smoking [facility] Start: 04-27-2023 Alcohol Comment Caffeine intak e: 1-2 cups per day / 1-2 drinks 2-4x a month in the past year, [facility] Start: 1980 Sex assigned at Not on file [facility] How often do you nee d to have someone help you when you read instructions, pamphlets, or other written material from your doctor or pharmacy [SILS] Patient declines to respond [facility] Do you feel stress - tense, restless, nervous, or anxious, or unable to sleep at night because your mind is troubled all the time - these days [OSQ] Rather much [facility] (I/We) worried wheth er (my/our) food would run out before (I/we) got money to buy more. Never true [facility] Goals Date Patient Goal Desired Activity /State Clinical Notes 02-28-2022 to 05-16-2024 ROSIE Infante - 05/16/2024 3:00 PM ROSIE Giles - 05/05/2024 3:00 PM EDT Note Date & Type Note Facility 05-16-2024 History of Present illness Narrative Images from the original note were not included. HPI Anxiety Additional comments: She is currently on Alprazolam as needed and it does work well for her. Med Refill Additional comments: Hydrocodone, Alprazolam Last edited by Serena Del Rio LPN on 05/16/2024 2:49 PM. Subjective Patient ID: Kate Hazel is a 43 y.o. female who presents for neck pain. Kate is present today for follow up neck pain. She is currently on Hydrocodone as needed and does work well for her. Will be scheduling with Cardiology soon. Had some medical bills she has been working on, so that delayed her being able to see them. States the chest pain has been stable. It is intermittent and thinks it is related more to her anxiety, but still wants to see Cardiology and make sure there is nothing else going on with her heart. Current Outpatient Medications on File Prior to Visit Medication Sig Dispense Refill cetirizine (ZyrTEC) 10 MG tablet TAKE 1 TABLET BY MOUTH DAILY at the same time each day 100 tablet 3 metFORMIN XR (Glucophage-XR) 500 MG 24 hr tablet Take 1 tablet (500 mg) by mouth in the evening. Take with meals Do not crush, chew, or split. 90 tablet 1 metoprolol succinate XL (Toprol-XL) 50 MG 24 hr tablet take 3 tablet by mouth once daily 180 tablet 3 orphenadrine (Norflex) 100 MG 12 hr tablet Take 1 tablet (100 mg) by mouth 2 (two) times a day as needed for muscle spasms Do not crush, chew, or split. 60 tablet 1 zolpidem (Ambien) 10 MG tablet Take 1 tablet (10 mg) by mouth as needed at bedtime for sleep 30 tablet 2 [DISCONTINUED] ALPRAZolam (Xanax) 0.25 MG tablet Take 1 tablet (0.25 mg) by mouth every 12 (twelve) hours if needed for anxiety 60 tablet 0 [DISCONTINUED] doxycycline (Vibramycin) 100 MG capsule Take 1 capsule (100 mg) by mouth in the morning and 1 capsule (100 mg) before bedtime. Do all this for 7 days. Take with at least 8 ounces (large glass) of water, do not lie down for 30 minutes after. 14 capsule 0 [DISCONTINUED] fluconazole (Diflucan) 150 MG tablet Take 1 tablet (150 mg) by mouth Daily for 1 day, THEN 1 tablet (150 mg) Daily for 1 day. Take doses 3 days apart. 2 tablet 0 [DISCONTINUED] fluconazole (Diflucan) 150 MG tablet Take 1 tablet (150 mg) by mouth 1 (one) time for 1 dose This is a 1 time dose, take single tablet by mouth. 1 tablet 1 [DISCONTINUED] HYDROcodone-acetaminophen (Hancock) 5-325 MG tablet Take 1 tablet by mouth every 6 (six) hours if needed for severe pain 120 tablet 0 No current facility-administered medications on file prior to visit. I have reviewed and reconciled the history and medication list with the patient today. Allergies Allergen Reactions Buspirone Unknown Other Reaction(s): Dizziness Other Unknown Other Reaction(s): Unknown Varenicline Abnormal heart rhythm Social History Tobacco Use Smoking status: Every Day Current packs/day: 0.50 Types: Cigarettes Smokeless tobacco: Never Tobacco comments: Would like to discuss medication to help quit smoking Vaping Use Vaping status: Never Used Substance Use Topics Alcohol use: Yes Alcohol/week: 2.0 standard drinks of alcohol Types: 2 Standard drinks or equivalent per week Comment: Caffeine intake: 1-2 cups per day / 1-2 drinks 2-4x a month in the past year, Drug use: Yes Types: Hydrocodone Family History Problem Relation Name Age of Onset Heart disease Mother Stroke Mother Multiple myeloma Neg Hx Past Medical History: Diagnosis Date Abnormal uterine bleeding Allergic Cervical spinal stenosis Chronic fatigue Degenerative disc disease, cervical DUB (dysfunctional uterine bleeding) Ganglion cyst of volar aspect of right wrist Generalized anxiety disorder (CMS/HCC) Hearing loss Hernia, umbilical Inflammatory arthritis Insomnia Major depressive disorder with single episode (CMS/HCC) Ovarian cyst right Panic attacks (CMS/HCC) Phobia, flying (CMS/HCC) Seasonal allergies Supraventricular tachycardia (CMS/HCC) Tachycardia Tinnitus Past Surgical History: Procedure Laterality Date COLONOSCOPY W/ POLYPECTOMY 11/20/2023 ENDOMETRIAL ABLATION 03/07/2022 PAP SMEAR 05/28/2021 negative SALPINGECTOMY Bilateral 07/08/2018 UMBILICAL HERNIA REPAIR 07/08/2018 WISDOM TOOTH EXTRACTION Visit Vitals BP 116/74 Pulse 80 Resp 16 Ht 5' 5 Wt 175 lb 3.2 oz SpO2 98% BMI 29.15 kg/m OB Status Ablation Smoking Status Every Day BSA 1.91 m Review of Systems Constitutional: Negative for chills, fatigue and fever. Respiratory: Negative for cough, shortness of breath and wheezing. Cardiovascular: Positive for chest pain (Intermittent). Negative for palpitations and leg swelling. Gastrointestinal: Negative for abdominal pain, constipation, diarrhea, nausea and vomiting. Musculoskeletal: Positive for neck pain. Skin: Negative for rash. Psychiatric/Behavioral: The patient is nervous/anxious (Stable). Objective Physical Exam Constitutional: General: She is not in acute distress. Appearance: Normal appearance. She is well-developed. HENT: Head: Normocephalic and atraumatic. Eyes: General: No scleral icterus. Conjunctiva/sclera: Conjunctivae normal. Cardiovascular: Rate and Rhythm: Normal rate and regular rhythm. Heart sounds: Normal heart sounds. No murmur heard. Pulmonary: Effort: Pulmonary effort is normal. No respiratory distress. Breath sounds: Normal breath sounds. No wheezing, rhonchi or rales. Skin: General: Skin is warm and dry. Neurological: General: No focal deficit present. Mental Status: She is alert and oriented to person, place, and time. Psychiatric: Mood and Affect: Mood is anxious. Behavior: Behavior normal. Comments: Mildly anxious Assessment/Plan Diagnoses and all orders for this visit: Spinal stenosis in cervical region - HYDROcodone-acetaminophen (Hancock) 5-325 MG tablet; Take 1 tablet by mouth every 6 (six) hours if needed for severe pain Medication choice and dosage is appropriate for patient's current medical conditions. Patient will continue to be required to be seen in our office at least every three months for monitoring. At each follow up visit I will reassess the patient's need for the medication. Patient is to have this medication prescribed only through this office. Failure to follow the rules and regulations will result in tapering and discontinuation of medications if applicable. Patient verbalized understanding. OARRS Report was reviewed for this patient. Generalized anxiety disorder (CMS/HCC) - ALPRAZolam (Xanax) 0.25 MG tablet; Take 1 tablet (0.25 mg) by mouth every 12 (twelve) hours if needed for anxiety Anxiety stable with the above. Will continue to monitor. Chest pain, unspecified type No increase in symptoms. Aware to go to ER if sudden worsening. She will be scheduling her appt with Cardiology soon. Follow up in about 3 months (around 08/16/2024) for Medication Follow Up. documented in this encounter [facility] 05-05-2024 History of Present illness Narrative Reason for Appointment: Patient ID: Kate Hazel is a 43 y.o. female who presents for Well Women Visit Patient presents today for Annual Exam. MEDICATIONS Current Outpatient Medications Medication Instructions ALPRAZolam (XANAX) 0.25 mg, Oral, Every 12 hours PRN cetirizine (ZyrTEC) 10 MG tablet TAKE 1 TABLET BY MOUTH DAILY at the same time each day doxycycline (VIBRAMYCIN) 100 mg, Oral, 2 times daily, Take with at least 8 ounces (large glass) of water, do not lie down for 30 minutes after HYDROcodone-acetaminophen (Hancock) 5-325 MG tablet 1 tablet, Oral, Every 6 hours PRN metFORMIN XR (GLUCOPHAGE-XR) 500 mg, Oral, Daily with evening meal, Do not crush, chew, or split. metoprolol succinate XL (Toprol-XL) 50 MG 24 hr tablet take 3 tablet by mouth once daily orphenadrine (NORFLEX) 100 mg, Oral, 2 times daily PRN, Do not crush, chew, or split. zolpidem (AMBIEN) 10 mg, Oral, Nightly PRN ALLERGIES Allergies Allergen Reactions Buspirone Unknown Other Reaction(s): Dizziness Other Unknown Other Reaction(s): Unknown Varenicline Abnormal heart rhythm PROBLEMS Active Ambulatory Problems Diagnosis Date Noted Generalized anxiety disorder (CMS/HCC) 12/16/2022 Chronic fatigue 12/24/2022 Degenerative disc disease, cervical 12/24/2022 DUB (dysfunctional uterine bleeding) 12/24/2022 Fear of flying (CMS/HCC) 12/24/2022 Ganglion of right wrist 12/24/2022 Hearing loss 12/24/2022 Inflammatory arthritis 12/24/2022 Insomnia 12/24/2022 Moderate major depression (CMS/HCC) 12/24/2022 Panic attacks (CMS/HCC) 12/24/2022 Seasonal allergies 12/24/2022 Spinal stenosis in cervical region 12/24/2022 Supraventricular tachycardia (CMS/HCC) 12/24/2022 Bilateral tinnitus 12/24/2022 Umbilical hernia without obstruction and without gangrene 12/24/2022 Tobacco dependence 12/24/2022 Overweight 12/24/2022 Abnormal vaginal bleeding 05/24/2021 Chest pain 04/08/2023 Cough 04/08/2023 Echocardiogram abnormal 04/08/2023 Mitral valve prolapse 04/08/2023 Palpitations 10/22/2021 Sinus tachycardia 04/08/2023 Family history of heart disease 02/09/2024 PVC (premature ventricular contraction) 02/09/2024 Resolved Ambulatory Problems Diagnosis Date Noted No Resolved Ambulatory Problems Past Medical History: Diagnosis Date Abnormal uterine bleeding Allergic Cervical spinal stenosis Ganglion cyst of volar aspect of right wrist Hernia, umbilical Major depressive disorder with single episode (CMS/HCC) Ovarian cyst Phobia, flying (CMS/HCC) Tachycardia Tinnitus HISTORY PAST MEDICAL HISTORY SOCIAL HISTORY Past Medical History: Diagnosis Date Abnormal uterine bleeding Allergic Cervical spinal stenosis Chronic fatigue Degenerative disc disease, cervical DUB (dysfunctional uterine bleeding) Ganglion cyst of volar aspect of right wrist Generalized anxiety disorder (CMS/HCC) Hearing loss Hernia, umbilical Inflammatory arthritis Insomnia Major depressive disorder with single episode (CMS/HCC) Ovarian cyst right Panic attacks (CMS/HCC) Phobia, flying (CMS/HCC) Seasonal allergies Supraventricular tachycardia (CMS/HCC) Tachycardia Tinnitus Social History Tobacco Use Smoking status: Every Day Current packs/day: 0.50 Types: Cigarettes Smokeless tobacco: Never Tobacco comments: Would like to discuss medication to help quit smoking Substance Use Topics Alcohol use: Yes Alcohol/week: 2.0 standard drinks of alcohol Types: 2 Standard drinks or equivalent per week Comment: Caffeine intake: 1-2 cups per day / 1-2 drinks 2-4x a month in the past year, Drug use: Yes Types: Hydrocodone FAMILY HISTORY Family History Problem Relation Name Age of Onset Heart disease Mother Stroke Mother Multiple myeloma Neg Hx SURGICAL HISTORY Past Surgical History: Procedure Laterality Date COLONOSCOPY W/ POLYPECTOMY 11/20/2023 ENDOMETRIAL ABLATION 03/07/2022 PAP SMEAR 05/28/2021 negative SALPINGECTOMY Bilateral 07/08/2018 UMBILICAL HERNIA REPAIR 07/08/2018 WISDOM TOOTH EXTRACTION REVIEW OF SYSTEMS Review of Systems: Review of Systems Constitutional: Negative. HENT: Negative. Eyes: Negative. Respiratory: Negative. Cardiovascular: Negative. Gastrointestinal: Negative. Genitourinary: Negative. Musculoskeletal: Negative. Skin: Negative. Neurological: Negative. All other systems reviewed and are negative. Hematological: Negative. Endocrine: Negative. Allergic/Immunologic: Negative. OBJECTIVE Objective: Physical Exam Constitutional: Appearance: Normal appearance. She is normal weight. Genitourinary: Right Adnexa: not tender and no mass present. Left Adnexa: not tender and no mass present. Cervical friability present. No cervical discharge. Breasts: Breasts are soft. Right: Normal. Left: Normal. HENT: Head: Normocephalic. Nose: Nose normal. Mouth/Throat: Mouth: Mucous membranes are moist. Cardiovascular: Rate and Rhythm: Normal rate. Pulses: Normal pulses. Pulmonary: Effort: Pulmonary effort is normal. Breath sounds: Normal breath sounds. Abdominal: General: Bowel sounds are normal. Palpations: Abdomen is soft. Musculoskeletal: General: Normal range of motion. Cervical back: Normal range of motion. Neurological: General: No focal deficit present. Mental Status: She is alert and oriented to person, place, and time. Skin: General: Skin is warm and dry. Psychiatric: Mood and Affect: Mood normal. Behavior: Behavior normal. Thought Content: Thought content normal. Judgment: Judgment normal. Vitals and nursing note reviewed. Exam conducted with a radio repair teacher present. Vitals: Estimated body mass index is 28.92 kg/m as calculated from the following: Height as of 04/27/23: 5' 5 . Weight as of this encounter: 173 lb 12.8 oz. BP: 120/70 No LMP recorded. Patient has had an ablation. ASSESSMENT & PLAN ICD-10-CM 1. Well woman exam with routine gynecological exam Z01.419 THIN PREP TIS PAP AND HR HPV DNA 2. Breast cancer screening by mammogram Z12.31 Bilateral screening mammogram Bilateral screening mammogram 3. Cervicitis and endocervicitis N72 doxycycline (Vibramycin) 100 MG capsule 4. Encounter for weight management Z76.89 metFORMIN XR (Glucophage-XR) 500 MG 24 hr tablet Annual Exam: Patient presents today for an annual exam. Patient states she is doing well and has no complaints. Pap was obtained without difficulty. Pt complains of having spotting w/intercourse off and on. Cervicitis on exam. Doxycycline was prescribed to begin taking for 7 days. Pt complains of not able to lose weight and staying at the same weight for years now. Patients BMI is 28.92 and is not a candidate for Adipex. Pt was asked to try Metformin and see how she does with weight loss and pt verbally agreed to try the medication. Rx for Metformin was also sent to pharmacy for pt to roll picker. Orders Placed This Encounter Procedures Bilateral screening mammogram Follow Up: Patient is to return in one year for annual unless needed otherwise. Documented by Fabiola Matt MA on behalf of: ROSIE Glass documented in this encounter [facility] 11-20-2023 Procedure note [facility] 08-01-2022 Evaluation note Encounter Date Diagnosis Assessment [...] no improvement in 5 to 7 days. [facility] Other 08-05-2022 NoteOPERATIVE NOTE OPERATION DATE: 02/28/2022 PROCEDURE: Yue endometrial ablation with hysteroscopy with bilateral laparoscopic salpingectomy. PREOPERATIVE DIAGNOSIS: Menorrhagia, dysmenorrhea, desires permanent sterilization, multiparity. POSTOPERATIVE DIAGNOSIS: Menorrhagia, dysmenorrhea, desires permanent sterilization, multiparity. ANESTHESIA: General. SURGEON: Nba Scherer D.O. [employer] AVIONICS: MO Graham URINE OUTPUT: Yellow and clear. [...] the anterior abdominal wall using the LigaSure. ???[facility] noteNo assessment information availableGalion [facility] Work Phone: Evaluation note* Diagnosis Onset Date Resolution Status Alternating constipation and diarrhea acute Lower abdominal pain acute [facility] Work Phone: Evaluation note* Diagnosis Well woman exam with routine gynecological exam Routine gynecological examination Breast cancer screening by mammogram Cervicitis and endocervicitis Encounter for weight management documented [facility] Diagnosis Spinal stenosis in cervical region- Primary Generalized anxiety disorder (CMS/HCC) Generalized anxiety disorder Chest pain, unspecified type documented in this encounter [facility] Author Marlin Eisenberg [facility] November 20, 2023 7:46am Note Date/Time November 20, 2023 7:4 6am [facility] [address] [place] [address] Gastroenterology H&P Signed Patient: Kaet Hazel MR#: [id number] : 1980 Acct:[id number] Age/Sex: 43 / F Adm Date: 4 Loc: Room: Type: [facility] Attending Dr: Marlin Eisenberg DO Copies to: [...] signed by Marlin Eisenberg DO> 11/20/23 0746 [facility] Work Phone: History general Narrative - Reported* Type Description Date Medical History mitral valve prolapse Medical History anxiety Medical History tachycardia Surgical History wisdom teeth Surgical History cyst removed from right arm [facility] Other Summary Purpose Family History No Family [...] section and content) DATE CREATED AUTHOR 01/15/2018 [facility] DATE CREATED AUTHOR AUTHOR'S ORGANIZ ATION 07/03/2022 [facility] DATE CREATED AUTHOR AUTHOR'S ORGANIZ ATION 02/14/2024 [facility] DATE CREATED AUTHOR AUTHOR'S ORGANIZ ATION 05/18/2024 [facility] Care Teams (unrecognized sec tion and content) Team Status: Inactive Member Role Status Dates Ko Muro II MD Primary Care Provider Active KARI MoraC Attending Provider Active Team Status: Active Member [...] Other Provider Active Start: November 20, 2023 Clinical Trainer Relationship Specialty Start Date End Date Ko Muro MD [address] [facility] [address] [place] [address] PCP - General Internal Medicine 12/23/22 Ko Muro MD [address] [facility] [address] [place] [address] PCP - [place] [employer] 08/27/23 Clinical Trainer Relationship Specialty Start Date End Date Ko Muro MD [address] [facility] [address] [place] [address] PCP - General Internal Medicine 12/23/22 Ko Muro MD [address] [facility] [address] [place] [address] PCP - [place] [employer] 08/27/23 Clinical Trainer Relationship Specialty Start Date End Date Ko Muro MD [address] [facility] [address] [place] [address] PCP - General Internal Medicine 12/23/22 Ko Muro MD [address] [facility] [address] [place] [address] PCP - [place] [employer] 08/27/23 Clinical Trainer Relationship Specialty Start Date End Date Ko Muro MD [address] [facility] [address] [place] [address] PCP - General Internal Medicine 12/23/22 Ko Muro MD [address] [facility] [address] [place] [address] PCP - [facility] 08/27/23 Goals (unrecognized section and content) Goals may be documented in a n alternate sectionNo InformationGoals may be documented in an alternate sectionGoals may be documented in an alternate section REASON FOR VISIT (unrecogniz ed section and content) Reason Comments Well Women Visit Reason Comments Anxiety She is currently on Alprazolam as needed and it does work well for her. Med Refill Hydrocodone, Alprazo hernandez FOR RECORDS PERTAINING TO PATIENTS WHO ARE [...] BE BASED ON THE PRIMARY CLINICAL RECORDS. [facility] [employer] [facility]. provides no warranty or guarantee of the accuracy or completeness of information in this document.
== END 2024-05-24 14:37 | disposition home or self-care (01) ==
LOC: MAMMO 14:36
PROVIDERS: PCP Internal Medicine; Visit Provider Internal Medicine
DX: Z12.31 Encounter for screening mammogram for malignant neoplasm of breast (principal)
CPT/HCPCS: 77063; 77067

== ENCOUNTER 2025-04-07 17:25 | Emergency (ER) | payer BC, SELFPAY ==
[2025-04-07] VITALS (12 sets, daily range): BP systolic 123–150; BP diastolic 69–82; PULSE 66–78; TEMP 36.7; O2SAT 94–99; BMI 29.0
--- NOTE | 2025-04-07 17:50 | ECG_ITS ---
[facility] Test Date: 2025-04-07 Pat Name: GORDON REYNA Department: Room: - Gender: Female Conflicts Analyst: : 1980 Requested By: [id number] Order Number: [id number] Reading MD: RANDAL REYEZ Measurements Intervals [place] Rate: 70 P: 52 NE: 166 QRS: 76 QRSD: 78 T: 65 QT: 376 QTc: 397 Interpretive Statements 1100 Sinus rhythm 9110 normal ECG Compared to ECG 02/20/2022 11:48:45 No significant changes Electronically Signed On 04-10-2025 16:43:26 EDT by RANDAL REYEZ
--- NOTE | 2025-04-07 17:50 | XR_ITS ---
The [place] [id number] Patient Name: GORDON REYNA MRN: [id number] date: 1980 Sex: F Assigned Patient Location: ED.MAIN Current Patient Location: ED.MAIN Accession/Order Number: [id number] Exam Date: 04/07/2025 17:58 Report Date: 04/07/2025 18:17 At the request of: LAKSHMI PONCE MD Procedure: XR chest 1V PA CHEST: CLINICAL HISTORY: dizziness and sob COMPARISON: 07/31/2021 The heart is normal in size. The lungs are clear. The pulmonary vasculature is normal. Mediastinum and hilar regions are unremarkable. No pleural effusions are seen. Visualized bones are intact. XR/XR chest 1V IMPRESSION: NEGATIVE CHEST. Impression dictated by: Donato Henriquez M.D. 04/07/2025 6:17 PM Dictation Location: [place] [address] Electronically authenticated by: [id number] Y Date: 04/07/2025 18:17
--- OUTSIDE RECORDS SUMMARY | 2025-04-07 17:54 | XMS_ITS | CCD ---
Author Organization [facility] Team Providers Care It Application Architect Name Role Phone POOL, MANDI E Unavailable [...] Unavailable JYOTI, DR MELINDA Teran Consulting Unavailable HEMMER, DR ELANA Gu Consulting Unavailable ZIGGY, DR WILLIAMSON Attending Unavailable ZIGGY, DR WILLIAMSON Admitting Unavailable BHASKAR, DR CONNELL Primary Care Unavailable KILLAWOG, DR LISETTE Navarro Consulting Unavailable ZIGGY, DR WILLIAMSON Consulting Unavailable Muro, GEOVANY Connell Primary Care Provider HARLEY Thacker Attending Provider Zuleima Thacker Unavailable Bhaskar, GEOVANY Connell Primary Care Provider [phone] MICHAEL Naranjo Attending Provider LyDO Marlin Attending Provider [phone] Marlin Eisenberg Admitting Unavailable Faina, Marlin Velazquez Attending Unavailable Ko Muro Primary [facility] Unavailable Vin Naranjo Admitting Unavailable Vin Naranjo Attending Unavailable Ko Muro [facility] Unavailable Ko Muro MD Primary Care Provider Ko Muro MD Unavailable [phone] ALEXANDR HELM Attending Unavailable ELANA RAM Attending Unavailable ELANA RAM Attending Unavailable JOSELYN ABARCA Attending Unavailable GAY MACIAS Attending Unavailable KO MURO Referring Unavailable KO MURO Attending Unavailable ELANA RAM Attending Unavailable Allergies Allergy Classification Reported Allergen(s) Allergy Type Date of Onset Reaction(s) Facility (20 sources) busPIRone Drug Allergy 2 Unknown [facility] Work Phone: (20 sources) varenicline Drug Allergy 3 [facility] Work Phone: (20 sources) Other Propensity to adverse reactions 2 Unknown [facility] Medications Current Medications Medication Drug Class(es) Dates Sig (Normalized) Sig (Original) ALPRAZolam 0.25 mg oral tablet (20 sources) Benzodiazepine Start: 11-03-2024 End: 05-04-2025 take 1 tablet by mouth twice daily as needed for anxiety ALPRAZolam (Xanax) 0.25 MG tablet Indications: Generalized anxiety disorder Take 1 tablet (0.25 mg) by mouth 2 (two) times a day as needed for anxiety 60 tablet 04/04/2025 05/04/2025 Active Start: 10-07-2024 End: 11-06-2024 take 1 tablet by mouth once ALPRAZolam (Xanax) 0.25 MG tablet Indications: Generalized anxiety disorder (CMS/HCC) Take 1 tablet (0.25 mg) by mouth every 12 (twelve) hours if needed for anxiety 60 tablet 10/07/2024 11/03/2024 Discontinued Start: 03-14-2024 End: 09-10-2024 take 1 tablet by mouth once ALPRAZolam (Xanax) 0.25 MG tablet Indications: Generalized anxiety disorder (CMS/HCC) Take 1 tablet (0.25 mg) by mouth every 12 (twelve) hours if needed for anxiety 60 tablet 08/11/2024 Active Start: 10-20-2023 take 1 tablet by bolivar th once daily at bedtime Alprazolam (Xanax) 0.25 mg tablet Active 0.25 MG PO Daily at bedtime October 20, 2023 12:00am Xanax Active cetirizine hydrochloride 10 mg oral tablet (20 sources) Histamine-1 Receptor Antagonist Start: 04-03-2025 take 1 tablet by mouth once daily cetirizine (ZyrTEC) 10 MG tablet Indications: Seasonal allergies Take 1 tablet (10 mg) by mouth Daily 100 tablet 3 04/03/2025 Active Start: 03-21-2024 take 1 tablet by bolivar th once daily cetirizine (ZyrTEC) 10 MG tablet Indications: Seasonal allergies TAKE 1 TABLET BY MOUTH DAILY at the same time each day 100 tablet 3 03/21/2024 Active diclofenac potassium 50 mg oral tablet (20 sources) Nonsteroidal Anti-inflammatory Drug Start: 09-05-2024 End: 09-05-2025 take 1 tablet by mouth in the morning diclofenac (Cataflam) 50 MG tablet Indications: Traumatic coccydynia Take 1 tablet (50 mg) by mouth in the morning and 1 tablet (50 mg) before bedtime. 60 tablet 1 09/05/2024 09/05/2025 Active doxycycline hyclate 100 mg oral capsule (6 sources) Tetracycline-class Drug Start: 02-06-2025 End: 02-13-2025 doxycycline (Vibramycin) 100 MG capsule Indications: Hidradenitis suppurativa Take 1 capsule (100 mg) by mouth in the morning and 1 capsule (100 mg) before bedtime. Do all this for 7 days. Take with at least 8 ounces (large glass) of water, do not lie down for 30 minutes after. 14 capsule 02/06/2025 02/13/2025 Active Start: 05-05-2024 End: 05-16-2024 doxycycline (Vibramycin) 100 MG capsule Indications: Cervicitis and endocervicitis Take 1 capsule (100 mg) by mouth in the morning and 1 capsule (100 mg) before bedtime. Do all this for 7 days. Take with at least 8 ounces (large glass) of water, do not lie down for 30 minutes after. 14 capsule 05/05/2024 05/16/2024 Discontinued (Therapy completed) loratadine 10 mg oral tablet (1 source) take 1 tablet by mouth once daily Loratadine 10 MG take 1 tablet by mouth once daily Oral for 30 Active meclizine hydrochloride 25 mg oral tablet (20 sources) Antiemetic Start: 025 End: 026 take 1 tablet by mouth three times daily as needed for dizziness meclizine (Antivert) 25 MG tablet Indications: Vertigo Take 1 tablet (25 mg) by mouth 3 (three) times a day as needed for dizziness 30 tablet 2 09/05/2024 09/05/2025 Active 24 hr metoprolol succinate 50 mg extended release oral tablet (20 sources) beta-Adrenergic Davian Start: 024 take 3 tablets by mouth once daily metoprolol succinate XL (Toprol-XL) 50 MG 24 hr tablet Indications: Supraventricular tachycardia (HCC) take 3 tablet by mouth once daily 300 tablet 3 07/13/2024 Active Start: 11-20-2023 take 50 mg by mouth once daily Metoprolol Succinate Active 50 MG PO Daily November 20, 2023 12:00am Start: 06-22-2018 End: 10-20-2023 take 50 mg by mouth every six hours Metoprolol Tartrate Discontinued 50 MG PO Q6H June 22, 2018 1:00am October 20, 2023 3:08pm Metoprolol Succi simba Active naloxone hydrochloride 40 mg/ml nasal spray (20 sources) Opioid Antagonist Start: 08-11-2024 naloxone (Na rcan) 4 mg/0.1 mL nasal spray Indications: Uncomplicated opioid use Administer 2 sprays (8 mg) into affected nostril(s) if needed for opioid reversal 2 each 08/11/2024 Active Start: 08-11-2024 End: 08-11-2025 naloxone (Narcan) 4 mg/0.1 m L nasal spray Indications: Uncomplicated opioid use Administer 1 spray (4 mg) into affected nostril(s) if needed for opioid reversal May repeat every 2-3 minutes if needed, alternating nostrils, until medical assistance becomes available. 2 each 08/11/2024 08/11/2025 Active Start: 07-14-2022 End: 05-05-2024 naloxone (Narcan) 4 mg/0.1 m L nasal spray Administer 4 mg into affected nostril(s) if needed. 07/14/2022 05/05/2024 Discontinued ondansetron 4 mg disintegrating oral tablet (2 sources) Serotonin-3 Receptor Antagonist Start: 12-06-2024 End: 12-13-2024 take 1 tablet by mouth every eight hours as needed for nausea and vomiting and nausea and nausea ondansetron ODT (Zofran-ODT) 4 MG disintegrating tablet Indications: Nausea Take 1 tablet (4 mg) by mouth every 8 (eight) hours if needed for nausea or vomiting for up to 7 days 21 tablet 12/06/2024 12/13/2024 Active 12 hr orphenadrine citrate 100 mg extended release oral tablet (20 sources) Muscle Relaxant Start: 03-14-2024 take 1 tablet by mouth twice daily as needed for muscle spasms orphenadrine (Norflex) 100 MG 12 hr tablet Indications: Spinal stenosis in cervical region Take 1 tablet (100 mg) by mouth 2 (two) times a day as needed for muscle spasms Do not crush, chew, or split. 60 tablet 1 03/14/2024 Active predniSONE 10 mg oral tablet (2 sources) Start: 11-30-2024 End: 12-03-2024 take 1 tablet by mouth in the morning predniSONE (Deltasone) 10 MG tablet Indications: Enlarged lymph node in neck Take 1 tablet (10 mg) by mouth in the morning and 1 tablet (10 mg) at noon. Do all this for 3 days. Take with breakfast and with lunch. 6 tablet 11/30/2024 12/03/2024 Active Wrist Splint/Right XL - (1 source) Start: 08-01-2022 Wrist Splint/Right XL - as directed Jul, Active zolpidem tartrate 10 mg oral tablet (20 sources) gamma-Aminobutyri c Acid-ergic Agonist Start: 01-09-2025 End: 02-08-2025 zolpidem (Ambien) 10 MG tablet Indications: Primary insomnia Take 0.5-1 tablets (5-10 mg) by mouth as needed at bedtime for sleep 30 tablet 01/09/2025 Active Start: 11-09-2024 End: 12-09-2024 zolpidem (Ambien) 10 MG tabl et Indications: Primary insomnia Take 0.5-1 tablets (5-10 mg) by mouth as needed at bedtime for sleep 30 tablet 11/09/2024 12/09/2024 Active Start: 03-14-2024 zolpidem (Ambi en) 10 MG tablet Indications: Primary insomnia Take [...] / HYDROcodone bitartrate 5 mg oral tablet (20 sources) Opioid Agonist Start: 01-09-2025 End: 05-05-2025 take 1 tablet by mouth every six hours for pain HYDROcodone-acetami nophen ([place]) 5-325 MG tablet Indications: Spinal stenosis in cervical region Take 1 tablet by mouth every 6 (six) hours if needed for severe pain 120 tablet 03/07/2025 04/05/2025 Discontinued (Reorder) Start: 03-14-2024 End: 01-06-2025 take 1 tablet by mouth every six hours for pain HYDROcodone-acetaminophen ([place]) 5-325 MG tablet Indications: Spinal stenosis in cervical region Take 1 tablet by mouth every 6 (six) hours if needed for severe pain 120 tablet 12/07/2024 01/06/2025 Discontinued (Reorder) Start: 07-08-2018 End: 07-15-2018 take 1 tablet by mouth every six hours Hydrocodone-Acetaminophen Discontinued 1 TAB PO Q6H 28 7 [...] bedtime if needed External for 30 Active fluconazole 150 mg oral tablet (4 sources) [...] 22, 2018 1:00am October 20, 2023 3:08pm 24 hr metFORMIN hydrochloride 500 mg extended release oral tablet (20 sources) Biguanide Start: 05-05-2024 End: 02-06-2025 take 1 tablet by mouth every twenty-four hours at mealtime metFORMIN XR (Glucophage-XR) 500 MG 24 hr tablet Indications: Encounter for weight management Take 1 tablet (500 mg) by mouth in the evening. Take with meals Do not crush, chew, or split. 90 tablet 1 05/05/2024 02/06/2025 Discontinued (Other) 24 hr nicotine 0.875 mg/hr transdermal system (4 sources) Cholinergic Nicotinic Agonist Start: 04-27-2023 End: [...] Classification Problem Date Documented Da te Episodic/Chronic Administrative/social admission (2 sources) Patient encounter status; Translations: [Persons encountering health services in other specified circumstances] 05-05-2024 Episodic Anxiety disorders (20 sources) Anxiety disorder, unspecified; Translations: [Generalized anxiety disorder] Onset: 2 12-16-2022 Chronic Cardiac dysrhythmias (20 sources) Supraventricular tachycardia; Translations: [Supraventricular tachycardia] Onset: 3 12-24-2022 Chronic Conditions associated with dizziness or vertigo (5 sources) Vertigo; Translations: [Dizziness and giddiness] 09-05-2024 Episodic Esophageal disorders (1 source) Gastro-esophageal reflux disease without esophagitis; Translations: [GERD WITHOUT ESOPHAGITIS] Onset: 2 Chronic Genitourinary congenital anomalies (20 sources) Aplasia of body of uterus; Translations: [Agenesis and aplasia of uterus] Onset: 4 10-20-2023 Chronic Heart valve disorders (20 sources) Mitral valve prolapse; Translations: [Nonrheumatic mitral (valve) prolapse] Onset: 3 04-08-2023 Chronic Inflammatory diseases of female pelvic organs (2 sources) Cervicitis and endocervicitis; Translations: [Inflammatory disease of cervix uteri] 05-05-2024 Episodic Lymphadenitis (2 sources) Lymphadenopathy of head AND/OR neck; Translations: [Localized enlarged lymph nodes] 11-30-2024 Episodic Malaise and fatigue (20 sources) Fatigue; Translations: [Chronic fatigue, unspecified] Onset: 3 12-24-2022 Chronic Menstrual disorders (7 sources) Amenorrhea, unspecified; Translations: [Excessive and frequent menstruation with irregular cycle] Onset: 7 Chronic Miscellaneous mental health disorders (5 sources) Primary insomnia; Translations: [Primary insomnia] 11-30-2024 Chronic Mood disorders (20 sources) Moderate major depression ; Translations: [Major depressive disorder, single episode, moderate] Onset: 3 12-24-2022 Chronic Neoplasms of unspecified nature or uncertain behavior (1 source) Neoplastic disease; Translations: [Neoplasm of unspecified behavior of bone, soft tissue, and skin] Episodic Osteoarthritis (20 sources) Arthritis; Translations: [Unspecified osteoarthritis, unspecified site] Onset: 3 12-24-2022 Chronic Other ear and sense organ disorders (20 sources) Hearing loss; Translations: [Unspecified hearing loss, unspecified ear] Onset: 3 12-24-2022 Chronic Other ear and sense organ disorders (2 sources) Bilateral hearing loss; Translations: [Unspecified hearing loss, bilateral] 02-07-2025 Chronic Other eye disorders (2 sources) Pain in eye; Translations: [Ocular pain, right eye] 11-30-2024 Episodic Other female genital disorders (5 sources) Unspecified dyspareunia; Translations: [UNSPECIFIED DYSPAREUNIA] Onset: 2 Chronic Other female genital disorders (4 sources) Abnormal uterine and vaginal bleeding, unspecified; Translations: [ABNORMAL UTERINE VAGINAL BLEED UNS] Onset: 2 Chronic Other female genital disorders (20 sources) Abnormal uterine bleeding; Translations: [Other specified abnormal uterine and vaginal bleeding] Onset: 3 12-24-2022 Chronic Other gastrointestinal disorders (1 source) Diarrhea, unspecified; Translations: [Diarrhea, unspecified] Onset: 4 Episodic Other nervous system disorders (1 source) Carpal tunnel syndrome, right upper limb Chronic Other nervous system disorders (7 sources) Chronic pain; Translations: [Other chronic pain] Onset: 5 02-07-2025 Chronic Other non-traumatic joint disorders (1 source) Pain in right wrist Episodic Other nutritional; endocrine; and metabolic disorders (2 sources) Obese class I; Translations: [Obesity, class 1] 09-05-2024 Chronic Other nutritional; endocrine; and metabolic disorders (2 sources) Weight increased; Translations: [Abnormal weight gain] 09-05-2024 Episodic Other skin disorders (9 sources) Hidradenitis suppurativa; Translations: [Hidradenitis suppurativa] Onset: 5 02-06-2025 Episodic Other upper respiratory disease (20 sources) Seasonal allergy; Translations: [Other seasonal allergic rhinitis] Onset: 3 12-24-2022 Chronic Residual codes; unclassified (14 sources) Sleep apnea; Translations: [Sleep apnea, unspecified] Onset: 4 11-30-2024 Chronic Spondylosis; intervertebral disc disorders; other back problems (20 sources) Degeneration of cervical intervertebral disc; Translations: [Other cervical disc degeneration, unspecified cervical region] Onset: 3 12-24-2022 Chronic Spondylosis; intervertebral disc disorders; other back problems (20 sources) Spinal stenosis in cervical region; Translations: [Spinal stenosis, cervical region] Onset: 3 12-24-2022 Episodic Substance-related disorders (20 sources) Nicotine dependence, cigarettes, uncomplicated; Translations: [Tobacco dependence syndrome] Onset: 2 12-24-2022 Chronic Substance-related disorders (1 source) Narcotic drug user; Translations: [Opioid use, unspecified, uncomplicated] 08-11-2024 Episodic Unclassified (4 sources) 13 weeks gestation of [...] infection (1 source) COVID-19; Translations: [COVID-19] Onset: Past or Other Problems Problem Classification Problem Date Documented Da te Episodic/Chronic Abdominal hernia (20 sources) Umbilical hernia; Translations: [Umbilical hernia without obstruction or gangrene] Onset: 12-24-2022 Resolved: 02-07-2025 12-24-2022 Episodic Abdominal pain (20 sources) Lower abdominal pain; Translations: [Lower abdominal pain, unspecified] Onset: 10-29-2023 Resolved: 02-07-2025 10-20-2023 Episodic Cardiac dysrhythmias (20 sources) Palpitations; Translations: [Palpitations] Onset: 10-22-2021 04-08-2023 Episodic Contraceptive and procreative management (4 sources) Encounter for sterilization; Translations: [ENCOUNTER FOR STERILIZATION] Onset: 02-28-2022 Episodic Genitourinary symptoms and ill-defined conditions (2 sources) Dysuria; Translations: [Other symptoms and signs involving the genitourinary system] Onset: 09-30-2017 Episodic Mood disorders (20 sources) Mood disorders Onset: 12-24-2022 12-24-2022 Nonspecific chest pain (20 sources) Chest pain, unspecified; Translations: [Chest pain] Onset: 07-31-2021 Episodic Normal and/or delivery (5 sources) Encounter for supervision of normal , unspecified, first trimester; Translations: [Encounter for full-term uncomplicated delivery] Onset: 01-29-2017 Episodic Other aftercare (1 source) Other fci (current) drug therapy; Translations: [OTH MCC CURRENT DRUG THERAPY] Onset: 03-12-2022 Episodic Other complications of (3 sources) Outcome of delivery, unspecified; Translations: [Supervision of other high risk pregnancies, third trimester] Onset: 06-10-2017 Episodic Other connective tissue disease (4 sources) Pain in right leg; Translations: [PAIN IN RIGHT LEG] Onset: 03-11-2022 Episodic Other connective tissue disease (20 sources) Ganglion cyst of right wrist; Translations: [Ganglion, right wrist] Onset: 12-24-2022 12-24-2022 Episodic Other ear and sense organ disorders (20 sources) Bilateral tinnitus; Translations: [Tinnitus, bilateral] Onset: 12-24-2022 12-24-2022 Episodic Other female genital disorders (20 sources) Abnormal vaginal bleeding; Translations: [Abnormal uterine and vaginal bleeding, unspecified] Onset: 05-24-2021 Resolved: 02-07-2025 04-08-2023 Chronic Other gastrointestinal disorders (20 sources) Constipation alternates with diarrhea; Translations: [Other specified symptoms and signs involving the digestive system and abdomen] Onset: 05-16-2024 10-20-2023 Episodic Other gastrointestinal disorders (20 sources) H/O: abdominal hernia; Translations: [Personal history of other diseases of the digestive system] Onset: 05-16-2024 10-20-2023 Episodic Other gastrointestinal disorders (4 sources) Other specified symptoms and signs involving the digestive system and abdomen; Translations: [Other symptoms involving digestive system] Onset: 10-29-2023 10-20-2023 Episodic Other lower respiratory disease (1 source) Personal history of pneumonia (recurrent); Translations: [PERSONAL HX OF PNEUMONIA RECURRENT] Onset: 03-12-2022 Episodic Other lower respiratory disease (20 sources) Cough; Translations: [Cough] Onset: 04-08-2023 Resolved: 02-07-2025 04-08-2023 Episodic Other lower respiratory disease (14 sources) Dyspnea on exertion; Translations: [Other forms of dyspnea] Onset: 06-01-2024 11-30-2024 Episodic Other nutritional; endocrine; and metabolic disorders (20 sources) Overweight; Translations: [Overweight] Onset: 12-24-2022 12-24-2022 Episodic Other screening for suspected conditions (not mental disorders or infectious disease) (20 sources) Echocardiogram abnormal; Translations: [Abnormal findings on [...] STATES] Onset: 03-12-2022 Episodic Residual codes; unclassified (20 sources) Insomnia; Translations: [Insomnia, unspecified] Onset: 12-24-2022 12-24-2022 Episodic Residual codes; unclassified (20 sources) Family history of cardiac disorder; Translations: [Family history of ischemic heart disease and other diseases of the circulatory system] Onset: 02-09-2024 02-09-2024 Episodic Residual codes; unclassified (14 sources) Tobacco user; Translations: [Tobacco use] Onset: 06-01-2024 11-30-2024 Episodic Results Test Name Value Interpretation Reference Range Facility Office Visiton 06-01-2024 Follow-up visit [id number] Kate Hazel 1980 F Date Provider Department Center 06/01/2024 [id number] HELM CARD E[facility]en [facility] Family History Problem Relation Age of Onset Coronary artery disease Mother Stroke Mother Diabetes Maternal Grandmother Heart attack Maternal Grandfather Family Status - Relation Status Age at Mother Maternal Grandmother Maternal Grandfather Level of Service:36318 MI OFFICE/OUTPATIENT NEW MODERATE MDM 45 MINUTES Reason for Visit and Comments: Palpitations [049451] - Holter monitor 10/24/2021: Sinus rhythm with rare isolated PACs and PVCs. No significant arrhythmias seen. Patient events corresponded to sinus rhythm. Not as bad as they used to be Shortness of Breath [953459] - All the time Chest Pain [424659] - Worse at night Normal [facility] IGP,APTIMA HPV,AGE GDLNon AGE GDLN ACOG TESTING Note . [facility] Comment on above: TESTS RESULT FLAG UN ITS REF RANGE LAB Clinician Provided Cytology Information Source.............Cervix;Endocervix No. of containers..01 ThinPrep Vial Age Algo ACOG Shanae... FLAG LEGEND: L-Low Normal,H-High Normal,LL-Alert Low,HH-Alert High <-Panic Low,>-Panic High,A-Abnormal,AA-Critical Abnormal Performed at: 01 =[address] [id number] Claire Pinedo MD, HPV APTIMA Negative Negative [facility] Comment on above: This nucleic acid am plification test detects fourteen high- risk HPV types (16,18,31,33,35,39,45,51,52,56,58,59,66,68) without differentiation. Performed at: =[facility] [address] [id number] Dietary Aide: Claire Pinedo MD, Phone: [phone] Performed at: [facility] [address] [id number] Dietary Aide: Claire Pinedo MD, Phone: [phone] IGP, APTIMA HPV, RFX 16/18,45 Note . [facility] Comment on above: TESTS RESULT FLAG UN ITS REF RANGE LAB DIAGNOSIS: 02 NEGATIVE FOR INTRAEPITHELIAL LESION OR MALIGNANCY. REACTIVE CELLULAR CHANGES AND/OR REPAIR ARE PRESENT. Specimen adequacy: 02 Satisfactory for evaluation. Endocervical and/or squamous metaplastic cells (endocervical component) are present. Performed by: 02 Jyoti Garner, Media Manager (ASCP) Electronically si... Ingris Piper MD, Pathologist [...] Low,>-Panic High,A-Abnormal,AA-Critical Abnormal Performed at: [address] [address] Claire Pinedo MD, BRUSH-SPATULA CERVIX ENDOCERVIX [facility] HCG ( test) IA.cooper d Ql (U)Ordered By: Marlin Eisenberg on 11-20-2023 HCG ( test) Ql (U) Negative [facility] HCG,Urineon 11-20-2023 Beta HCG ( test) Ql (U) Negative Normal [facility] Comment on above: Result Comment: PERF ORMED BY: [place] [address] PATHOLOGIST POLICE WORKER SHOBHA LANDIN M.D. Performed By: #### U HCG #### [address] Niranjan 11-20-2023 L Specimen: [id number] Received: 11/20/23 Status: ISSAC Marilia Num: [id number] Spec Type: Surgical Subm Dr: Marlin Eisenberg, DO Tissues: A Colon Biopsy (RANDOM RT) B Colon Biopsy (RANDOM LT) C Colon Biopsy (SIGMOID POLYP) Procedures: HE/6, Gross/Micro L4/3 Age/ Patient Sex Location Account Attending Physician YaseminKate 43/F [id number] Marlin Eisenberg DO SPEC NUM: [id number] RECD: 11/20/23 STATUS: ISSAC CAPELLAN NUM: [id number] GOVIND: 11/20/23- SUBM DR: Marlin Eisenberg DO ENTERED: 11/20/[address] [facility] [address]: SPEC TYPE: Surgical DEPT: S ORDERED: [...] fragment, entirely submitted in C1. ---- Specimen: [id number] Received: 11/20/23 Status: ISSAC Capellan Num: [id number] Spec Type: Surgical Subm Dr: Marlin Eisenberg DO Tissues: A Colon Biopsy (RANDOM RT) B Colon Biopsy (RANDOM LT) C Colon Biopsy (SIGMOID POLYP) Procedures: MICHELLEIrving/Micro L4/3 ---- Patient: Kate Hazel [id number] (Continued) ---- Specimen: [id number] Received: 11/20/23 (Continued) Gross Description (Continued) Signed (signature on file) Lisette Cosby MD 11/23/23 1437 ---- Specimen: [id number] Received: 11/20/23 Status: ISSAC Capellan Num: [id number] Spec Type: Surgical Subm Dr: Marlin Eisenberg DO Tissues: A Colon Biopsy (RANDOM RT) B Colon Biopsy (RANDOM LT) C Colon Biopsy (SIGMOID POLYP) Procedures: Irving/Micro L4/3 ---- Patient: Kate Hazel [id number] (Continued) ---- Specimen: [id number] Received: 11/20/23 (Continued) Gross Description (Continued) Clinical history: Constipation/diarrhea. Rule out microscopic colitis CPT Codes 61624d9 ---- ---- Specimen: [id number] Received: 11/20/23 Status: ISSAC Capellan Num: [id number] Spec Type: Surgical Subm Dr: Marlin Eisenberg DO Tissues: A Colon Biopsy (RANDOM RT) B Colon Biopsy (RANDOM LT) C Colon Biopsy (SIGMOID POLYP) Procedures: HE/6, Gross/Micro L4/3 ---- Patient: Kate Hazel [id number] (Continued) ---- Signed (signature on file) Lisette Cosby MD 11/23/23 1437 Normal [facility] CT abdomen pelvis w marisol CT abdomen pelvis w [facility] [place] [address] CT Scan Report Signed Patient: Kate Hazel MR#: [id number] : 1980 Acct:[id number] Age/Sex: 43 / F ADM Date: 10/29/23 Loc: CT Room: Type: [facility] Attending Dr: Vin Naranjo APRN Copies to: [...] Hall Jr., D.OWestley10/29/2023 2:04 PM Dictation Location: RADIO-PC-14 Transcribed By: JOEL 10/29/23 1404 Dictated By: Tee Hall Jr, DO 10/29/23 1402 Signed By: 10/29/23 1404 Normal [facility] XR wrist RT min 3V*on 2022 XR wrist RT min 3V* [facility] [employer] Other XR wrist RT min 3V* [facility] [employer] Other XR wrist RT min 3V* [address] [place] [address] [employer] [facility] [employer] Other XR wrist RT min 3V* [place] [address] [employer] Other XR wrist RT min 3V* XRay Report [employer] Other XR wrist RT min 3V* Signed [employer] Other XR wrist RT min 3V* Patient: Kate Hazel MR#: [id number] [employer] Other XR wrist RT min 3V* : 1980 Acct:[id number] [employer] Other XR wrist RT min 3V* Age/Sex: 41 / F ADM Date: 08/01/22 [employer] Other XR wrist RT min 3V* Loc: XDUCLY Room: Type: [facility] [employer] Other XR wrist RT min 3V* Attending Dr: Zuleima SOUZA [employer] Other XR wrist RT min 3V* Copies to: HARLEY Nichole [employer] Other XR wrist RT min 3V* Ordering Provider: HARLEY Nichole [employer] Other XR wrist RT min 3V* Date of Service: 08/01/22 [employer] Other XR wrist RT min 3V* XR/XR wrist RT min 3V*: Right wrist pain [employer] Other XR wrist RT min 3V* XR wrist RT min 3V* 08/01/2022 5:40 PM [employer] Other XR wrist RT min 3V* SIGNS AND SYMPTOMS: Fall with pain along the palmar aspect of the right wrist [employer] Other XR wrist RT min 3V* PROTOCOL: Frontal, lateral, and oblique radiographs of the right breast [employer] Other XR wrist RT min 3V* COMPARISON: None [employer] Other XR wrist RT min 3V* FINDINGS: [employer] Other XR wrist RT min 3V* The radiocarpal join t is preserved. There is no fracture or dislocation. No significant soft tissue [employer] Other XR wrist RT min 3V* swelling. [employer] Other XR wrist RT min 3V* XR/XR wrist RT min 3V* [employer] Other XR wrist RT min 3V* IMPRESSION: [employer] Other XR wrist RT min 3V* No acute bony injury or significant degenerative change. [employer] Other XR wrist RT min 3V* Impression dictated by: Maurilio Driver M.D.08/01/2022 5:57 PM [employer] Other XR wrist RT min 3V* Dictation Location: [place] [address] [employer] Other XR wrist RT min 3V* Transcribed By: JOEL 08/01/22 1757 [employer] Other XR wrist RT min 3V* Dictated By: Maurilio Driver II, MD 08/01/22 175 [employer] Other XR wrist RT min 3V* Signed By: [employer] Other XR wrist RT min 3V* 08/01/221756 No [employer] Other ESTRONEon 04-30-2022 Estrone, Serum 47 pg/mL Normal 27-231 [facility] Comment on above: Result Comment: Rang e Adult (Premenopausal) 27 - 231 Menstrual Cycle (1-10 days) 19 - 149 Menstrual Cycle (11-20 days) 32 - 176 Menstrual Cycle (21-30 days) 37 - 200 Performed By: #### R SPLUS #### [facility] [address] [address] [address] Johnny Johnson TESTOSTERONE, FREE,DIRECT, T OTALon 04-30-2022 Free Testosterone(Direct ) 3.2 pg/mL Normal 0.0-4.2 [facility] Comment on above: Result Comment: Perf ormed at: BN Performed By: #### R SPLUS #### [facility] [address] [address] [address] Johnny Johnson Testosterone [Mass/Vol] 41 ng/dL Normal 8-60 [facility] Comment on above: Result Comment: Perf ormed at: CB Performed By: #### R SPLUS #### [facility] [address] [address] [address] Johnny Johnson SEROTONINon 10-04-2022 Serotonin, Serum 185 ng/mL Normal 31-207 [facility] Comment on above: Performed By: #### R SPLUS #### [facility] [address] [place] [address] Dr. Johnny Johnson VIT D 1 25 DIHYDROXYon 04-28 Calcitriol(1,25 di-OH Vit D) 33.4 pg/mL Normal 24.8-81.5 [facility] Comment on above: Result Comment: Pl ease note reference interval change Performed By: #### H CGSUB #### [facility] [address] [address] [address] Johnny Johnson CORTISOLon 04-26-2022 Cortisol 18.0 ug/dL Normal [facility] Comment on above: Result Comment: Chris isol AM 6.2 - 19.4 Cortisol PM 2.3 - 11.9 Performed By: #### H CGSUB #### [facility] [address] [place] [address] Dr. Johnny Johnson DHEA-SULFATEon 04-26-2022 DHEA-Sulfate 124.0 ug/dL Normal 57.3-279.2 [facility] Comment on above: Performed By: #### D HEASUL #### [facility] [address] [place] [address] Dr. Johnny Johnson ESTRADIOLon 04-26-2022 Estradiol 111.0 pg/mL Normal [facility] Comment on above: Result Comment: Adul t Female: Follicular phase 12.5 - 166.0 Ovulation phase 85.8 - 498.0 Luteal phase 43.8 - 211.0 Postmenopausal <6.0 - 54.7 1st trimester 215.0 - >4300.0 Stacie ECLIA methodology Performed By: #### E STRADI #### [facility] [address] [place] [address] Dr. Johnny Johnson INSULINon 04-26-2022 Insulin 12.0 uIU/mL Normal 2.6-24.9 [facility] Comment on above: Performed By: #### H CGSUB #### [facility] [address] [place] [address] Dr. Johnny Johnson PROGESTERONEon 04-26-2022 Progesterone 0.4 ng/mL Normal [facility] Comment on above: Result Comment: Foll icular phase 0.1 - 0.9 Luteal phase 1.8 - 23.9 Ovulation phase 0.1 - 12.0 First trimester 11.0 - 44.3 Second trimester 25.4 - 83.3 Third trimester 58.7 - 214.0 Postmenopausal 0.0 - 0.1 Performed By: #### P ROGES #### [facility] [address] [place] [address] Dr. Johnny Johnson GLUCOSE BLOODon 04-25-2022 Glucose [Mass/Vol] 95 mg/dL Normal 74-106 [facility] Comment on above: Performed By: #### G MONO #### [facility] [address] [place] [address] Dr. Johnny Johnson HCG-BETA SUBUNIT QUANTon hCG,Beta Subunit,Qnt,Serum <1 Normal [facility] Comment on above: Result Comment: Fema le (Non-) 0 - 5 (Postmenopausal) 0 - 8 . Female () Weeks of Gestation 3 6 - 71 4 10 - 750 5 217 - 7138 6 044 - 36090 7 [phone] -[phone] 8 39077 -541505 9 33628 -233077 10 59819 -504718 12 76584 -718722 14 06694 - 05700 15 45844 - 80003 16 6477 - 44992 17 1382 - 36271 18 7831 - 46404 Stacie ECLIA methodology Performed By: #### H CGSUB #### [facility] [address] [place] [address] Dr. Johnny Johnson CBC AUTO DIFFon 02-26-2022 BASO # 0.0 103/ul Normal 0.0-0.1 [facility] Comment on above: Performed By: #### R SPLUS #### [facility] [address] [place] [address] Dr. Johnny Johnson Basophils/100 WBC (Bld) 0.7 % Normal 0.2-2.0 [facility] Comment on above: Performed By: #### R SPLUS #### [facility] [address] [place], [place] [id number] Dr. Johnny Johnson EO # 0.1 103/ul Normal 0.0-0.7 [facility] Comment on above: Performed By: #### R SPLUS #### [facility] [address] [place] [address] Dr. Johnny Johnson Eosinophils/100 WBC (Bld) 1.7 % Normal 0.9-7.0 [facility] Comment on above: Performed By: #### R SPLUS #### [facility] [address] [place] [address] Dr. Johnny Johnson Erythrocyte distribution width (RBC) [Ratio] 13.4 % Normal 11.0-15.0 [facility] Comment on above: Performed By: #### R SPLUS #### [facility] [address] [place] [address] Dr. Johnny Johnson Hematocrit (Bld) [Volume fraction] 42.4 % Normal 36.0-48.0 [facility] Comment on above: Performed By: #### R SPLUS #### [facility] [address] [place] [address] Dr. Johnny Johnson Hemoglobin (Bld) [Mass/Vol] 14.0 g/dL Normal 12.0-16.0 [facility] Comment on above: Performed By: #### R SPLUS #### [facility] [address] [place] [address] Dr. Johnny Johnson IG # 0.01 10e3/ul Normal 0.00-0.03 [facility] Comment on above: Performed By: #### R SPLUS #### [facility] [address] [place] [address] Dr. Johnny Johnson IG % 0.2 % Normal 0.0-0.5 [facility] Comment on above: Performed By: #### R SPLUS #### [facility] [address] [place] [address] Dr. Johnny Johnson LYMPH # 2.4 103/ul Normal 1.2-3.8 [facility] Comment on above: Performed By: #### R SPLUS #### [facility] [address] [address] [address] Johnny Johnson Lymphocytes/100 WBC (Bld) 41.4 % Normal 20.5-60.0 [facility] Comment on above: Performed By: #### R SPLUS #### [facility] [address] [place] [address] Dr. Johnny Johnson MANUAL DIFF REQ NO Normal [facility] Comment on above: Performed By: #### R SPLUS #### [facility] [address] [place] [address] Dr. Johnny Johnson MCH (RBC) [Entitic mass] 29.9 pg Normal 26.7-34.0 [facility] Comment on above: Performed By: #### R SPLUS #### [facility] [address] [place] [address] Dr. Johnny Johnson MCHC (RBC) [Mass/Vol] 33.0 g/dL Normal 29.9-35.2 [facility] Comment on above: Performed By: #### R SPLUS #### [facility] [address] [place] [address] Dr. Johnny Johnson MCV (RBC) [Entitic vol] 90.6 fL Normal 81.0-99.0 [facility] Comment on above: Performed By: #### R SPLUS #### [facility] [address] [place] [address] Dr. Johnny Johnson MONO # 0.4 103/ul Normal 0.3-0.8 [facility] Comment on above: Performed By: #### R SPLUS #### [facility] [address] [place] [address] Dr. Johnny Johnson Monocytes/100 WBC (Bld) 6.6 % Normal 1.7-12.0 [facility] Comment on above: Performed By: #### R SPLUS #### [facility] [address] [place] [address] Dr. Johnny Johnson NEUT # 2.9 103/ul Normal 1.4-6.5 [facility] Comment on above: Performed By: #### R SPLUS #### [facility] [address] [place] [address] Dr. Johnny Johnson Neutrophils/100 WBC (Bld) 49.4 % Normal 43.0-75.0 [facility] Comment on above: Performed By: #### R SPLUS #### [facility] [address] [address] [address] Johnny Johnson Platelet mean volume (Bld) [Entitic vol] 10.5 fL Normal 9.5-13.5 [facility] Comment on above: Performed By: #### R SPLUS #### [facility] [address] [place] [address] Dr. Johnny Johnson PLT 221 103/ul Normal 150-450 [facility] Comment on above: Performed By: #### R SPLUS #### [facility] [address] [address] [address] Johnny Johnson RBC 4.68 106/ul Normal 4.20-5.40 [facility] Comment on above: Performed By: #### R SPLUS #### [facility] [address] [address] [address] Johnny Johnson WBC 5.9 103/ul Normal 4.0-11.0 [facility] Comment on above: Performed By: #### R SPLUS #### [facility] [address] [place] [address] Dr. Johnny Johnson [facility]on SARS-CoV-2 (COVID-19) RNA ANATOLY+probe Ql (Unsp spec) Not detected Normal NOT DETECTED [facility] Comment on above: Result Comment: This test is not yet approved or cleared by the [place] FDA. When there are no FDA-approved or cleared tests available, and other criteria are met, FDA can make tests available under an emergency access mechanism called an Emergency Use Authorization (EUA). The EUA for this test is supported by the [place] of Health and Human Service's (HHS's) declaration [...] SARS-CoV-2. Performed By: #### R SPLUS #### [facility] [address] [place] [address] Dr. Johnny Johnson US PELVIS AND TRANSVAGon [...] LISETTE HAIRSTON Date: 2021-11-18 17:12 Normal [facility] CBC AUTO DIFFon 11-15-2021 BASO # 0.0 103/ul Normal 0.0-0.1 [facility] Comment on above: Performed By: #### H CGSUB #### [facility] [address] [place] [address] Dr. Johnny Johnson Basophils/100 WBC (Bld) 0.3 % Normal 0.2-2.0 [facility] Comment on above: Performed By: #### H CGSUB #### [facility] [address] [place] [address] Dr. Johnny Johnson EO # 0.1 103/ul Normal 0.0-0.7 [facility] Comment on above: Performed By: #### H CGSUB #### [facility] [address] [place] [address] Dr. Johnny Johnson Eosinophils/100 WBC (Bld) 1.1 % Normal 0.9-7.0 [facility] Comment on above: Performed By: #### H CGSUB #### [facility] [address] [place] [address] Dr. Johnny Johnson Erythrocyte distribution width (RBC) [Ratio] 13.1 % Normal 11.0-15.0 [facility] Comment on above: Performed By: #### H CGSUB #### [facility] [address] [place] [address] Dr. Johnny Johnson Hematocrit (Bld) [Volume fraction] 40.2 % Normal 36.0-48.0 [facility] Comment on above: Performed By: #### H CGSUB #### [facility] [address] [place] [address] Dr. Johnny Johnson Hemoglobin (Bld) [Mass/Vol] 13.1 g/dL Normal 12.0-16.0 [facility] Comment on above: Performed By: #### H CGSUB #### [facility] [address] [place] [address] Dr. Johnny Johnson IG # 0.02 10e3/ul Normal 0.00-0.03 [facility] Comment on above: Performed By: #### H CGSUB #### [facility] [address] [place] [address] Dr. Johnny Johnson IG % 0.2 % Normal 0.0-0.5 [facility] Comment on above: Performed By: #### H CGSUB #### [facility] [address] [place] [address] Dr. Johnny Johnson LYMPH # 2.2 103/ul Normal 1.2-3.8 [facility] Comment on above: Performed By: #### H CGSUB #### [facility] [address] [place] [address] Dr. Johnny Johnson Lymphocytes/100 WBC (Bld) 25.1 % Normal 20.5-60.0 [facility] Comment on above: Performed By: #### H CGSUB #### [facility] [address] [place] [address] Dr. Johnny Johnson MANUAL DIFF REQ NO Normal [facility] Comment on above: Performed By: #### H CGSUB #### [facility] [address] [place] [address] Dr. Johnny Johnson MCH (RBC) [Entitic mass] 30.0 pg Normal 26.7-34.0 [facility] Comment on above: Performed By: #### H CGSUB #### [facility] [address] [place] [address] Dr. Johnny Johnson MCHC (RBC) [Mass/Vol] 32.6 g/dL Normal 29.9-35.2 [facility] Comment on above: Performed By: #### H CGSUB #### [facility] [address] [place] [address] Dr. Johnny Johnson MCV (RBC) [Entitic vol] 92.0 fL Normal 81.0-99.0 [facility] Comment on above: Performed By: #### H CGSUB #### [facility] [address] [place] [address] Dr. Johnny Johnson MONO # 0.6 103/ul Normal 0.3-0.8 [facility] Comment on above: Performed By: #### H CGSUB #### [facility] [address] [place] [address] Dr. Johnny Johnson Monocytes/100 WBC (Bld) 6.5 % Normal 1.7-12.0 [facility] Comment on above: Performed By: #### H CGSUB #### [facility] [address] [place] [address] Dr. Johnny Johnson NEUT # 5.9 103/ul Normal 1.4-6.5 [facility] Comment on above: Performed By: #### H CGSUB #### [facility] [address] [place] [address] Dr. Johnny Johnson Neutrophils/100 WBC (Bld) 66.8 % Normal 43.0-75.0 [facility] Comment on above: Performed By: #### H CGSUB #### [facility] [address] [place] [address] Dr. Johnny Johnson Platelet mean volume (Bld) [Entitic vol] 10.7 fL Normal 9.5-13.5 [facility] Comment on above: Performed By: #### H CGSUB #### [facility] [address] [place] [address] Dr. Johnny Johnson PLT 222 103/ul Normal 150-450 [facility] Comment on above: Performed By: #### H CGSUB #### [facility] [address] [place] [address] Dr. Johnny Johnson RBC 4.37 106/ul Normal 4.20-5.40 [facility] Comment on above: Performed By: #### H CGSUB #### [facility] [address] [place] [address] Dr. Johnny Johnson WBC 8.8 103/ul Normal 4.0-11.0 [facility] Comment on above: Performed By: #### H CGSUB #### [facility] [address] [place] [address] Dr. Johnny Johnson PREG QUANT HCGon 11-15-2021 HCG QUANT <1 Normal [facility] Comment on above: Performed By: #### T SH, PREGQNT #### [facility] [address] [place] [address] Dr. Johnny Johnson HCG RANGE SEE BELOW Normal [facility] Comment on above: Result Comment: 5-50 0-1 WEEK 40-300 1-2 WEEKS 100-1,000 2-3 WEEKS 500-6,000 3-4 WEEKS 5,000-200,000 1-2 MONTHS 10,000-100,000 2-3 MONTHS 3,000-50,000 2ND TRIMESTER 1,000-50,000 3RD TRIMESTER Performed By: #### T SH, PREGQNT #### [facility] [address] [place] [address] Dr. Johnny Johnson PROTIMEon 11-15-2021 INR Coag (PPP) [Relative time] 0.99 {INR} Normal [facility] Comment on above: Performed By: #### P TT, PT #### [facility] [address] [place] [address] Dr. Johnny Johnson INR GUIDELINES SEE BELOW Normal [facility] Comment on above: Result Comment: JEANCARLOS RED INR: 2.0 - 3.0 CONDITIONS NOT LISTED BELOW 2.5 - 3.5 FOR PROSTHETIC HEART VALVE REPLACEMENT 2.5 - 3.5 RECURRENT THROMBOSIS Performed By: #### P TT, PT #### [facility] [address] [place] [address] Dr. Johnny Johnson PT Coag (PPP) [Time] 10.7 s Normal 9.0-11.6 [facility] Comment on above: Performed By: #### P TT, PT #### [facility] [address] [place] [address] Dr. Johnny Johnson PTTon 11-15-2021 aPTT Coag (Bld) [Time] 27.6 s Normal 22.3-36.2 [facility] Comment on above: Performed By: #### P TT, PT #### [facility] [address] [place] [address] Dr. Johnny Johnson TSHon 11-15-2021 TSH 2.349 uIU/mL Normal 0.470-4.680 [facility] Comment on above: Performed By: #### T SH, PREGQNT #### [facility] [address] [place] [address] Dr. Johnny Johnson TSH RANGE SEE BELOW Normal [facility] Comment on above: Result Comment: <0.3 4 UIU/ml HYPERTHYROID 0.34-5.60 UIU/ml EUTHYROID >5.60 UIU/ml HYPOTHYROID Performed By: #### T SH, PREGQNT #### [facility] [address] [place] [address] Dr. Johnny Johnson CBC AUTO DIFFon 11-04-2021 BASO # 0.0 103/ul Normal 0.0-0.1 [facility] Comment on above: Performed By: #### R SPLUS #### [facility] [address] [place] [address] Dr. Johnny Johnson Basophils/100 WBC (Bld) 0.4 % Normal 0.2-2.0 [facility] Comment on above: Performed By: #### R SPLUS #### [facility] [address] [place] [address] Dr. Johnny Johnson EO # 0.1 103/ul Normal 0.0-0.7 [facility] Comment on above: Performed By: #### R SPLUS #### [facility] [address] [place] [address] Dr. Johnny Johnson Eosinophils/100 WBC (Bld) 0.9 % Normal 0.9-7.0 [facility] Comment on above: Performed By: #### R SPLUS #### [facility] [address] [place] [address] Dr. Johnny Johnson Erythrocyte distribution width (RBC) [Ratio] 13.1 % Normal 11.0-15.0 [facility] Comment on above: Performed By: #### R SPLUS #### [facility] [address] [place] [address] Dr. Johnny Johnson Hematocrit (Bld) [Volume fraction] 43.0 % Normal 36.0-48.0 [facility] Comment on above: Performed By: #### R SPLUS #### [facility] [address] [place] [address] Dr. Johnny Johnson Hemoglobin (Bld) [Mass/Vol] 13.8 g/dL Normal 12.0-16.0 [facility] Comment on above: Performed By: #### R SPLUS #### [facility] [address] [place] [address] Dr. Johnny Johnson IG # 0.02 10e3/ul Normal 0.00-0.03 [facility] Comment on above: Performed By: #### R SPLUS #### [facility] [address] [place] [address] Dr. Johnny Johnson IG % 0.3 % Normal 0.0-0.5 [facility] Comment on above: Performed By: #### R SPLUS #### [facility] [address] [address] [address] Johnny Johnson LYMPH # 2.0 103/ul Normal 1.2-3.8 [facility] Comment on above: Performed By: #### R SPLUS #### [facility] [address] [address] [address] Johnny Johnson Lymphocytes/100 WBC (Bld) 27.1 % Normal 20.5-60.0 [facility] Comment on above: Performed By: #### R SPLUS #### [facility] [address] [address] [address] Johnny Johnson MANUAL DIFF REQ NO Normal [facility] Comment on above: Performed By: #### R SPLUS #### [facility] [address] [place] [address] Dr. Johnny Johnson MCH (RBC) [Entitic mass] 29.3 pg Normal 26.7-34.0 [facility] Comment on above: Performed By: #### R SPLUS #### [facility] [address] [place] [address] Dr. Johnny Johnson MCHC (RBC) [Mass/Vol] 32.1 g/dL Normal 29.9-35.2 [facility] Comment on above: Performed By: #### R SPLUS #### [facility] [address] [place] [address] Dr. Johnny Johnson MCV (RBC) [Entitic vol] 91.3 fL Normal 81.0-99.0 [facility] Comment on above: Performed By: #### R SPLUS #### [facility] [address] [address] [address] Johnny Johnson MONO # 0.5 103/ul Normal 0.3-0.8 [facility] Comment on above: Performed By: #### R SPLUS #### [facility] [address] [address] [address] Johnny Johnson Monocytes/100 WBC (Bld) 6.4 % Normal 1.7-12.0 [facility] Comment on above: Performed By: #### R SPLUS #### [facility] [address] [place] [address] Dr. Johnny Johnson NEUT # 4.8 103/ul Normal 1.4-6.5 [facility] Comment on above: Performed By: #### R SPLUS #### [facility] [address] [place] [address] Dr. Johnny Johnson Neutrophils/100 WBC (Bld) 64.9 % Normal 43.0-75.0 [facility] Comment on above: Performed By: #### R SPLUS #### [facility] [address] [place] [address] Dr. Johnny Johnson Platelet mean volume (Bld) [Entitic vol] 10.9 fL Normal 9.5-13.5 [facility] Comment on above: Performed By: #### R SPLUS #### [facility] [address] [place] [address] Dr. Johnny Johnson PLT 218 103/ul Normal 150-450 [facility] Comment on above: Performed By: #### R SPLUS #### [facility] [address] [place] [address] Dr. Johnny Johnson RBC 4.71 106/ul Normal 4.20-5.40 [facility] Comment on above: Performed By: #### R SPLUS #### [facility] [address] [place] [address] Dr. Johnny Johnson WBC 7.5 103/ul Normal 4.0-11.0 [facility] Comment on above: Performed By: #### R SPLUS #### [facility] [address] [place] [address] Dr. Johnny Johnson URon 11-04-2021 , QUAL Negative Normal NEGATIVE [facility] Comment on above: Performed By: #### H CGSUB #### [facility] [address] [place] [address] Dr. Johnny Johnson PROF CHEM 8 (BAS METB)on Anion gap [Moles/Vol] 17.4 mmol/L Normal [facility] Comment on above: Performed By: #### R SPLUS #### [facility] [address] [address] [address] Johnny Johnson Calcium [Mass/Vol] 8.6 mg/dL Normal 8.5-10.1 [facility] Comment on above: Performed By: #### R SPLUS #### [facility] [address] [address] [address] Johnny Johnson Chloride [Moles/Vol] 104 mmol/L Normal 98-107 [facility] Comment on above: Performed By: #### R SPLUS #### [facility] [address] [address] [address] Johnny Johnson CO2 [Moles/Vol] 21.4 mmol/L Critically low 22.0-30.0 [facility] Comment on above: Performed By: #### R SPLUS #### [facility] [address] [place] [address] Dr. Johnny Johnson Creatinine [Mass/Vol] 0.62 mg/dL Normal 0.52-1.04 [facility] Comment on above: Performed By: #### R SPLUS #### [facility] [address] [address] [address] Johnny Johnson EGFR-AF UZBEK >60 Normal >=60 [facility] Comment on above: Performed By: #### R SPLUS #### [facility] [address] [address] [address] Johnny Johnson EGFR-NON AF UZBEK >60 Normal >=60 [facility] Comment on above: Performed By: #### R SPLUS #### [facility] [address] [address] [address] Johnny Johnson Glucose [Mass/Vol] 101 mg/dL Normal 74-106 [facility] Comment on above: Performed By: #### R SPLUS #### [facility] [address] [address] [address] Johnny Johnson Potassium [Moles/Vol] 3.8 mmol/L Normal 3.4-5.0 [facility] Comment on above: Performed By: #### R SPLUS #### [facility] [address] [address] [address] Johnny Johnson Sodium [Moles/Vol] 139 mmol/L Normal 137-145 [facility] Comment on above: Performed By: #### R SPLUS #### [facility] [address] [place] [address] Dr. Johnny Johnson Urea nitrogen [Mass/Vol] 9.0 mg/dL Normal 7.0-18.0 [facility] Comment on above: Performed By: #### R SPLUS #### [facility] [address] [place] [address] Dr. Johnny Johnson Urea nitrogen/Creatinine [Mass ratio] 14.5 mg/mg Normal [facility] Comment on above: Performed By: #### R SPLUS #### [facility] [address] [place] [address] Dr. Johnny Johnson XR CHEST 2 Von [...] MELINDA MONTES Date: 2021-07-31 14:00 Normal [facility] RESPIRATORY PANEL PLUSon Adenovirus Not detected Normal NOT DETECTED [facility] Comment on above: Performed By: #### R SPLUS #### [facility] [address] [place] [address] Dr. Johnny Johnson B. Parapertusis Not detected Normal NOT DETECTED [facility] Comment on above: Performed By: #### R SPLUS #### [facility] [address] [place] [address] Dr. Johnny Hollingsworth. Pertussis Not detected Normal NOT DETECTED [facility] Comment on above: Performed By: #### R SPLUS #### [facility] [address] [place] [address] Dr. Johnny Johnson Chlamydia Pneumoniae Not detected Normal NOT DETECTED [facility] Comment on above: Performed By: #### R SPLUS #### [facility] [address] [place] [address] Dr. Johnny Johnson Coronavirus 229E Not detected Normal NOT DETECTED [facility] Comment on above: Performed By: #### R SPLUS #### [facility] [address] [place] [address] Dr. Johnny Johnson Coronavirus HKU1 Not detected Normal NOT DETECTED [facility] Comment on above: Performed By: #### R SPLUS #### [facility] [address] [place] [address] Dr. Johnny Johnson Coronavirus NL63 Not detected Normal NOT DETECTED [facility] Comment on above: Performed By: #### R SPLUS #### [facility] [address] [place] [address] Dr. Johnny Johnson Coronavirus OC43 Not detected Normal NOT DETECTED [facility] Comment on above: Performed By: #### R SPLUS #### [facility] [address] [place] [address] Dr. Johnny Johnson Influenza A H1 2009 Not detected Normal NOT DETECTED [facility] Comment on above: Performed By: #### R SPLUS #### [facility] [address] [place] [address] Dr. Johnny Johnson Influenza A H3 Not detected Normal NOT DETECTED [facility] Comment on above: Performed By: #### R SPLUS #### [facility] [address] [place] [address] Dr. Johnny Johnson Influenza B Not detected Normal NOT DETECTED [facility] Comment on above: Performed By: #### R SPLUS #### [facility] [address] [place] [address] Dr. Johnny Johnson Metapneumovirus Not detected Normal NOT DETECTED [facility] Comment on above: Performed By: #### R SPLUS #### [facility] [address] [place] [address] Dr. Johnny Johnson Mycoplas. Pneumoniae Not detected Normal NOT DETECTED [facility] Comment on above: Performed By: #### R SPLUS #### [facility] [address] [place] [address] Dr. Johnny Johnson Parainfluenza 1 Not detected Normal NOT DETECTED [facility] Comment on above: Performed By: #### R SPLUS #### [facility] [address] [place] [address] Dr. Johnny Johnson Parainfluenza 2 Not detected Normal NOT DETECTED [facility] Comment on above: Performed By: #### R SPLUS #### [facility] [address] [place] [address] Dr. Johnny Johnson Parainfluenza 3 Not detected Normal NOT DETECTED [facility] Comment on above: Performed By: #### R SPLUS #### [facility] [address] [place] [address] Dr. Johnny Johnson Parainfluenmynor 4 Not detected Normal NOT DETECTED [facility] Comment on above: Performed By: #### R SPLUS #### [facility] [address] [place] [address] Dr. Johnny Johnson Rhino/Enterovirus Not detected Normal NOT DETECTED [facility] Comment on above: Performed By: #### R SPLUS #### [facility] [address] [place] [address] Dr. Johnny Johnson RP2 Header 1 RESPIRATORY PANEL: VIRUSES Normal [facility] Comment on above: Performed By: #### R SPLUS #### [facility] [address] [place] [address] Dr. Johnny Johnson RP2 Header 2 RESPIRATORY PANEL: BACTERIA Normal [facility] Comment on above: Performed By: #### R SPLUS #### [facility] [address] [place] [address] Dr. Johnny Johnson RSV Not detected Normal NOT DETECTED [facility] Comment on above: Performed By: #### R SPLUS #### [facility] [address] [place] [address] Dr. Johnny Johnson SARS-CoV-2 (COVID-19) RNA ANATOLY+probe Ql (Unsp spec) Detected Critically abnormal NOT DETECTED [facility] Comment on above: Performed By: #### R SPLUS #### [facility] [address] [place], [place] [address] Dr. Johnny Johnson Cytology Cervical or vaginal smear or scraping [facility],U[facility],CCon 10-01-2017 Cult,Urine,CC Specimen Description .URINE Performed at [address] [place] [id number] ([phone] Special Requests NOT REPORTEDCulture NO GROWTH Performed at [address] [id number] [phone] Report Status FINAL 10/01/2017 [facility] Comment on above: Performed By: #### P RENAT ####[address] [phone] [place] [address] Discharge Summaryon 09-01-19 18 HIM IP Note OR Cig[facility] Plan of Careon 09-01-2017 HIM IP Note OR [facility] [facility] HIM IP Note OR [facility] [facility] Progress Noteon 09-01-2017 HIM IP Note OR Cigar [employer] Hol[facility] Labor and Delivery Noteon [facility] IP Note OR Cigar Head Holer [facility] of [facility] 08-31-2017 [facility] IP Note OR Cigar Head Holer [facility] Progress Noteon 08-31-2017 HIM IP Note OR Cigar Head Holer Normal [facility] IP Note OR Cigar Head Holer Normal [facility] IP Note OR Cigar Head Holer [facility] HIM IP Note OR Cigar Head Holer [facility] IP Note OR Cigar Head Holer [facility] RhIg Workup (RhoGam)on 08-31 RhIg Workup (RhoGam) Blood Component Type MANUFACTURED PRODUCT Units Ordered 0001 ABO/Rh(D) A NEGATIVE Antibody Screen NEGATIVE History Check ANEGATIVE Rhig Eligibility OK TO TRANSFUSE Brittney NEGATIVE Du Antigen NOT TESTED Unit Number [id number] Blood Component Type RHIG Unit Division 00 Status of Unit TRANSFUSED Transfusion Status OK TO TRANSFUSEPerformed at [address] [place] [address] [facility] Comment on above: Performed By: #### H IVCMB ####[facility] [place] [address] CBC with Diffon 2017 Abs. Basophil 0.00 k/uL Normal 0.0-0.2 [facility] Comment on above: Result Comment: Perf ormed at [address] [place] [address] Performed By: #### C PDAU ####[address] [place] [id number] Abs.Neutrophil (Seg) 8.10 k/uL High 1.8-7.7 [facility] Comment on above: Performed By: #### C PDAU ####[address] [place] [address] Basophils/100 WBC Auto (Bld) 0 % Normal 0-2 [facility] Comment on above: Performed By: #### C PDAU ####[address] [place] [address] Eosinophils 0.10 10*3/uL Normal 0.0-0.4 [facility] Comment on above: Performed By: #### C PDAU ####[address] [place] [address] Eosinophils/100 leukocytes 1 % Normal 0-8 [facility] Comment on above: Performed By: #### C PDAU ####[address] [place] [id number] Erythrocyte distribution width Auto Ratio (RBC) 14.5 % Normal 12.1-15.2 [facility] Comment on above: Performed By: #### C PDAU ####[address] [place] [address] Erythrocytes (RBC) 4.70 10*6/uL Normal 4.0-5.2 [facility] Comment on above: Performed By: #### C PDAU ####[address] [place] [address] Hematocrit (HCT) 40.9 % Normal 36-46 [facility] Comment on above: Performed By: #### C PDAU ####[facility] [place] [address] Hemoglobin mass conc (Bld) 13.6 g/dL Normal 12.0-16.0 [facility] Comment on above: Performed By: #### C PDAU ####[address] [place] [address] Lymphocytes 1.70 10*3/uL Normal 1.0-4.8 [facility] Comment on above: Performed By: #### C PDAU ####[address] [place] [address] Lymphocytes/100 leukocytes 17 % Low 24-44 [facility] Comment on above: Performed By: #### C PDAU ####[address] [place] [address] MCH 28.8 pg Normal 26-34 [facility] Comment on above: Performed By: #### C PDAU ####[address] [place] [address] MCHC mass conc (RBC) 33.2 g/dL Normal 31-37 [facility] Comment on above: Performed By: #### C PDAU ####[address] [place] [address] MCV 87.0 fL Normal 80-100 [facility] Comment on above: Performed By: #### C PDAU ####[address] [place] [address] Monocytes 0.50 10*3/uL Normal 0.0-1.0 [facility] Comment on above: Performed By: #### C PDAU ####[address] [place] [address] Monocytes/100 leukocytes 5 % Normal 0-12 [facility] Comment on above: Performed By: #### C PDAU ####[address] [place] [address] Neutrophil (Seg) 77 % High 36-66 [facility] Comment on above: Performed By: #### C PDAU ####[address] [place] [address] Platelet mean volume (PMV) 10.5 fL Normal 6.0-12.0 [facility] Comment on above: Performed By: #### C PDAU ####[address] [place] [address] Platelets 169 10*3/uL Normal 140-450 [facility] Comment on above: Performed By: #### C PDAU ####[address] [place] [address] WBC (Leukocytes) 10.4 10*3/uL Normal 3.5-11.0 [facility] Comment on above: Performed By: #### C PDAU ####[address] [place] [address] Auto Diff Performed NOT REPORTED Normal [facility] Comment on above: Performed By: #### C PDAU ####[address] [place] [address] Erythrocyte morphology NOT REPORTED [facility] Comment on above: Performed By: #### C PDAU ####[address] [place] [address] Erythrocytes (RBC) NOT REPORTED Normal [facility] Comment on above: Performed By: #### C PDAU ####[address] [place] [address] Granulocytes/100 WBC (Bld) NOT REPORTED Normal 0.00-0.30 [facility] Comment on above: Performed By: #### C PDAU ####[address] [place] [address] Immature granulocytes #/vol (Bld) NOT REPORTED Normal 0 [facility] Comment on above: Performed By: #### C PDAU ####[address] [place] [address] Platelets NOT REPORTED [facility] Comment on above: Performed By: #### C PDAU ####[address] [place] [address] WBC Morphology NOT REPORTED Normal [facility] Comment on above: Performed By: #### C PDAU ####[address] [place] [address] Drug Scr, Abuse, Uron 2017 Amphetamine(s),Ur Negative Normal NEG [facility] Comment on above: Performed By: #### C PDAU ####[address] [place] [address] Barbiturate(s),Ur Negative Normal NEG [facility] Comment on above: Performed By: #### C PDAU ####[address] [place] [address] Base excess Negative Normal NEG [facility] Comment on above: Performed By: #### C PDAU ####[address] [place] [address] Benzodiazepine(s) Negative Normal NEG [facility] Comment on above: Performed By: #### C PDAU ####[address] [place] [address] Buprenorphrine, Ur Negative Normal NEG [facility] Comment on above: Result Comment: Perf ormed at [address] [place] [address] Performed By: #### C PDAU ####[address] [place] [address] Cannabinoid(s),Ur Negative Normal NEG [facility] Comment on above: Performed By: #### C PDAU ####[address] [place] [address] Methamphetamine, Ur Negative Normal NEG [facility] Comment on above: Performed By: #### C PDAU ####[address] [place] [address] Opiate(s), Ur Negative Normal NEG [facility] Comment on above: Performed By: #### C PDAU ####[address] [place] [address] Oxycodone, Urine Negative Normal NEG [facility] Comment on above: Performed By: #### C PDAU ####[address] [place] [address] Phencyclidine, Ur Negative Normal NEG [facility] Comment on above: Performed By: #### C PDAU ####[address] [place] [address] Propoxyphene,Urine Negative Normal NEG [facility] Comment on above: Performed By: #### C PDAU ####[address] [place] [address] Urine, methadone presence Negative Normal NEG [facility] Comment on above: Performed By: #### C PDAU ####[address] [place] [address] Urine, tricyclic antidepressants Negative Normal NEG [facility] Comment on above: Result Comment: Drug screen results are to be used for medical purposes only. All positive results are unconfirmed. Testing for employment or legal uses should be sent to a reference laboratory for confirmation. Performed By: #### C PDAU ####[address] [place] [address] Interpretive Info NOT REPORTED [facility] Comment on above: Performed By: #### C PDAU ####[address] [place] [address] MDMA, Urine NOT REPORTED Normal NEG [facility] Comment on above: Performed By: #### C PDAU ####[address] [place] [address] History and Physicalon 08-30 HIM IP Note OR Cigar Head Holer [facility] Progress Noteon 2017 HIM IP Note OR Cigar Head Holer [facility] HIM IP Note OR Cigar Head Holer Normal [facility] IP Note OR Cigar Head Holer [facility] Urinalysis, Routineon 2017 Acetaminophen mass conc Negative Normal NEG [facility] Comment on above: Performed By: #### C PDAU ####[address] [place] [address] Bilirubin (direct) Negative Normal NEG [facility] Comment on above: Performed By: #### C PDAU ####[address] [place] [address] Hemoglobin mass conc (Bld) 2+ Abnormal NEG [facility] Comment on above: Performed By: #### C PDAU ####[address] [place] [address] Nitrite,Ur Negative Normal NEG [facility] Comment on above: Performed By: #### C PDAU ####[address] [place] [address] Turbidity CLEAR Normal CLEAR [facility] Comment on above: Performed By: #### C PDAU ####[address] [place] [address] Urine, color YELLOW Normal Y[facility] Comment on above: Performed By: #### C PDAU ####[address] [place] [address] Urine, glucose presence Negative Normal NEG [facility] Comment on above: Performed By: #### C PDAU ####[address] [place] [address] Urine, leukocyte esterase presence Negative Normal NEG [facility] Comment on above: Result Comment: Perf ormed at [address] [place] [address] Performed By: #### C PDAU ####[address] [place] [address] Urine, pH 6.5 [pH] Normal 5.0-9.0 [facility] Comment on above: Performed By: #### C PDAU ####[address] [place] [address] Urine, protein presence Negative Normal NEG [facility] Comment on above: Performed By: #### C PDAU ####[address] [place] [address] Urine, specific gravity 1.010 Normal 1.010-1.020 [facility] Comment on above: Performed By: #### C PDAU ####[address] [place] [address] Urobilinogen,Ur Normal Normal NORM [facility] Comment on above: Performed By: #### C PDAU ####[address] [place] [address] Comment NOT REPORTED [facility] Comment on above: Performed By: #### C PDAU ####[address] [place] [address] Urinalysis,Microon 8 ----- [facility] Comment on above: Performed By: #### C PDAU ####[address] [place] [address] Urine WBC's 0 TO 2 Normal 0-5 [facility] Comment on above: Performed By: #### C PDAU ####[address] [place] [address] Urine, epithelial cells in sediment 0 TO 2 Normal 0-25 [facility] Comment on above: Result Comment: Perf ormed at [address] [place] [address] Performed By: #### C PDAU ####[address] [place] [address] Urine, erythrocytes 0 TO 2 Normal 0-2 [facility] Comment on above: Performed By: #### C PDAU ####[address] [place] [address] Epithelial, Renal NOT REPORTED Normal 0 [facility] Comment on above: Performed By: #### C PDAU ####[address] [place] [address] Mucus Strands NOT REPORTED Normal NONE [facility] Comment on above: Performed By: #### C PDAU ####[address] [place] [address] Other Observations NOT REPORTED Normal [facility] Comment on above: Performed By: #### C PDAU ####[address] [place] [address] Trichomonas NOT REPORTED Normal NONE [facility] Comment on above: Performed By: #### C PDAU ####[address] [place] [address] Urine, amorphous sediment presence in sediment NOT REPORTED Normal NONE [facility] Comment on above: Performed By: #### C PDAU ####[address] [place] [address] Urine, bacteria in sediment NOT REPORTED Normal NONE [facility] Comment on above: Performed By: #### C PDAU ####[address] [place] [address] Urine, casts in sediment NOT REPORTED [facility] Comment on above: Performed By: #### C PDAU ####[address] [place] [address] Urine, crystals in sediment NOT REPORTED Normal NONE [facility] Comment on above: Performed By: #### C PDAU ####[address] [place] [address] Urine, yeast presence in sediment NOT REPORTED Normal NONE [facility] Comment on above: Performed By: #### C PDAU ####[address] [place] [address] Rule Out Grp.B Strepon 08-14 Rule Out Grp.B Strep Specimen Description .Vag/Rectal Performed at [address] [place] [address] Special Requests NOT REPORTEDCulture NEGATIVE FOR GROUP B STREPTOCOCCI Performed at [address] [address] Report Status FINAL 08/14/2017 [facility] Comment on above: Performed By: #### R OGBS ####[address] [phone] [place] [address] Progress Noteon 08-11-2017 HIM IP Note OR Cigar Head Holer [facility] Glucose Blake Scr 50gon 2016 Glucose mass conc 128 mg/dL Normal 70-135 [facility] Comment on above: Result Comment: Perf ormed at [address] [place], [place] [id number] [phone] Performed By: #### H GB, GLUSC ####[address] [place] [address] Glu Administered via Glucola [facility] Comment on above: Performed By: #### H GB, GLUSC ####[address] [place] [address] Hemoglobinon 06-10-2017 Hemoglobin mass conc (Bld) 12.6 g/dL Normal 12.0-16.0 [facility] Comment on above: Result Comment: Perf ormed at [address] [place] [address] Performed By: #### H GIULIANA GLUSC ####[address] [place] [address] RhIg Workup (RhoGam)on 06-10 RhIg Workup (RhoGam) Blood Component Type MANUFACTURED PRODUCT Units Ordered 1 ABO/Rh(D) A NEGATIVE Antibody Screen NEGATIVE History Check ANEGATIVE Unit Number [id number] Blood Component Type RHIG Unit Division 00 Status of Unit TRANSFUSED Transfusion Status OK TO TRANSFUSEPerformed at [address] [place] [address] [facility] Comment on above: Performed By: #### T RHIGW ####[address] [place] [address] Chlamydia/GC DNA, Uron 02-26 Chlamydia Probe, Ur Negative [facility] Comment on above: Result Comment: CHLA MYDIA TRACHOMATIS DNA not detected by nucleic acid amplification. Performed By: #### U CGP ####[address] [address] Gonorrhea Probe, Ur Negative [facility] Comment on above: Result Comment: NEIS SERIA GONORRHOEAE DNA not detected by nucleic acid amplification.Performed at [address] [address] Performed By: #### U CGP ####[address] [place] [address] Cult,Urine,CCon 01-31-2017 Cult,Urine,CC Specimen Description .URINE Performed at [address] [place], [place] [id number] [phone]. Special Requests CCMS Performed at [address] [place] [address] Culture NO SIGNIFICANT GROWTH Performed at [address] [address] Report Status FINAL 01/30/2017 [facility] Comment on above: Performed By: #### C CHALINO ####[address] [phone] [place] [address] HIV Ag/Abon 01-30-2017 HIV Ag/Ab NONREACTIVE [facility] Comment on above: Result Comment: No l aboratory evidence of HIV infection. If acute HIV infection is suspected, consider testing for HIV-1 RNA.This is an FDA approved immunoassay that detects HIV-1 and HIV-2 antibodies and HIV-1 p24 antigen to screen for infection with HIV-1 or HIV-2.Performed at [address] [address] Performed By: #### H IVCMB ####[address] [address] Profileon 7 T.pallidum Ab Screen NONREACTIVE [facility] Comment on above: Result Comment: T. p allidum antibodies are not detected.There is no serological evidence of infection with T. pallidum (early primary syphilis cannot be excluded). Retest in 2-4 weeks if syphilis is clinically suspect.Performed at [address] [address] Performed By: #### P RENAT ####[address] [phone] [place] [address] Hep B Surf Ag NONREACTIVE Normal NR [facility] Comment on above: Result Comment: Perf ormed at [address] [address] Performed By: #### P RENAT ####[address] [phone] [place] [address] Rubella Ab, IgG 213.4 IU/mL [facility] Comment on above: Result Comment: REFE RENCE RANGE:<5.0 NON-REACTIVE (non- immune)5.0 TO 9.9 EQUIVOCAL>=10.0 REACTIVE (immune)NOTE: NEW REFERENCE RANGEPerformed at [address] [address] Performed By: #### P RENAT ####[address] [phone] [place] [address] Profileon 7 Abs. Basophil 0.00 k/uL Normal 0.0-0.2 [facility] Comment on above: Result Comment: Perf ormed at [address] [place] [address] Performed By: #### P RENAT ####[address] [phone] [place] [address] Abs.Neutrophil (Seg) 5.90 k/uL Normal 1.8-7.7 [facility] Comment on above: Result Comment: Perf ormed at [address] [place] [address] Performed By: #### P RENAT ####[address] [phone] [place] [address] Basophils/100 WBC Auto (Bld) 0 % [facility] Comment on above: Result Comment: Perf ormed at [address] [place] [address] Performed By: #### P RENAT ####[address] [phone] [place] [address] Eosinophils 0.10 10*3/uL Normal 0.0-0.4 [facility] Comment on above: Result Comment: Perf ormed at [address] [place] [address] Performed By: #### P RENAT ####[address] [phone] [place] [address] Eosinophils/100 leukocytes 1 % [facility] Comment on above: Result Comment: Perf ormed at [address] [place] [address] Performed By: #### P RENAT ####[address] [phone] [place] [address] Erythrocyte distribution width Auto Ratio (RBC) 13.4 % Normal 12.1-15.2 [facility] Comment on above: Result Comment: Perf ormed at [address] [place] [address] Performed By: #### P RENAT ####[address] [phone] [place] [address] Erythrocytes (RBC) 4.78 10*6/uL Normal 4.0-5.2 [facility] Comment on above: Result Comment: Perf ormed at [address] [place] [address] Performed By: #### P RENAT ####[address] [phone] [place] [address] Hematocrit (HCT) 42.6 % Normal 36-46 [facility] Comment on above: Result Comment: Perf ormed at [address] [place] [address] Performed By: #### P RENAT ####[address] [phone] [place] [address] Hemoglobin mass conc (Bld) 14.2 g/dL Normal 12.0-16.0 [facility] Comment on above: Result Comment: Perf ormed at [address] [place] [address] Performed By: #### P RENAT ####[address] [phone] [place] [address] Lymphocytes 1.90 10*3/uL Normal 1.0-4.8 [facility] Comment on above: Result Comment: Perf ormed at [address] [place] [address] Performed By: #### P RENAT ####[address] [phone] [place] [address] Lymphocytes/100 leukocytes 22 % [facility] Comment on above: Result Comment: Perf ormed at [address] [place] [address] Performed By: #### P RENAT ####[address] [phone] [place] [address] MCH 29.6 pg Normal 26-34 [facility] Comment on above: Result Comment: Perf ormed at [address] [place] [address] Performed By: #### P RENAT ####[address] [phone] [place] [address] MCHC mass conc (RBC) 33.3 g/dL Normal 31-37 [facility] Comment on above: Result Comment: Perf ormed at [address] [place] [address] Performed By: #### P RENAT ####[address] [phone] [place] [address] , [place] [address] MCV 89.1 fL Normal 80-100 [facility] Comment on above: Result Comment: Perf ormed at [address] [place] [address] Performed By: #### P RENAT ####[address] [phone] [place] [address] Monocytes 0.40 10*3/uL Normal 0.0-1.0 [facility] Comment on above: Result Comment: Perf ormed at [address] [place] [address] Performed By: #### P RENAT ####[address] [place] [phone] [place] [address] Monocytes/100 leukocytes 5 % [facility] Comment on above: Result Comment: Perf ormed at [address] [place] [address] Performed By: #### P RENAT ####[address] [phone] [place] [address] Neutrophil (Seg) 72 % [facility] Comment on above: Result Comment: Perf ormed at [address] [place] [address] Performed By: #### P RENAT ####[address] [phone] [place] [address] , [place] [address] Platelets 206 10*3/uL Normal 140-450 [facility] Comment on above: Result Comment: Perf ormed at [address] [place] [address] Performed By: #### P RENAT ####[address] [phone] [place] [address] , [place] [address] WBC (Leukocytes) 8.4 10*3/uL Normal 3.5-11.0 [facility] Comment on above: Result Comment: Perf ormed at [address] [place] [address] Performed By: #### P RENAT ####[address] [phone] [place] [address] Auto Diff Performed NOT REPORTED Normal [facility] Comment on above: Performed By: #### P RENAT ####[address] [phone] [place] [address] Erythrocyte morphology NOT REPORTED [facility] Comment on above: Performed By: #### P RENAT ####[facility] [address] [place] [phone] [place] [address] Platelet mean volume (PMV) NOT REPORTED Normal 6.0-12.0 [facility] Comment on above: Performed By: #### P RENAT ####[address] [phone] [place] [address] , [place] [address] Platelets NOT REPORTED [facility] Comment on above: Performed By: #### P RENAT ####[address] [phone] [place] [address] , [place] [address] WBC Morphology NOT REPORTED [facility] Comment on above: Performed By: #### P RENAT ####[address] [phone] [place] [address] , [place] [address] Type + Scrnon 01-29 Type + Scrn ABO/Rh(D) A NEGATIVE Antibody Screen NEGATIVE Performed at [address] [place] [address] [facility] Comment on above: Performed By: #### P RTYS ####[address] [place] [address] Toxicology [place], [place] Amphetamine(s),Ur Negative Normal [facility] Comment on above: Performed By: #### C PDAU ####[address] [place] [address] Barbiturate(s),Ur Negative [facility] Comment on above: Performed By: #### C PDAU ####[address] [place] [address] Base excess Negative [facility] Comment on above: Performed By: #### C PDAU ####[address] [place] [address] Benzodiazepine(s) Negative [facility] Comment on above: Performed By: #### C PDAU ####[address] [place] [address] Buprenorphrine, Ur Negative [facility] Comment on above: Result Comment: Perf ormed at [address] [place] [address] Performed By: #### C PDAU ####[address] [place] [address] Cannabinoid(s),Ur Negative [facility] Comment on above: Performed By: #### C PDAU ####[address] [place] [address] Methamphetamine, Ur Negative [facility] Comment on above: Performed By: #### C PDAU ####[address] [place] [address] Opiate(s), Ur Negative [facility] Comment on above: Performed By: #### C PDAU ####[address] [place] [address] Oxycodone, Urine Negative [facility] Comment on above: Performed By: #### C PDAU ####[address] [place] [address] Phencyclidine, Ur Negative [facility] Comment on above: Performed By: #### C PDAU ####[address] [place] [address] Propoxyphene,Urine Negative [facility] Comment on above: Performed By: #### C PDAU ####[address] [place] [address] Urine, methadone presence Negative [facility] Comment on above: Performed By: #### C PDAU ####[address] [place] [address] Urine, tricyclic antidepressants Negative [facility] Comment on above: Result Comment: Drug screen results are to be used for medical purposes only. All positive results are unconfirmed. Testing for employment or legal uses should be sent to a reference laboratory for confirmation. Performed By: #### C PDAU ####[address] [place] [address] Interpretive Info NOT REPORTED [facility] Comment on above: Performed By: #### C PDAU ####[address] [place] [address] MDMA, Urine NOT REPORTED Normal [facility] Comment on above: Performed By: #### C PDAU ####[address] [place] [address] Vital Signs Date Time Vital Sign Value Performing Clinician Facility 02-06-2025 16:17-0400 Body height 165.1 cm Elana VELEZ Work Phone: [facility] 02-06-2025 16:17-0400 Body mass index (BMI) [Ratio] 27.96 kg/m2 Elana Hemmer PA Work Phone: [facility] 02-06-2025 16:17-0400 Body weight 76.2 kg Elana Hemmer PA Work Phone: [facility] 02-06-2025 16:17-0400 Diastolic blood pressure 80 mm[Hg] Elana Hemmer PA Work Phone: [facility] 02-06-2025 16:17-0400 Heart rate 83 /min Elana Hemmer PA Work Phone: [facility] 02-06-2025 16:17-0400 Respiratory rate 17 /min Elana Hemmer PA Work Phone: [facility] 02-06-2025 16:17-0400 SaO2% (BldA) [Mass fraction] 98 % Elana Hemmer PA Work Phone: [facility] 02-06-2025 16:17-0400 Systolic blood pressure 120 mm[Hg] Elana Hemmer PA Work Phone: [facility] 11-30-2024 13:37-0400 Body height 165.1 cm Elana Hemmer PA Work Phone: [facility] 11-30-2024 13:37-0400 Body mass index (BMI) [Ratio] 28.76 kg/m2 Elana Hemmer PA Work Phone: [facility] 11-30-2024 13:37-0400 Body weight 78.38 kg Elana Hemmer PA Work Phone: [facility] 11-30-2024 13:37-0400 Diastolic blood pressure 76 mm[Hg] Elana Hemmer PA Work Phone: [facility] 11-30-2024 13:37-0400 Heart rate 84 /min Elana Hemmer PA Work Phone: [facility] 11-30-2024 13:37-0400 Respiratory rate 16 /min Elana Hemmer PA Work Phone: [facility] 11-30-2024 13:37-0400 SaO2% (BldA) [Mass fraction] 97 % Elana Hemmer PA Work Phone: [facility] 11-30-2024 13:37-0400 Systolic blood pressure 124 mm[Hg] Elana Ram PA Work Phone: [facility] 09-05-2024 09:38-0500 Body height 165.1 cm Ko Muro MD Work Phone: [facility] 09-05-2024 09:38-0500 Body mass index (BMI) [Ratio] 29.72 kg/m2 Ko Muro MD Work Phone: [facility] 09-05-2024 09:38-0500 Body weight 81.01 kg Ko Muro MD Work Phone: [facility] 09-05-2024 09:38-0500 Diastolic blood pressure 74 mm[Hg] Ko Muro MD Work Phone: [facility] 09-05-2024 09:38-0500 Heart rate 69 /min Ko Muro MD Work Phone: [facility] 09-05-2024 09:38-0500 Respiratory rate 16 /min Ko Muro MD Work Phone: [facility] 09-05-2024 09:38-0500 SaO2% (BldA) [Mass fraction] 98 % Ko Muro MD Work Phone: [facility] 09-05-2024 09:38-0500 Systolic blood pressure 118 mm[Hg] Ko Muro MD Work Phone: [facility] 05-16-2024 14:50-0400 Body height 165.1 cm Elana Ram PA Work Phone: [facility] 05-16-2024 14:50-0400 Body mass index (BMI) [Ratio] 29.15 kg/m2 Elana Hemmer PA Work Phone: [facility] 05-16-2024 14:50-0400 Body weight 79.47 kg Elana Hemmer PA Work Phone: [facility] 05-16-2024 14:50-0400 Diastolic blood pressure 74 mm[Hg] Elana Hemmer PA Work Phone: [facility] 05-16-2024 14:50-0400 Heart rate 80 /min Elana Hemmer PA Work Phone: [facility] 05-16-2024 14:50-0400 Respiratory rate 16 /min Elana Hemmer PA Work Phone: [facility] 05-16-2024 14:50-0400 SaO2% (BldA) [Mass fraction] 98 % Elana Hemmer PA Work Phone: [facility] 05-16-2024 14:50-0400 Systolic blood pressure 116 mm[Hg] Elana Hemmer PA Work Phone: [facility] 05-05-2024 14:55-0400 Body mass index (BMI) [Ratio] 28.92 kg/m2 Joselyn Jason PA Work Phone: [facility] 05-05-2024 14:55-0400 Body weight 78.83 kg Joselyn Chadds Ford PA Work Phone: [facility] 05-05-2024 14:55-0400 Diastolic blood pressure 70 mm[Hg] Joselyn Chadds Ford PA Work Phone: [facility] 05-05-2024 14:55-0400 Systolic blood pressure 120 mm[Hg] Joselyn Chadds Ford PA Work Phone: [facility] 11-20-2023 08:46-0400 Diastolic blood pressure 71 mm[Hg] II Ko Muro Work Phone: [facility] 11-20-2023 08:46-0400 Heart rate 69 /min II Ko Muro Work Phone: [facility] 11-20-2023 08:46-0400 Respiratory rate 16 /min II Ko Muro Work Phone: [facility] 11-20-2023 08:46-0400 SaO2% (BldA) [Mass fraction] 99 % II Ko Muro Work Phone: [facility] 11-20-2023 08:46-0400 Systolic blood pressure 116 mm[Hg] II Ko Muro Work Phone: [facility] 11-20-2023 07:22-0400 Body height 165.1 cm II Ko Muro Work Phone: [facility] 11-20-2023 07:22-0400 Body weight 77.11 kg II Ko Muro Work Phone: [facility] 10-20-2023 15:05-0400 Body height 165.1 cm [facility] 10-20-2023 15:05-0400 Body mass index (BMI) [Ratio] 28.3 kg/m2 [facility] 10-20-2023 15:05-0400 Body weight 77.11 kg [facility] 08-01-2022 18:10-0500 Body height 165.1 cm Zuleima Buttmond Other [facility] [employer] Other 08-01-2022 18:10-0500 Body mass index (BMI) [Ratio] 28.29 kg/m2 Zuleima Buttmond Other [employer] Other 08-01-2022 18:10-0500 Body temperature 97.6 [degF] Zuleima Buttmond Other [employer] Other 08-01-2022 18:10-0500 Body weight 77.11 kg Zuleima Kirstie Other [employer] Other 08-01-2022 18:10-0500 Diastolic blood pressure 79 mm[Hg] Zuleima Kirstie Other [employer] Other 08-01-2022 18:10-0500 Respiratory rate 18 /min Zuleima Kirstie Other [employer] Other 08-01-2022 18:10-0500 SaO2% (BldA) [Mass fraction] 99 % Zuleima Thacker Other [employer] Other 08-01-2022 18:10-0500 Systolic blood pressure 130 mm[Hg] Zuleima Thacker Other [employer] Other Encounters Encounter Date Encounter Type Care Provider Facility Start: 04-05-2025 End: 04-05-2025 Refill Elana VELEZ Work Phone: [facility] Comment on above: Spinal stenosis in c ervical region; Generalized anxiety disorder Start: 03-07-2025 End: 03-07-2025 Refill Elana VELEZ Work Phone: [facility] Comment on above: Spinal stenosis in c ervical region Start: 03-06-2025 End: 03-06-2025 Refill Serena Del Rio LPN Work Phone: [facility] [employer] Comment on above: Generalized anxiety disorder Start: 02-06-2025 End: 02-06-2025 Patient encounter status Elana VELEZ Work Phone: [facility] Start: 02-06-2025 End: 02-06-2025 Periodic preventive med est patient 40-64yrs Elana VELEZ Work Phone: [facility] Comment on above: Wellness examination (Primary Dx); Spinal stenosis in cervical region; Generalized anxiety disorder ; Hidradenitis suppurativa; Other chronic pain; Primary insomnia; Chronic fatigue; Degenerative disc disease, cervical; DUB (dysfunctional uterine bleeding); Fear of flying ; Ganglion of right wrist; Bilateral hearing loss, unspecified hearing loss type; Inflammatory arthritis; Moderate major depression (HCC); Panic attacks ; Seasonal allergies; Supraventricular tachycardia (HCC); Bilateral tinnitus; Tobacco dependence; Overweight; Echocardiogram abnormal; Mitral valve prolapse; Palpitations; Sinus tachycardia; Family history of heart disease; PVC (premature ventricular contraction); Alternating constipation and diarrhea; Aplasia of body of uterus; History of bilateral tubal ligation; History of umbilical hernia; Dyspnea on exertion; Sleep apnea, unspecified type; Tobacco abuse; Precordial pain Start: 02-06-2025 End: 02-06-2025 ambulatory ELANA RAM Not Available Start: 01-30-2025 End: 01-30-2025 Refill Elana Ram PA Work Phone: [facility] Comment on above: Generalized anxiety disorder Start: 01-06-2025 End: 01-09-2025 Refill Elana Ram PA Work Phone: [facility] Comment on above: Primary insomnia; Spinal stenosis in cervical region Start: 01-03-2025 End: 01-04-2025 Refill Elana Ram PA Work Phone: [facility] Comment on above: Generalized anxiety disorder (CMS/HCC) Start: 12-07-2024 End: 12-07-2024 Refill Elana Ram PA Work Phone: [facility] Comment on above: Spinal stenosis in c ervical region Start: 12-06-2024 End: 12-06-2024 Refill Elana Ram PA Work Phone: [facility] Comment on above: Generalized anxiety disorder (CMS/HCC) Start: 11-30-2024 End: 11-30-2024 Bamboo flowsheet Elana Ram PA Work Phone: [facility] Start: 11-30-2024 End: 11-30-2024 Bamboo flowsheet Elana Ram PA Work Phone: [facility] Start: 11-30-2024 End: 11-30-2024 Office outpatient visit 25 minutes Elana Ram PA Work Phone: [facility] Comment on above: Enlarged lymph node in neck (Primary Dx); Discomfort of right eye; Primary insomnia; Spinal stenosis in cervical region Start: 11-30-2024 End: 11-30-2024 ambulatory ELANA RAM Not Available Start: 11-02-2024 End: 11-03-2024 Refill Ko Muro MD Work Phone: [facility] Comment on above: Spinal stenosis in c ervical region Generalized anxiety disorder (CMS/HCC); Spinal stenosis in cervical region Start: 09-15-2024 End: 09-21-2024 Telephone encounter Gay Macias PT [facility] Comment on above: re: CX of fu for Chava tigo (PT on 09/12 was cx.) Start: 09-12-2024 End: 09-12-2024 Refill Elana VELEZ Work Phone: [facility] Comment on above: Spinal stenosis in c ervical region; Generalized anxiety disorder (CMS/HCC) Start: 09-06-2024 End: 09-06-2024 Bamboo flowsheet Gay Macias PT [facility] Start: 09-06-2024 End: 09-06-2024 Bamboo flowsheet Gay Macias PT [facility] Start: 09-06-2024 End: 09-06-2024 ambulatory Gay Macias PT [facility] Comment on above: Vertigo (Primary Dx) Start: 09-05-2024 End: 09-05-2024 Bamboo flowsheet Ko Muro MD Work Phone: [facility] Start: 09-05-2024 End: 09-05-2024 Bamboo flowsheet Ko Muro MD Work Phone: [facility] Start: 09-05-2024 End: 09-05-2024 Telephone encounter Gay Macias PT [facility] Comment on above: re: Vertigo; Call Ba ck Start: 09-05-2024 End: 09-05-2024 ambulatory KO MURO Not Available Start: 09-05-2024 End: 09-05-2024 Office outpatient visit 15 minutes Ko Muro MD Work Phone: [facility] Comment on above: Vertigo (Primary Dx) ; Traumatic coccydynia; Obesity, class 1; Weight gain Start: 08-11-2024 End: 08-11-2024 Refill Elana VELEZ Work Phone: [facility] Comment on above: Uncomplicated opioid use (Primary Dx); Spinal stenosis in cervical region; Generalized anxiety disorder (CMS/HCC) Start: 08-05-2024 End: 08-08-2024 Refill Elana VELEZ Work Phone: [facility] Comment on above: Generalized anxiety disorder (CMS/HCC) Start: 07-12-2024 End: 07-12-2024 Refill Elana VELEZ Work Phone: [facility] Comment on above: Spinal stenosis in c ervical region; Generalized anxiety disorder (CMS/HCC) Start: 06-14-2024 End: 06-14-2024 Refill Elana VELEZ Work Phone: [facility] Comment on above: Spinal stenosis in c ervical region; Generalized anxiety disorder (CMS/HCC) Start: 06-01-2024 End: 06-01-2024 ambulatory [facility] Start: 05-16-2024 End: 05-16-2024 Office outpatient visit 15 minutes Elana VELEZ Work Phone: [facility] Comment on above: Spinal stenosis in c ervical region (Primary Dx); Generalized anxiety disorder (CMS/HCC); Chest pain, unspecified type Start: 05-16-2024 End: 05-16-2024 ambulatory ELANA RAM Not Available Start: 05-05-2024 End: 05-05-2024 Patient encounter procedure Joselyn VELEZ Work Phone: [facility] Work Phone: Start: [...] Data Provider [facility] Unsolicited Start: 04-11-2024 End: 04-11-2024 Refill Elana VELEZ Work Phone: [facility] Comment on above: Spinal stenosis in c ervical region; Generalized anxiety disorder (CMS/HCC) Start: 11-20-2023 Non-patient / Non-visit II Maurilio crowell Bhaskar Work Phone: [facility] Work Phone: Start: 11-20-2023 End: 11-20-2023 Admission to same day surgery center II Ko Bhaskar Work Phone: [facility] Work Phone: Start: 11-20-2023 End: 11-20-2023 ambulatory II Ko Bhaskar Work Phone: [facility] Work Phone: Start: 10-29-2023 End: 10-29-2023 Patient encounter procedure II Ko Bhaskar Work Phone: [facility] Work Phone: Start: 10-29-2023 End: 10-29-2023 ambulatory II Ko Bhaskar Work Phone: [facility] Work Phone: Start: 10-20-2023 End: 10-20-2023 ambulatory [facility] Work Phone: Start: 10-20-2023 End: 10-20-2023 Patient encounter procedure [facility] Work Phone: Start: 08-01-2022 End: 08-01-2022 Patient encounter procedure II Ko Muro Work Phone: [facility] Work Phone: Start: 08-01-2022 End: 08-01-2022 ambulatory II Ko Muro Work Phone: [facility] Work Phone: Start: 08-01-2022 Office outpatient ne w 20 minutes Zuleima Thacker [facility] Start: 04-25-2022 End: 04-26-[address] NBA SCHERER Facility:[facility] Start: 04-22-[address] NBA SCHERER Facility :H1 Start: 03-11-2022 End: 03-11-[address] KO MURO Facility:[facility]1 Start: 03-02-2022 Encounter for preprocedural laboratory examination DR NBA SCHERER [facility] Start: 02-28-2022 End: 02-28-[address] NBA SCHERER Facility:[facility]1 Start: 02-26-2022 End: 02-27-[address] NBA SCHERER Facility:[facility] Start: 02-26-2022 End: 02-27-2022 Encounter for preprocedural laboratory examination DR NBA SCHERER Facility:[facility]1 Start: 02-25-2022 Encounter for preprocedural cardiovascular examination DR NBA SCHERER [facility] Start: 02-20-2022 End: 02-21-[address] NBA SCHERER Facility:[facility]1 Start: 02-20-2022 End: 02-21-2022 Encounter for preprocedural cardiovascular examination DR NBA SCHERER Facility:[facility]1 Start: 11-15-2021 End: 11-16-[address] NBA SCHERER Facility:[facility] Start: 11-04-2021 End: 11-04-2021 ambulatory GUICHO CHRISTIANSEN Facility:[facility]1 Start: 07-31-2021 End: 08-01-[address] ELANA RAM Facility:[facility]1 Start: 07-16-2021 End: 07-16-2021 ambulatory NICOL BRITO Facility:[facility]1 Start: 09-30-2017 End: 10-01-2017 Ambulatory [facility] Start: 2017 End: 09-01-2017 Evaluation and management of inpatient [facility] Start: 08-10-2017 End: 08-11-2017 Ambulatory [facility] Start: 06-11-2017 End: 06-12-2017 Ambulatory [facility] Start: 06-10-2017 End: 06-11-2017 Ambulatory [facility] Start: 02-24-2017 End: 02-25-2017 Ambulatory [facility] Start: 01-29-2017 End: 01-30-2017 Ambulatory [facility] Procedures Date Procedure Procedure Detail Performing Clinician Start: 06-07-2024 Mammography Elana VELEZ Work Phone: Start: 05-16-2024 H/O: tubal ligation History of bilateral tubal ligation Elana VELEZ Work Phone: Start: 05-05-2024 IGP,APTIMA HPV,AGE GDLN Joselyn VELEZ Work Phone: Start: 05-05-2024 Microscopic observat ion [Identifier] in Cervix by Cyto stain Elana VELEZ Work Phone: Start: 11-20-2023 Colonoscopy II Ko Muro Work Phone: Start: 10-29-2023 Computed tomography of abdomen and pelvis with contrast II Ko Muro Work Phone: Start: 02-16-2023 Mammography Elana VELEZ Work Phone: Start: 08-01-2022 Plain X-ray of right wrist II Ko Muro Work Phone: Start: 05-28-2021 Microscopic observat ion [Identifier] in Cervix by Cyto stain Joselyn VELEZ Work Phone: Start: 05-28-2021 Cytp cerv/vag auto t hin layer prep mnl screen Ko Muro MD Work Phone: Start: 09-30-2017 URINE CULTURE CLEAN CATCH [facility]I PO[facility] Start: 09-01-2017 DISCHARGE PATIENT KASEY EEN POOL Start: 08-31-2017 RHOGAM DEMETRIOHL EEN POOL Start: 08-31-2017 ADVANCE DIET TOLE RATED (NURSING COMMUNICATION) MANDI POOL Start: 08-31-2017 AMBULATE PATIENT KASEYE EN POOL Start: 08-31-2017 ASSESS MANDI P OOL Start: 08-31-2017 DIET GENERAL [facility]ANDI P OOL Start: 08-31-2017 ICE TO AFFECTED AREA BRIAN CHILDERSEN POOL Start: 08-31-2017 NOTIFY PHYSICIAN (SPECIFY) [facility] Start: 08-31-2017 SALINE LOCK IV M[facility]I PO[facility] Start: 08-31-2017 STRAIGHT CATH [facility]I PO[facility] Start: 08-31-2017 VITAL SIGNS MANDI P OOL Start: 08-31-2017 FULL CODE MANDI P OOL Start: 08-31-2017 TRANSFER PATIENT KASEYE EN POOL Start: 2017 CBC WITH AUTO DIFFERENTIAL MANDI POOL Start: 2017 PATIENT STATUS (DIRECT) MANDI PO[facility] Start: 2017 nonstress test BRIAN CHILDERSEN POOL Start: 2017 Microscopic urinalysis MANDI PO[facility] Start: 2017 Urinalysis MANDI P OOL Start: 2017 URINE DRUG SCREEN DEMETRIOHL EEN POOL Start: 08-10-2017 STREP B SCREEN, [...] COMPREHENSIVE [facility] PO[facility] Start: 01-29-2017 PROFILE I JAVONAliyah PAGEN POOL H/O: tubal ligation History of b ilateral tubal ligation H/O: tubal ligation History of b ilateral tubal ligation Elana VELEZ Work Phone: Plan of Treatment Date Care Activity Detail Author Start: 05-05-2029 Screening for malignant neoplasm of cervix [facility] Start: 05-28-2026 Screening for malignant neoplasm of cervix [facility] Start: 06-07-2025 Screening for malignant neoplasm of breast Mammogram [facility] Start: 05-09-2025 End: 05-09-2025 Patient encounter procedure [facility] Start: 03-27-2025 Influenza vaccination [facility] Start: 01-23-2025 Influenza vaccination Influenza Vacc ine (#1) [facility] Comment on above: Postponed from 03/27 (Patient Refused) Start: 11-30-2024 End: 11-30-2024 Patient encounter procedure 11/30/2024 1:30 PM EDT Office Visit [facility] [address] [place] [id number] Elana Ram PA [address] [place] [address] Arrived [facility] Comment on above: Arrived Start: 09-12-2024 End: 09-12-2024 ambulatory 09/12/2024 5:00 PM EST Treatment [facility] [address] [place] [address] Gay Macias, PT [facility] Start: 09-06-2024 End: 09-06-2024 ambulatory [facility] Comment on above: Vertigo (Primary Dx) Start: 09-05-2024 End: 09-05-2025 Thyrotropin [Units/volume] in Serum or Plasma TSH Lab Routine Weight gain Expected: 09/05/2024 (Approximate), Expires: 09/05/2025 [facility] Work Phone: Comment on above: Expected: 09/05/2024 (Approximate), Expires: 09/05/2025 Start: 09-05-2024 End: 09-05-2025 Thyroxine (T4) free [Mass/volume] in Serum or Plasma T4, free Lab Routine Weight gain Expected: 09/05/2024 (Approximate), Expires: 09/05/2025 [facility] Comment on above: Expected: 09/05/2024 (Approximate), Expires: 09/05/2025 Start: 08-16-2024 End: 08-16-2024 Patient encounter procedure 08/16/2024 3:00 PM EST Office Visit [facility] [address] [place] [address] Elana Ram, PA [address] [place] [address] [facility] Start: 05-16-2024 End: 05-16-2024 Patient encounter procedure 05/16/2024 3:00 PM EDT Office Visit [facility] [address] [place] [address] Elana Ram PA [address] [place] [address] [facility] Start: 05-12-2024 End: 05-12-2024 Patient encounter procedure 05/12/2024 11:30 AM EDT Office Visit [facility] [address] [place] [address] Elana Ram, PA [address] [place] [address] [facility] Start: 05-05-2024 End: 05-05-2024 Patient encounter procedure [facility] Comment on above: Arrived Start: 05-05-2024 End: 07-05-2025 MG Breast - bilateral Screening Bilateral screening mammogram Imaging Routine Breast cancer screening by mammogram Expected: 05/05/2024 (Approximate), Expires: 07/05/2025 [facility] Work Phone: Comment on above: Expected: 05/05/2024 (Approximate), Expires: 07/05/2025 Start: 03-27-2024 Influenza vaccination Influenza Vacc ine (#1) [facility] Start: 02-17-2024 Screening for malignant neoplasm of breast Mammogram [facility] Start: 11-20-2023 [facility] Start: 2012 Screening for malignant neoplasm of cervix [facility] Start: 2003 Screening for malignant neoplasm of cervix Pap Smear [facility] CT Abdomen and Pelvi s W contrast IV [facility] Patient Education Hemorrhoids (D C) Colon Polypectomy (DC) [facility] Work Phone: THIN PREP TIS PAP AN D HR HPV DNA THIN PREP TIS PAP AND HR HPV DNA Pathology and Cytology Routine Well woman exam with routine gynecological exam Ordered: 05/05/2024 [facility] Comment on above: Ordered: 05/05/2024 Immunizations Immunization Date Immunization Notes Care Provider Fa cility 05-05-2018 pneumococcal polysaccharide vaccine, 23 valent Elana VELEZ Work Phone: [facility] 07-21-2017 tetanus toxoid, redu nik diphtheria toxoid, and acellular pertussis vaccine, adsorbed Elana VELEZ Work Phone: [facility] Payers Date Payer Category Payer Self-pay [id number] 2023 Unknown [id number] 2022 Medicaid [id number] 2022 [facility] [id number] 2022 Unknown BCBS BCBS [id number] 2022-Present [phone] [address] [place] [address] [id number] 2017 Private Health Insurance [id number] 2015 Unknown [id number] 1982 Unknown [id number] .[id number]. 593 1982 Unknown [id number] [id number]. 593 1982 Unknown [id number] .840.1.810131.3.579.2. 593 1982 Unknown [id number] 840.1.719490.3.579.2. 593 1982 Unknown [id number] 840.1.395051.3.579.2. 593 1982 Unknown [id number]. 593 1982 Unknown [id number] 840.1.825974.3.579.2. 593 1982 Unknown [id number] .1.868109.3.579.2. 593 1982 Unknown [id number] 840.1.969943.3.579.2. 593 1982 Unknown [id number] 840.1.085008.3.579.2. 593 1982 Unknown [id number] 840.1.453395.3.579.2. 1259 1982 Unknown [id number] 840.1.113006.3.579.2. 1259 1982 Unknown [id number] 840.1.553578.3.579.2. 1259 1982 Unknown [id number] 840.1.710860.3.579.2. 1259 1982 Unknown [id number] 840.1.854738.3.579.2. 1259 1982 Unknown [id number] [id number]. 1259 1959 Self-pay [id number] 1959 Unknown [id number] 1959 Unknown [id number] Medicaid [employer] Ad[employer]age [id number] Unknown [id number]. 531 Unknown [id number]. 531 Social History Date Type Detail Facility Start: 07-08-2018 End: 11-20-2023 Tobacco smoking status KYIS Smoker (finding) [facility] Start: 1980 Sex Assigned At Female F [facility] Start: 12-24-2022 End: 05-05-2024 Sex Assigned At [facility] Start: 04-07-2023 End: 05-16-2024 Tobacco smoking status [facility] Smokes tobacco daily [facility] History of tobacco use Cigarette Smoker [facility] Start: 04-07-2023 End: 05-16-2024 Tobacco use and exposure Smokeless tobacco non-user [facility] Start: 02-09-2024 End: 02-07-2025 Alcoholic beverage intake Current drinker of alcohol [...] Sex assigned at Not on file [facility] How often do you nee d to have someone help you when you read instructions, pamphlets, or other written material from your doctor or pharmacy [SILS] Patient declines to respond [facility] Do you feel stress - tense, restless, nervous, or anxious, or unable to sleep at night because your mind is troubled all the time - these days [OSQ] Rather much [facility] (I/We) worried wheth er (my/our) food would run out before (I/we) got money to buy more. Never true [facility] Goals Date Patient Goal Desired Activity /State Functional Status Date Assessment Result Facility 02-06-2025 Patient Health Quest ionnaire 2 item (PHQ-2) [Reported] [facility] 02-06-2025 PHQ-9 quick depressi on assessment panel [Reported.PHQ] [facility] 11-30-2024 Patient Health Quest ionnaire 2 item (PHQ-2) [Reported] [facility] Clinical Notes 02-28-2022 to 04-05-2025 Telephone Encounter - Sondra Courtney - 04/05/2025 3:35 PM EDTTelephone Encounter - Sondra Courtney - 04/05/2025 3:35 PM EDTTelephone Encounter - ROSIE Infante - 04/05/2025 2:45 PM EDT Note Date & Type Note Facility 04-05-2025 Telephone encounter Note Patient is already trying to be contacted per previous telephone encounter [facility] 04-05-2025 Miscellaneous Notes Patient is already trying to be contacted per previous telephone encounter Please help pt get set up for controlled medication follow up in mid April. OARRS reviewed, Rx sent into patient's pharmacy. documented in this encounter [facility] 04-05-2025 Telephone encounter Note Please help pt get set up for controlled medication follow up in mid April. OARRS reviewed, Rx sent into patient's pharmacy. [facility] 03-07-2025 Telephone encounter Note OARRS reviewed, Rx sent into patient's pharmacy. [facility] 03-07-2025 Miscellaneous Notes OARRS reviewed, Rx sent into patient's pharmacy. OV 02/06/25 RF 02/06/25 documented in this encounter [facility] 03-07-2025 Telephone encounter Note OV 02/06/25 RF 02/06/25 [facility] 03-06-2025 Telephone encounter Note OARRS reviewed, Rx sent into patient's pharmacy. [facility] 03-06-2025 Miscellaneous Notes OARRS reviewed, Rx sent into patient's pharmacy. documented in this encounter [facility] 02-06-2025 History of Presen t illness Narrative Images from the original note were not included. Subjective Patient ID: Kate Hazel is a 44 y.o. female who presents for a wellness. Kate presents today for a yearly wellness. Also c/o a boil on her inner thigh, currently on the right side, but gets them on both. They will brake open and then go away. She states this has been going on for over a year. Uses a drawing salve Ichthammol ointment 20% which does seem to help with the pain. Cleans it with Dial anti-bacterial soap. Uses hydrogen peroxide. Did order some Hibiclens. Over the past 2 weeks, how often have you been bothered by any of the following problems? Little interest or pleasure in doing things: Several days Feeling down, depressed, or hopeless: Several days Patient Health Questionnaire-2 Score: 2 If you checked off any problems on this questionnaire so far, How difficult have these problems made it for you to do your work, take care of things at home, or get along with other people?: Somewhat difficult Current Outpatient Medications on File Prior to Visit Medication Sig Dispense Refill ALPRAZolam (Xanax) 0.25 MG tablet Take 1 tablet (0.25 mg) by mouth 2 (two) times a day as needed for anxiety 60 tablet 0 cetirizine (ZyrTEC) 10 MG tablet TAKE 1 TABLET BY MOUTH DAILY at the same time each day 100 tablet 3 diclofenac (Cataflam) 50 MG tablet Take 1 tablet (50 mg) by mouth in the morning and 1 tablet (50 mg) before bedtime. 60 tablet 1 meclizine (Antivert) 25 MG tablet Take 1 tablet (25 mg) by mouth 3 (three) times a day as needed for dizziness 30 tablet 2 metoprolol succinate XL (Toprol-XL) 50 MG 24 hr tablet take 3 tablet by mouth once daily 300 tablet 3 naloxone (Narcan) 4 mg/0.1 mL nasal spray Administer 2 sprays (8 mg) into affected nostril(s) if needed for opioid reversal 2 each 0 orphenadrine (Norflex) 100 MG 12 hr tablet Take 1 tablet (100 mg) by mouth 2 (two) times a day as needed for muscle spasms Do not crush, chew, or split. 60 tablet 1 zolpidem (Ambien) 10 MG tablet Take 0.5-1 tablets (5-10 mg) by mouth as needed at bedtime for sleep 30 tablet 0 [DISCONTINUED] HYDROcodone-acetaminophen ([place]) 5-325 MG tablet Take 1 tablet by mouth every 6 (six) hours if needed for severe pain 120 tablet 0 [DISCONTINUED] metFORMIN XR (Glucophage-XR) 500 MG 24 hr tablet Take 1 tablet (500 mg) by mouth in the evening. Take with meals Do not crush, chew, or split. (Patient not taking: Reported on 11/30/2024) 90 tablet 1 No current facility-administered medications on file prior [...] aspect of right wrist Generalized anxiety disorder Hearing loss Hernia, umbilical Inflammatory arthritis Insomnia Major depressive disorder with single episode Ovarian cyst right Panic attacks Phobia, flying Seasonal allergies Supraventricular tachycardia (HCC) Tachycardia Tinnitus Past Surgical History: Procedure Laterality Date COLONOSCOPY W/ POLYPECTOMY 11/20/2023 ENDOMETRIAL ABLATION 03/07/2022 PAP SMEAR 05/28/2021 negative SALPINGECTOMY Bilateral 07/08/2018 UMBILICAL HERNIA REPAIR 07/08/2018 WISDOM TOOTH EXTRACTION Visit Vitals BP 120/80 Pulse 83 Resp 17 Ht 5' 5 Wt 168 lb SpO2 98% BMI 27.96 kg/m OB Status Ablation Smoking Status Every Day BSA 1.87 m Review of Systems Constitutional: Negative for chills, fatigue and fever. HENT: Negative for congestion, ear pain, rhinorrhea and sore throat. Eyes: Negative for pain, discharge and visual disturbance. Respiratory: Negative for cough, shortness of breath and wheezing. Cardiovascular: Negative for chest pain, palpitations and leg swelling. Gastrointestinal: Negative for abdominal pain, constipation, diarrhea, nausea and vomiting. Genitourinary: Negative for difficulty urinating, dysuria and frequency. Musculoskeletal: Negative for arthralgias and back pain. Skin: Negative for rash. See HPI Neurological: Negative for dizziness and numbness. Psychiatric/Behavioral: Negative for sleep disturbance. The patient is not nervous/anxious. Objective Physical Exam Constitutional: General: She is not in acute distress. Appearance: Normal appearance. She is well-developed. HENT: Head: Normocephalic and atraumatic. Right Ear: Tympanic membrane and ear canal normal. Left Ear: Tympanic membrane and ear canal normal. Nose: Nose normal. Mouth/Throat: Mouth: Mucous membranes are moist. Pharynx: No posterior oropharyngeal erythema. Eyes: General: No scleral icterus. Extraocular Movements: Extraocular movements intact. Conjunctiva/sclera: Conjunctivae normal. Pupils: Pupils are equal, round, and reactive to light. Cardiovascular: Rate and Rhythm: Normal rate and regular rhythm. Heart sounds: Normal heart sounds. No murmur heard. Pulmonary: Effort: Pulmonary effort is normal. No respiratory distress. Breath sounds: Normal breath sounds. No wheezing, rhonchi or rales. Abdominal: General: Bowel sounds are normal. There is no distension. Palpations: Abdomen is soft. Tenderness: There is no abdominal tenderness. There is no guarding. Musculoskeletal: General: No swelling or deformity. Normal range of motion. Cervical back: Normal range of motion and neck supple. No tenderness. Skin: General: Skin is warm and dry. Capillary Refill: Capillary refill takes less than 2 seconds. Findings: Erythema present. Comments: Scarring along left medial/superior thigh from previous infections. Two current circular lesions right medial/superior thigh, superior most lesion with pustule forming. No active drainage. See Photo Neurological: General: No focal deficit present. Mental Status: She is alert and oriented to person, place, and time. Cranial Nerves: No cranial nerve deficit. Sensory: No sensory deficit. Motor: No weakness. Gait: Gait normal. Deep Tendon Reflexes: Reflexes normal. Psychiatric: Mood and Affect: Mood normal. Behavior: Behavior normal. Thought Content: Thought content normal. Judgment: Judgment normal. Assessment/Plan Diagnoses and all orders for this visit: Wellness examination Wellness form reviewed in detail with the patient. Encouraged patient to stay up to date on immunizations and preventative testing. Encouraged healthy diet, stay active. Will continue with yearly wellness exams. Spinal stenosis in cervical region - HYDROcodone-acetaminophen ([place]) 5-325 MG tablet; Take 1 tablet by [...] reviewed for this patient. Generalized anxiety disorder Stable at this time with prn Xanax. Will continue to monitor. Hidradenitis suppurativa - doxycycline (Vibramycin) 100 MG capsule; Take 1 capsule (100 mg) by mouth in the morning and 1 capsule (100 mg) before bedtime. Do all this for 7 days. Take with at least 8 ounces (large glass) of water, do not lie down for 30 minutes after. - Ambulatory referral to Dermatology; Future Has seen HONEY LIQUEFIER in the past and was given antibiotics. States they are becoming more frequent and more painful. Dermatology referral placed for pt to Dr. Amezcua. Provided pt with Rx for Doxycycline. Continue to keep area clean and dry other than applying salve as needed. Other chronic pain Pain Management agreement reviewed with patient and signed by both patient and provider. A copy of the signed agreement was offered to the patient. Reviewed the potential risks of opioid therapy including potential for BARREL FILLER s/e, GI s/e, respiratory s/e, dermatologic s/e, and urinary s/e, in addition to potential for allergic reaction, tolerance of the medication, dependence on the medication, potential for withdrawal with abrupt cessation, and potential for addiction. Also reviewed patient responsibilities regarding opioid therapy, and reasons why medication may need to be discontinued. See Chronic Opioid Therapy Agreement document for complete details. Primary insomnia Stable at this time on Ambien. Will continue to monitor. Chronic fatigue This is a chronic medical condition that is stable since last assessment. Degenerative disc disease, cervical This is a chronic medical condition that is stable since last assessment. DUB (dysfunctional uterine bleeding) The patient is seeing a medical research scientist for this condition, treatment is deferred to that specialist. Pt is s/p Endometrial Ablation. Fear of flying This is a chronic medical condition that is stable since last assessment. Ganglion of right wrist No concerns at this time. Will monitor. Bilateral hearing loss, unspecified hearing loss type This is a chronic medical condition that is stable since last assessment. Inflammatory arthritis This is a chronic medical condition that is stable since last assessment. Moderate major depression (HCC) This is a chronic medical condition that is stable since last assessment. Panic attacks This is a chronic medical condition that is stable since last assessment. Seasonal allergies This is a chronic medical condition that is stable since last assessment. Supraventricular tachycardia (HCC) The patient is seeing a medical research scientist for this condition, treatment is deferred to that specialist. Correspondence from that specialist and any available testing were reviewed during today's visit. Bilateral tinnitus This is a chronic medical condition that is stable since last assessment. Tobacco dependence Discussed smoking cessation with the patient. Encouraged patient to cut back and soon quit smoking. Health risks of smoking, and benefits of quitting reviewed with the patient. Overweight Encouraged portion control, decrease simple sugars and carbohydrates, gradually increase activity level. Aim for gradual steady weight loss. Echocardiogram abnormal The patient is seeing a medical research scientist for this condition, treatment is deferred to that specialist. Correspondence from that specialist and any available testing were reviewed during today's visit. Mitral valve prolapse The patient is seeing a medical research scientist for this condition, treatment is deferred to that specialist. Correspondence from that specialist and any available testing were reviewed during today's visit. Palpitations The patient is seeing a medical research scientist for this condition, treatment is deferred to that specialist. Correspondence from that specialist and any available testing were reviewed during today's visit. Sinus tachycardia The patient is seeing a medical research scientist for this condition, treatment is deferred to that specialist. Correspondence from that specialist and any available testing were reviewed during today's visit. Family history of heart disease The patient is seeing a medical research scientist for this condition, treatment is deferred to that specialist. Correspondence from that specialist and any available testing were reviewed during today's visit. PVC (premature ventricular contraction) The patient is seeing a medical research scientist for this condition, treatment is deferred to that specialist. Correspondence from that specialist and any available testing were reviewed during today's visit. Alternating constipation and diarrhea This is a chronic medical condition that is stable since last assessment. Aplasia of body of uterus The patient is seeing a medical research scientist for this condition, treatment is deferred to that specialist. Pt is s/p Endometrial Ablation. History of bilateral tubal ligation The patient is seeing a medical research scientist for this condition, treatment is deferred to that specialist. History of umbilical hernia This is a chronic medical condition that is stable since last assessment. Dyspnea on exertion The patient is seeing a medical research scientist for this condition, treatment is deferred to that specialist. Correspondence from that specialist and any available testing were reviewed during today's visit. Sleep apnea, unspecified type Suspected by Cardiology. Tobacco abuse Discussed smoking cessation with the patient. Encouraged patient to cut back and soon quit smoking. Health risks of smoking, and benefits of quitting reviewed with the patient. Precordial pain The patient is seeing a medical research scientist for this condition, treatment is deferred to that specialist. Correspondence from that specialist and any available testing were reviewed during today's visit. Follow up in about 3 months (around 05/09/2025) for Medication Follow Up. documented in this encounter [facility] 01-30-2025 Telephone encounter Note OARRS reviewed, Rx sent into patient's pharmacy. [facility] 01-30-2025 Miscellaneous Notes OARRS reviewed, Rx sent into patient's pharmacy. documented in this encounter [facility] 01-04-2025 Telephone encounter Note OARRS reviewed, Rx sent into patient's pharmacy. [facility] 01-04-2025 Miscellaneous Notes OARRS reviewed, Rx sent into patient's pharmacy. documented in this encounter [facility] 12-07-2024 Telephone encounter Note OARRS reviewed, Rx sent into patient's pharmacy. [facility] 12-07-2024 Miscellaneous Notes OARRS reviewed, Rx sent into patient's pharmacy. documented in this encounter [facility] 12-06-2024 Telephone encounter Note OARRS reviewed, Rx sent into patient's pharmacy. [facility] 12-06-2024 Miscellaneous Notes OARRS reviewed, Rx sent into patient's pharmacy. documented in this encounter [facility] 11-30-2024 History of Presen t illness Narrative Images from the original note were not included. HPI Insomnia Additional comments: Currently on Ambien as needed and is working well for her. Neck Pain Additional comments: Currently on hydrocodone as needed and is working well for her. Mass Additional comments: Right side of neck, she felt it this morning. Denies pain, tenderness. States yesterday she had another bump on the right side of her neck, but it was gone a few hours later. Last edited by ROSIE Infante on 11/30/2024 2:00 PM. Subjective Patient ID: Kate Hazel is a 44 y.o. female who presents for eye swelling. Kate is present today for evaluation of eye swelling. Admits its her right eye and it started about 3 weeks ago, felt like it was pink eye, tenderness around the eye socket and eyeball, used medicated eye drops in them. It was feeling better but then about a week ago started feeling sore again around her eye socket when she pushes on it, does get a little blurry vision and feels like there is something in the corner of her eye but there is nothing there. Current Outpatient Medications on File Prior to Visit Medication Sig Dispense Refill ALPRAZolam (Xanax) 0.25 MG tablet Take 1 tablet (0.25 mg) by mouth 2 (two) times a day as needed for anxiety 60 tablet 0 cetirizine (ZyrTEC) 10 MG tablet TAKE 1 TABLET BY MOUTH DAILY at the same time each day 100 tablet 3 diclofenac (Cataflam) 50 MG tablet Take 1 tablet (50 mg) by mouth in the morning and 1 tablet (50 mg) before bedtime. 60 tablet 1 HYDROcodone-acetaminophen ([place]) 5-325 MG tablet Take 1 tablet by mouth every 6 (six) hours if needed for severe pain 120 tablet 0 meclizine (Antivert) 25 MG tablet Take 1 tablet (25 mg) by mouth 3 (three) times a day as needed for dizziness 30 tablet 2 metFORMIN XR (Glucophage-XR) 500 MG 24 hr tablet Take 1 tablet (500 mg) by mouth in the evening. Take with meals Do not crush, chew, or split. (Patient not taking: Reported on 11/30/2024) 90 tablet 1 metoprolol succinate XL (Toprol-XL) 50 MG 24 hr tablet take 3 tablet by mouth once daily 300 tablet 3 naloxone (Narcan) 4 mg/0.1 mL nasal spray Administer 2 sprays (8 mg) into affected nostril(s) if needed for opioid reversal 2 each 0 orphenadrine (Norflex) 100 MG 12 hr tablet Take 1 tablet (100 mg) by mouth 2 (two) times a day as needed for muscle spasms Do not crush, chew, or split. 60 tablet 1 zolpidem (Ambien) 10 MG tablet Take 0.5-1 tablets (5-10 mg) by mouth as needed at bedtime for sleep 30 tablet 0 No current facility-administered medications on [...] Phobia, flying (CMS/HCC) Seasonal allergies Supraventricular tachycardia Tachycardia Tinnitus Past Surgical History: Procedure Laterality Date COLONOSCOPY W/ POLYPECTOMY 11/20/2023 ENDOMETRIAL ABLATION 03/07/2022 PAP SMEAR 05/28/2021 negative SALPINGECTOMY Bilateral 07/08/2018 UMBILICAL HERNIA REPAIR 07/08/2018 WISDOM TOOTH EXTRACTION Visit Vitals BP 124/76 Pulse 84 Resp 16 Ht 5' 5 Wt 172 lb 12.8 oz SpO2 97% BMI 28.76 kg/m OB Status Ablation Smoking Status Every Day BSA 1.9 m Review of Systems Constitutional: Negative for chills, fatigue and fever. Eyes: Positive for pain, redness and visual disturbance. Respiratory: Negative for cough, shortness of breath and wheezing. Cardiovascular: Negative for chest pain, palpitations and leg swelling. Gastrointestinal: Negative for abdominal pain, constipation, diarrhea, nausea and vomiting. Skin: Negative for rash. Objective Physical Exam Constitutional: General: She is not in acute distress. Appearance: Normal appearance. She is well-developed. HENT: Head: Normocephalic and atraumatic. Eyes: General: Lids are normal. No scleral icterus. Extraocular Movements: Extraocular movements intact. Conjunctiva/sclera: Conjunctivae normal. Pupils: Pupils are equal, round, and reactive to light. Comments: No pain with eye movements Neck: Comments: Right supraclavicular lymph node noted, mildly tender, freely mobile, smooth, roughly marble sized. Cardiovascular: Rate and Rhythm: Normal rate and regular rhythm. Heart sounds: Normal heart sounds. No murmur heard. Pulmonary: Effort: Pulmonary effort is normal. No respiratory distress. Breath sounds: Normal breath sounds. No wheezing, rhonchi or rales. Lymphadenopathy: Cervical: Right cervical: No superficial, deep or posterior cervical adenopathy. Left cervical: No superficial, deep or posterior cervical adenopathy. Skin: General: Skin is warm and dry. Neurological: General: No focal deficit present. Mental Status: She is alert and oriented to person, place, and time. Psychiatric: Mood and Affect: Mood normal. Behavior: Behavior normal. Assessment/Plan Diagnoses and all orders for this visit: Enlarged lymph node in neck - predniSONE (Deltasone) 10 MG tablet; Take 1 tablet (10 mg) by mouth in the morning and 1 tablet (10 mg) at noon. Do all this for 3 days. Take with breakfast and with lunch. Start Prednisone as prescribed. Take with food. Should help with the remaining eye discomfort and the swelling of the lymph node. Advised that this is likely a reactive lymph node and the swelling should gradually resolve. If the area remains swollen over the next 2-3 weeks, she can contact the office and an US would be ordered for further evaluation. She voices understanding. Discomfort of right eye This has gradually improved since onset. Eye is normal on exam today. She can follow up with her Digital Forensic Analyst as scheduled. Primary insomnia Sleep is stable on the Ambien. She can continue with the medication as needed for sleep. Will continue to monitor. Spinal stenosis in cervical region Medication choice and dosage is appropriate for [...] OARRS Report was reviewed for this patient. Follow up in about 3 months (around 03/02/2025) for Medication Follow Up. documented in this encounter [facility] 11-03-2024 Telephone encounter Note OARRS reviewed, Rx sent into patient's pharmacy. [facility] 11-03-2024 Miscellaneous Notes OARRS reviewed, Rx sent into patient's pharmacy. documented in this encounter [facility] 09-21-2024 Telephone encounter Note Received no call back; per message left she can contact if needed. [facility] 09-21-2024 Miscellaneous Notes Received no call back; per message left she can contact if needed. Tried to contact due to fu for vertigo on 09/12 was cx over automated reminder. I requested a call back to verify status and noted if rs is needed we can do so. documented in this encounter [facility] 09-15-2024 Telephone encounter Note Tried to contact due to fu for vertigo on 09/12 was cx over automated reminder. I requested a call back to verify status and noted if rs is needed we can do so. [facility] 09-12-2024 Telephone encounter Note OARRS reviewed, Rx sent into patient's pharmacy. [facility] 09-12-2024 Miscellaneous Notes OARRS reviewed, Rx sent into patient's pharmacy. documented in this encounter [facility] 09-05-2024 Telephone encounter Note She called back and we scheduled her for PT Hollie 09/06 w/ Tong Macias, PT @ 10:30. [facility] 09-05-2024 Miscellaneous Notes She called back and we scheduled her for PT Eval 09/06 w/ Tong Macias, PT @ 10:30. Tried to contact re: receiving referral for Vertigo; but had to lm requesting a call back to offer PT Eval tomorrow. documented in this encounter [facility] 09-05-2024 Telephone encounter Note Tried to contact re: receiving referral for Vertigo; but had to lm requesting a call back to offer PT Eval tomorrow. [facility] 09-05-2024 History of Presen t illness Narrative Images from the original note were not included. Subjective Patient ID: Kate Hazel is a 44 y.o. female who presents for a fall. Kate presents today for a fall down the stairs a week ago and 4 days after the fall she is feeling dizzy. When she is up walking around she feels better, but when she is laying in bed she is dizzy. No ER visit. When she fell her knee gave out and she hit her lower back and her spine. She was given Metformin for weight lose and they made her dizzy so she stopped taking it Current Outpatient Medications on File Prior to Visit Medication Sig Dispense Refill ALPRAZolam (Xanax) 0.25 MG tablet Take 1 tablet (0.25 mg) by mouth every 12 (twelve) hours if needed for anxiety 60 tablet 0 cetirizine (ZyrTEC) 10 MG tablet TAKE 1 TABLET BY MOUTH DAILY at the same time each day 100 tablet 3 HYDROcodone-acetaminophen ([place]) 5-325 MG tablet Take 1 tablet by mouth every 6 (six) hours if needed for severe pain 120 tablet 0 metFORMIN XR (Glucophage-XR) 500 MG 24 hr tablet Take 1 tablet (500 mg) by mouth in the evening. Take with meals Do not crush, chew, or split. 90 tablet 1 metoprolol succinate XL (Toprol-XL) 50 MG 24 hr tablet take 3 tablet by mouth once daily 300 tablet 3 naloxone (Narcan) 4 mg/0.1 mL nasal spray Administer 2 sprays (8 mg) into affected nostril(s) if needed for opioid reversal 2 each 0 orphenadrine (Norflex) 100 MG 12 hr tablet Take 1 tablet (100 mg) by mouth 2 (two) times a day as needed for muscle spasms Do not crush, chew, or split. 60 tablet 1 zolpidem (Ambien) 10 MG tablet Take 1 tablet (10 mg) by mouth as needed at bedtime for sleep 30 tablet 2 No current facility-administered medications on file prior [...] 07/08/2018 WISDOM TOOTH EXTRACTION Visit Vitals BP 118/74 Pulse 69 Resp 16 Ht 5' 5 Wt 178 lb 9.6 oz SpO2 98% BMI 29.72 kg/m OB Status Ablation Smoking Status Every Day BSA 1.93 m Review of Systems Objective Physical Exam HENT: Right Ear: Hearing, tympanic membrane and ear canal normal. Left Ear: Hearing, tympanic membrane and ear canal normal. Musculoskeletal: Legs: Comments: Area of pain Assessment/Plan Diagnoses and all orders for this visit: Vertigo - meclizine (Antivert) 25 MG tablet; Take 1 tablet (25 mg) by mouth 3 (three) times a day as needed for dizziness - Ambulatory referral to Physical Therapy; Future Traumatic coccydynia - diclofenac (Cataflam) 50 MG tablet; Take 1 tablet (50 mg) by mouth in the morning and 1 tablet (50 mg) before bedtime. Obesity, class 1 Weight gain - TSH; Future - T4, free; Future Follow up in about 2 weeks (around 09/19/2024) for Test/Lab Review, consider Ozempic trial. documented in this encounter [facility] 08-11-2024 Telephone encounter Note OARRS reviewed, Rx sent into patient's pharmacy. [facility] 08-11-2024 Miscellaneous Notes OARRS reviewed, Rx sent into patient's pharmacy. documented in this encounter [facility] 08-08-2024 Telephone encounter Note OARRS reviewed, Rx sent into patient's pharmacy. [facility] 08-08-2024 Miscellaneous Notes OARRS reviewed, Rx sent into patient's pharmacy. Last Ov 05-16-24 Last RF 07-12-24 documented in this encounter [facility] 08-08-2024 Telephone encounter Note Last Ov 05-16-24 Last RF 07-12-24 [facility] 07-12-2024 Telephone encounter Note OARRS reviewed, Rx sent into patient's pharmacy. [facility] 07-12-2024 Miscellaneous Notes OARRS reviewed, Rx sent into patient's pharmacy. documented in this encounter [facility] 06-14-2024 Telephone encounter Note OARRS reviewed, Rx sent into patient's pharmacy. [facility] 06-14-2024 Miscellaneous Notes OARRS reviewed, Rx sent into patient's pharmacy. documented in this encounter [facility] 06-01-2024 Note [facility] Reason for cardiology consult: Chest pain and shortness of breath Chief Complaint: Chest pain and shortness of breath HPI: Kate Hazel is a 43 y.o. female with prior history of inappropriate sinus tachycardia for which she is on metoprolol. She has no history of hypertension or hyperlipidemia or diabetes mellitus. She is on Glucophage for weight loss. She is a longtime smoker 1/2 to 1 pack/day since she was 21 years old. She states for about a year she has been experiencing chest pain which occurs usually at night time, she describes it as sharp intermittent pain at the left sternal border which comes and goes without a provoking factor. It does not occur with exertion. It occurs almost every day. Patient reports that she has anxiety and she is under a lot of stress. She reports also exertional dyspnea and even sometimes at rest she feels as if she cannot take deep breaths. She denies orthopnea or paroxysmal nocturnal dyspnea. She denies any further palpitations. She denies dizziness or syncope or near syncope. She denies legs edema or legs discomfort on exertion. She gained about 20 pounds of weight since she had her last child and she is trying to lose weight therefore she is on metformin. She does not exercise on a regular basis because of the lack of time. She admits snoring, she never been told that she stops breathing. She is tired and sleepy all the time As mentioned above she is a smoker half to 1 pack/day since she was 21-year-old. She drinks alcohol occasionally. She denies any illicit drugs. Regarding family history her mother had coronary artery disease and stent placement but she does not recall how old she was Cardiology ROS: GENERAL: Denies fever, chills, night sweats, weight loss. HEENT: Denies changes in vision, photophobia, changes in hearing, epistaxis, oral bleeding. CARDIOVASCULAR: She reports chest pain, and exertional dyspnea as described above. She denies orthopnea/PND, lower extremity edema, palpitations, lightheadedness/dizziness. RESPIRATORY: Denies coughing, wheezing GI: Denies abdominal pain, nausea/vomiting, heartburn, melena/hematochezia. RENAL: Denies dysuria, hematuria, flank pain. MSK: Denies muscle weakness/pain, arthralgias/joint pain. NEUROLOGIC: Denies LOC, weakness, numbness, headaches. SKIN: Denies abnormal rashes or bleeding. PSYCH: Denies significant anxiety, depression, sleep disturbances. Past Medical History She has no past medical history on file. Surgical History She has a past surgical history that includes Hernia repair. Social History She reports that she has been smoking cigarettes. She does not have any smokeless tobacco history on file. No history on file for alcohol use and drug use. Family History Family History Problem Relation Name Age of Onset Coronary artery disease Mother Stroke Mother Diabetes Maternal Grandmother Heart attack Maternal Grandfather Allergies Patient has no known allergies. Medications Current Outpatient Medications: ALPRAZolam (Xanax) 0.25 mg tablet, Take 0.25 mg by mouth if needed at bedtime., Disp: , Rfl: cetirizine (ZyrTEC) 10 mg tablet, Take 10 mg by mouth in the morning., Disp: , Rfl: HYDROcodone-acetaminophen ([place]) 5-325 mg tablet, Take 1 tablet by mouth every 6 (six) hours if needed., Disp: , Rfl: metFORMIN XR (Glucophage-XR) 500 mg 24 hr tablet, Take 500 mg by mouth daily with evening meal., Disp: , Rfl: metoprolol succinate XL (Toprol-XL) 50 mg 24 hr tablet, Take 50 mg by mouth in the morning., Disp: , Rfl: zolpidem (Ambien) 10 mg tablet, Take 5 mg by mouth at bedtime., Disp: , Rfl: Last Recorded Vitals Visit Vitals BP 115/74 Pulse 70 Wt 80.7 kg (178 lb) SpO2 98% BMI 29.62 kg/m??? Smoking Status Every Day BSA 1.92 m??? Physical Examination: GENERAL: alert and oriented x3, well developed, in no acute distress. HEAD: atraumatic, normocephalic. EYES: PARKER, EOMI. NECK: trachea midline, no JVD present, no carotid bruits present. CARDIAC: S1, S2 present. RRR. Soft and short systolic ejection murmur 2/6 at the aortic area, no rubs, or gallops. RESPIRATORY: CTAB, no increased effort of breathing, no rales, rhonchi, or wheezing. ABDOMEN: soft, nontender, nondistended. EXTREMITIES: no lower extremity edema,. No rash/skin discoloration present. NEURO: strength/sensation equal and symmetric in bilateral upper and lower extremities. PSYCH: appropriate mood, affect, and judgement. Labs: 11/04/2021 White blood count 7.5, hemoglobin 13.8, hematocrit 43, platelets 218 Sodium 139, potassium 3.8, BUN 9, creatinine 0.62, glucose 101, calcium 8.8, GFR above 60 Last Images: EKG today 06/01/2024 showed sinus rhythm, heart rate 69 bpm, normal EKG Holter monitor 09/22/2023 Echo 02/28/2021 Assessment and Plan: Chest pain, atypical, risk factors for coronary artery disease are smoking and family history (more content not included)... [facility] 05-16-2024 History of Presen t illness Narrative Images from the original note [...] by mouth. 1 tablet 1 [DISCONTINUED] HYDROcodone-acetaminophen ([place]) 5-325 MG tablet Take 1 tablet by [...] Spinal stenosis in cervical region - HYDROcodone-acetaminophen ([place]) 5-325 MG tablet; Take 1 tablet by [...] Follow Up. documented in this encounter [facility] 05-05-2024 History of Presen t illness Narrative Reason for Appointment: Patient ID: [...] lie down for 30 minutes after HYDROcodone-acetaminophen ([place]) 5-325 MG tablet 1 tablet, Oral, Every [...] nursing note reviewed. Exam conducted with a roofing contractor present. 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 Orders Placed This Encounter Procedures Bilateral screening mammogram Follow Up: Patient is to return in one year for annual unless needed otherwise. Documented by Fabiola Matt MA on behalf of: ROSIE Glass documented in this encounter [facility] 04-11-2024 Telephone encounter Note OARRS reviewed, Rx sent into patient's pharmacy. [facility] 04-11-2024 Miscellaneous Notes OARRS reviewed, Rx sent into patient's pharmacy. documented in this encounter [facility] 11-20-2023 Procedure note [facility] 08-01-2022 Evaluation note Encounter Date Diagnosis [...] no improvement in 5 to 7 days. [employer] Other 08-05-2022 NoteOPERATIVE NOTE OPERATION DATE: 02/28/2022 PROCEDURE: Yue endometrial ablation with hysteroscopy with bilateral laparoscopic salpingectomy. PREOPERATIVE DIAGNOSIS: Menorrhagia, dysmenorrhea, desires permanent sterilization, multiparity. POSTOPERATIVE DIAGNOSIS: Menorrhagia, dysmenorrhea, desires permanent sterilization, multiparity. ANESTHESIA: General. SURGEON: Nba Scherer D.O. PHARMACEUTICAL ANALYST: MO Graham URINE OUTPUT: Yellow and clear. [...] anterior abdominal wall using the LigaSure. ???[facility] noteNo assessment information availableSelect Medical Special[facility] Work Phone: Evaluation note* Diagnosis Onset Date Resolution Status Alternating constipation and diarrhea acute Lower abdominal pain [facility] Work Phone: Evaluation note* Diagnosis Well woman exam with routine gynecological exam Routine gynecological examination Breast cancer screening by mammogram Cervicitis and endocervicitis Encounter for weight management [facility] Spinal stenosis in cervical region- Primary Generalized anxiety disorder (CMS/HCC) Generalized anxiety disorder Chest pain, unspecified type [facility] Diagnosis Spinal stenosis in cervical region Generalized anxiety disorder (CMS/HCC) Generalized anxiety disorder [facility] Diagnosis Spinal stenosis in cervical region Generalized anxiety disorder (CMS/HCC) Generalized anxiety disorder [facility] Diagnosis Generalized anxiety disorder (CMS/HCC) Generalized anxiety disorder [facility] Diagnosis Uncomplicated opioid use- Primary Spinal stenosis in cervical region Generalized anxiety disorder (CMS/HCC) Generalized anxiety disorder [facility] Diagnosis Vertigo- Primary Dizziness and giddiness Traumatic coccydynia Obesity, class 1 Weight gain Other symptoms concerning nutrition, metabolism, and development [facility] Diagnosis Vertigo- Primary Dizziness and giddiness [facility] Diagnosis Spinal stenosis in cervical region Generalized anxiety disorder (CMS/HCC) Generalized anxiety disorder [facility] Diagnosis Spinal stenosis in cervical region [facility] Diagnosis Generalized anxiety disorder (CMS/HCC) Generalized anxiety disorder Spinal stenosis in cervical region [facility] Diagnosis Enlarged lymph node in neck- Primary Discomfort of right eye Primary insomnia Persistent disorder of initiating or maintaining sleep Spinal stenosis in cervical region [facility] Diagnosis Generalized anxiety disorder (CMS/HCC) Generalized anxiety disorder [facility] Diagnosis Spinal stenosis in cervical region [facility] Diagnosis Generalized anxiety disorder (CMS/HCC) Generalized anxiety disorder [facility] Diagnosis Primary insomnia Persistent disorder of initiating or maintaining sleep Spinal stenosis in cervical region [facility] Diagnosis Generalized anxiety disorder Generalized anxiety disorder [facility] Diagnosis Wellness examination- Primary Spinal stenosis in cervical region Generalized anxiety disorder Generalized anxiety disorder Hidradenitis suppurativa Hidradenitis Other chronic pain Primary insomnia Persistent disorder of initiating or maintaining sleep Chronic fatigue Other malaise and fatigue Degenerative disc disease, cervical DUB (dysfunctional uterine bleeding) Other disorder of menstruation and other abnormal bleeding from female genital tract Fear of flying Ganglion of right wrist Bilateral hearing loss, unspecified hearing loss type Inflammatory arthritis Unspecified inflammatory polyarthropathy Moderate major depression (HCC) Major depressive disorder, single episode, moderate Panic attacks Panic disorder without agoraphobia Seasonal allergies Allergic rhinitis, cause unspecified Supraventricular tachycardia (HCC) Other specified cardiac dysrhythmias Bilateral tinnitus Tobacco dependence Tobacco use disorder Overweight Echocardiogram abnormal Nonspecific (abnormal) findings on radiological and other examination of other intrathoracic organs Mitral valve prolapse Mitral valve disorders Palpitations Sinus tachycardia Other specified cardiac dysrhythmias Family history of heart disease PVC (premature ventricular contraction) Other premature beats Alternating constipation and diarrhea Aplasia of body of uterus History of bilateral tubal ligation History of umbilical hernia Dyspnea on exertion Other dyspnea and respiratory abnormality Sleep apnea, unspecified type Tobacco abuse Tobacco use disorder Precordial pain documented in this encounter [facility]* Diagnosis Spinal stenosis in cervical region documented in this encounter [facility]* Diagnosis Spinal stenosis in cervical region Generalized anxiety disorder Generalized anxiety disorder documented in this encounter [facility] Author Marlin Eisenberg [facility] November 20, 2023 7:46am Note Date/Time November 20, 2023 7:4 6am [facility] [address] [place] [address] Gastroenterology H&P Signed Patient: Kate Hazel MR#: [id number] : 1980 Acct:[id number] Age/Sex: 43 / F Adm Date: 4 Loc: Room: Type: [facility] Attending Dr: Marlin Eisenberg DO [...] signed by Marlin Eisenberg DO> 11/20/23 0746 [facility] Work Phone: History general Narrative - Reported* Type Description Date Medical History mitral valve prolapse Medical History anxiety Medical History tachycardia Surgical History wisdom teeth Surgical History cyst removed from right arm [employer] Other Reason for visit Narrative* Rehabilitation - Outpatient (Routine) - Authorized Specialty Diagnoses / Procedures Referred By Contac t Referred To Contact Physical Therapy Diagnoses Vertigo Procedures MI OFFICE/OUTPATIENT [facility] 60 MINUTES Ko Muro MD [address] [address] Phone: tel: fax: Gay Macias PT Referral ID Status Reason Start Date Expiration Date Visits Requested Visits Authorized [id number] Authorized Specialty Services Required 09/06/2024 11/04/2024 5 5 [facility] Healthcare Summary Purpose Family History Relationship Condition Age at Onset Recorded Date/T bruna Not Specified Diabetes mellitus Unknown Heart disease Unknown Hypertension Unknown Relationship Condition Age at Onset Recorded Date/T bruna grandparent Diabetes mellitus Unknown Not Specified Heart disease Unknown grandparent Hypertension Unknown Advance Directives Advance Directive Response Recorded Date/ Time Advance [...] and content) DATE CREATED AUTHOR 01/15/2018 Jenny hawley DATE CREATED AUTHOR AUTHOR'S ORGANIZ ATION 07/03/2022 [facility] DATE CREATED AUTHOR AUTHOR'S ORGANIZ ATION 02/14/2024 [facility] DATE CREATED AUTHOR AUTHOR'S ORGANIZ ATION 06/03/2024 [facility] DATE CREATED AUTHOR AUTHOR'S ORGANIZ ATION 02/10/2025 [facility] EPIC Care Teams (unrecognized sec tion and content) [...] Other Provider Active Start: November 20, 2023 It Application Architect Relationship Specialty Start Date End Date Ko Muro MD [address] [facility] [address] [place] [address] PCP - General Internal Medicine 12/23/22 Ko Muro MD [address] [facility] [address] [place] [address] PCP - [employer] 08/27/23 It Application Architect Relationship Specialty Start Date End Date Ko Muro MD [address] [place] [address] PCP - General Internal Medicine 12/23/22 Ko Muro MD [address] [place] [address] PCP - [employer] 08/27/23 It Application Architect Relationship Specialty Start Date End Date Ko Muro MD [address] [place] [address] PCP - General Internal Medicine 12/23/22 Ko Muro MD [address] [place] [address] PCP - [employer] 08/27/23 It Application Architect Relationship Specialty Start Date End Date Ko Muro MD [address] [place] [address] PCP - General Internal Medicine 12/23/22 Ko Muro MD [address] [place] [address] PCP - [employer] 08/27/23 It Application Architect Relationship Specialty Start Date End Date Ko Muro MD [address] [place] [address] PCP - General Internal Medicine 12/23/22 Ko Muro MD [address] [place] [address] PCP - [employer] 08/27/23 It Application Architect Relationship Specialty Start Date End Date Ko Muro MD [address] [place] [address] PCP - General Internal Medicine 12/23/22 Ko Muro MD [address] [place] [address] PCP - [employer] 08/27/23 It Application Architect Relationship Specialty Start Date End Date Ko Muro MD [address] [place] [address] PCP - General Internal Medicine 12/23/22 Ko Muro MD [address] [place] [address] PCP - [employer] 08/27/23 It Application Architect Relationship Specialty Start Date End Date Ko Muro MD [address] [place] [address] PCP - General Internal Medicine 12/23/22 Ko Muro MD [address] [place] [address] PCP - [employer] 08/27/23 It Application Architect Relationship Specialty Start Date End Date Ko Muro MD [address] [place] [address] PCP - General Internal Medicine 12/23/22 oK Muro MD [address] [place] [address] PCP - [employer] 08/27/23 It Application Architect Relationship Specialty Start Date End Date Ko Muro MD [address] [place] [address] PCP - General Internal Medicine 12/23/22 Ko Muro MD [address] [place] [address] [facility] It Application Architect Relationship Specialty Start Date End Date Ko Muro MD [address] [place] [address] PCP - General Internal Medicine 12/23/22 Ko Muro MD [address] [place] [address] PCP - [facility] 08/27/23 It Application Architect Relationship Specialty Start Date End Date Ko Muro MD [address] [place] [address] PCP - General Internal Medicine 12/23/22 Ko Muro MD [address] [place] [address] PCP - [facility] 08/27/23 It Application Architect Relationship Specialty Start Date End Date Ko Muro MD [address] [place] [address] PCP - General Internal Medicine 12/23/22 Ko Muro MD [address] [place] [address] PCP - [facility] 08/27/23 It Application Architect Relationship Specialty Start Date End Date Ko Muro MD [address] [place] [address] PCP - General Internal Medicine 12/23/22 Ko Muro MD [address] [place] [address] PCP - [employer] 08/27/23 It Application Architect Relationship Specialty Start Date End Date Ko Muro MD [address] [place] [address] PCP - General Internal Medicine 12/23/22 Ko Muro MD [address] [place] [address] PCP - [employer] 08/27/23 It Application Architect Relationship Specialty Start Date End Date Ko Muro MD [address] [place] [address] PCP - General Internal Medicine 12/23/22 Ko Muro MD [address] [place] [address] PCP - [employer] 08/27/23 It Application Architect Relationship Specialty Start Date End Date Ko Muro MD [address] [place] [address] PCP - General Internal Medicine 12/23/22 Ko Muro MD [address] [place] [address] PCP - [employer] 08/27/23 It Application Architect Relationship Specialty Start Date End Date Ko Muro MD [address] [place] [address] PCP - General Internal Medicine 12/23/22 Ko Muro MD [address] [place] [address] [facility] 08/27/23 It Application Architect Relationship Specialty Start Date End Date Ko Muro MD [address] [place] [address] PCP - General Internal Medicine 12/23/22 Ko Muro MD [address] [place] [address] PCP [facility] 08/27/23 It Application Architect Relationship Specialty Start Date End Date Ko Muro MD [address] [place] [address] PCP - General Internal Medicine 12/23/22 Ko Muro MD [address] [place] [address] PCP [facility] 08/27/23 It Application Architect Relationship Specialty Start Date End Date Ko Muro MD [address] [place] [address] PCP - General Internal Medicine 12/23/22 Ko Muro MD [address] [place] [address] PCP [facility] 08/27/23 Goals (unrecognized section and content) Goals [...] for her. Med Refill Hydrocodone, Alprazo hernandez Reason Onset Date Comments Med Refill 06/14/2024 Reason Onset Date Comments Med Refill 04/11/2024 Reason Onset Date Comments Med Refill 07/12/2024 Reason Comments Med Refill Reason Onset Date Comments Med Refill 08/11/2024 Reason Onset Date Comments re: Vertigo 09/05/2024 Call Back 09/05/2024 Reason Onset Date Comments Med Refill 09/12/2024 Reason Onset Date Comments re: CX of fu for Vertigo 09/15/2024 PT on was cx. Reason Comments Insomnia Currently on Ambien as needed and is working well for her. Neck Pain Currently on hydroco done as needed and is working well for her. Mass Right side of neck, she felt it this morning. Denies pain, tenderness. States yesterday she had another bump on the right side of her neck, but it was gone a few hours later. Reason Onset Date Comments Med Refill 12/07/2024 Reason Onset Date Comments Med Refill 01/06/2025 Reason Onset Date Comments Med Refill 03/06/2025 Reason Onset Date Comments Med Refill 03/07/2025 Reason Onset Date Comments Med Refill 04/05/2025 FOR RECORDS PERTAINING TO PATIENTS WHO ARE [...] BE BASED ON THE PRIMARY CLINICAL RECORDS. [facility] [employer] [facility]. provides no warranty or guarantee of the accuracy or completeness of information in this document.
--- NOTE | 2025-04-07 18:10 | ED_ITS ---
HPI - Dizziness General Chief Complaint: Dizziness Stated Complaint: VERY LIGHT HEADED/ TROUBLE BREATHING Time Seen by Provider: 04/07/25 17:48 Source: patient Mode of arrival: walk-in Limitations: no limitations History of Present Illness HPI Narrative: The patient is a 44-year-old female is coming to the ER with a dizziness that been going on at least for the last week. Per the patient she is mostly dizzy just when sitting up not when moving and she also mentioned that she have a history of sinus tachycardia for which she takes metoprolol Patient also is complaining of shortness of breath sometimes with exertion and cough for the last few days She denies any nausea vomiting at the moment but she had those symptoms a week ago before this started and they resolved No headache no chest pain Related Data Home Medications ?Medication ?Instructions ?Recorded ?Confirmed cetirizine 10 mg tablet mg 04/07/25 hydrocodone 5 mg-acetaminophen 325 tab 04/07/25 mg tablet metoprolol succinate 50 mg mg PO 04/07/25 tablet,extended release 24 hr Allergies Allergy/AdvReac Type Severity Reaction Status Date / Time No Known Drug Allergies Allergy Verified 04/07/25 17:37 Review of Systems ROS Status of ROS 10 or more systems reviewed and unremark able except as noted in history and below PFSH PFSH Social History Little interest or pleasure in doing things: not at all Feeling down, depressed, or hopeless: not at all Exam Narrative Exam Narrative: Nurses notes and vital signs reviewed and patient is not hypoxic. General: Well-appearing and in no apparent distress. Skin: Warm, dry, no pallor noted. No rash. Head: Normocephalic, atraumatic. Neck: Supple, non-tender. Cardiovascular: Regular Rate and Rhythm without murmur, gallop or rub. Respiratory: No accessory muscle use or respiratory distress. Lungs are clear to auscultation, no wheezing, rales or rhonchi Chest Wall: no tenderness Back: No midline thoracic or lumbar vertebral tenderness. No CVA tenderness Musculoskeletal: normal ROM, no calf or popliteal tenderness, no lower extremity edema/swelling GI: Abdomen is soft, non-distended. Normal bowel sounds. No masses appreciated. No tenderness to palpation. No rebound, guarding, or rigidity noted. Neurological: A&O x4. No cranial nerve dysfunction observed. No truncal ataxia. Moves all extremities. Sensation intact. Psychiatric: Cooperative and interactive. Normal mood and affect. Constitutional Vital Signs, click to edit/add: Last Vital Signs Temp 98.1 F 04/07/25 17:38 Pulse 72 04/07/25 17:38 Resp 18 04/07/25 17:38 BP 150/82 H 04/07/25 17:38 Pulse Ox 95 04/07/25 17:38 O2 Del Method Room Air 04/07/25 17:38 Course Vital Signs Vital signs: Vital Signs Temperature 98.1 F 04/07/25 17:38 Pulse Rate 72 04/07/25 17:38 Respiratory Rate 18 04/07/25 17:38 Blood Pressure 150/82 H 04/07/25 17:38 Pulse Oximetry 95 04/07/25 17:38 Oxygen Delivery Method Room Air 04/07/25 17:38 Temperature 98.1 F 04/07/25 17:38 Pulse Rate 72 04/07/25 17:38 Respiratory Rate 18 04/07/25 17:38 Blood Pressure 150/82 H 04/07/25 17:38 Pulse Oximetry 95 04/07/25 17:38 Oxygen Delivery Method Room Air 04/07/25 17:38 MDM - Dizziness MDM Narrative Medical decision making narrative: The patient EKG showing sinus rhythm with a heart rate of [address] elevation or depression The patient presentation is mostly secondary to hydration although we are ruling out also pneumonia pt care transferred to Dr Mera Discharge Plan Discharge Patient Disposition: Still a Patient
[2025-04-07] MEDS: 0.9 % SODIUM CHLORIDE 1,000 ML 1000 ML IV (18:20)
[2025-04-07 18:37] LABS: Hematocrit 41.2 % (36.0-48.0); Hemoglobin 13.6 g/dL (12.0-16.0); Immature Granulocytes Abs Auto 0.01 10^3/uL (0.00-0.03); Immature Granulocytes Pct Auto 0.2 % (0.0-0.5); Lymphocytes Absolute Auto 2.6 10^3/uL (1.2-3.8); Mean Corpuscular HGB Conc 33.0 g/dL (29.9-35.2); Mean Corpuscular Hemoglobin 30.1 pg (26.7-34.0); Mean Corpuscular Volume 91.2 fL (81.0-99.0); Platelet Count 219 10^3/uL (150-450); Red Blood Count 4.52 10^6/uL (4.20-5.40); White Blood Count 6.1 10^3/uL (4.0-11.0)
[2025-04-07 19:16] LABS: Alanine Aminotransferase 47 U/L (14-59); Albumin Globulin Ratio 1.2; Albumin Level 3.8 g/dL (3.4-5.0); Alkaline Phosphatase 58 U/L (46-116); Anion Gap 12.6; Aspartate Amino Transferase 19 U/L (15-37); Blood Urea Nitrogen 16.0 mg/dL (7.0-18.0); Calcium 8.9 mg/dL (8.5-10.1); Carbon Dioxide 26.2 mmol/L (21.0-32.0); Chloride 107 mmol/L (98-107); Estimated GFR (African America >60 (>=60 mL/min/1.73m^2); Estimated GFR (Non-African Ame >60 (>=60 mL/min/1.73m^2); Globulin 3.3 g/dL; Glucose 90 mg/dL (74-106); Potassium 3.8 mmol/L (3.5-5.1); Sodium 142 mmol/L (136-145); Total Protein 7.1 g/dL (6.4-8.2)
[2025-04-07] MEDS: AZITHROMYCIN 250 MG TABLET 500 MG PO (19:59)
[2025-04-07] MEDS: PREDNISONE 20 MG TABLET 40 MG PO (19:59)
== END 2025-04-07 20:00 | disposition home or self-care (01) ==
PROVIDERS: Emergency Provider Emergency Medicine; PCP Internal Medicine
DX: R42 Dizziness and giddiness (principal); J06.9 Acute upper respiratory infection, unspecified; H65.93 Unspecified nonsuppurative otitis media, bilateral; Z79.899 Other long term (current) drug therapy
CPT/HCPCS: 36415; 71045; 80053; 84484; 84703; 85025; 93005; 96360; 96361; 99284; 99285; J7512